=== PATIENT | female | born 1955 | race Caucasian/White ===

== ENCOUNTER 2017-12-20 12:42 | Emergency (ER) | payer OTHER, SELFPAY ==
[~2017-12-20] VITALS: Ht 157.5 cm; Wt 56.2 kg
[~2017-12-20 12:42] MED LIST: ACYC400 PO; Aspirin EC325 MG PO; CLON2 PO; CRUTCH2 XX; CYCL10 PO; Cardizem CD 12120 MG PO; DULO60 PO; ELIQUIS5 MG PO; FENT50TP TOP; Fludrocortison0.1 MG PO; GABA300 PO; HYDCHL12.5 PO; LISI20 PO; METCAR500 PO; METH10 PO; METO25 PO; MORP15ER PO; Nitrostat0.4 MG SL; OXYC10ER PO; POTA10T PO; PREG300 PO; Percocet 5-3251 EACH PO; REQUIP XL6 MG PO; ROPI1 PO; SOMA250 MG PO; TRAM50 PO; TRAZ100 PO; TRAZ50 PO; TRIA80TC TOP; Voltaren100 GM TP; XARELTO20 MG PO; Zanaflex4 MG PO
[2017-12-20] MEDS ORDERED: Trazodone HCl300 MG (13:31)
[2017-12-20] MEDS ORDERED: NORTHERA300 MG PO (13:32)
[2017-12-20] MEDS ORDERED: Cymbalta60 MG (13:32)
[2017-12-20] MEDS ORDERED: Percocet 5-3251 EACH PO (13:34)
[2017-12-20] MEDS ORDERED: Crutch1 EACH UD (13:35)
[2018-10-16] MEDS ORDERED: Robaxin500 MG PO (18:14)
[2018-10-16] MEDS ORDERED: Prednisone20 MG PO (18:14)
[2018-10-16] MEDS ORDERED: Naprosyn500 MG PO (18:14)
[2018-10-16] MEDS ORDERED: KETO10 PO (18:14)
== END 2017-12-20 14:20 | disposition home or self-care (01) ==
LOC: ER 12:42
DX: S82.61XA Displaced fracture of lateral malleolus of right fibula, initial encounter for closed fracture (principal); I10 Essential (primary) hypertension; G25.81 Restless legs syndrome; I48.91 Unspecified atrial fibrillation; Z79.891 Long term (current) use of opiate analgesic; Z79.899 Other long term (current) drug therapy; I95.1 Orthostatic hypotension; X50.9XXA Other and unspecified overexertion or strenuous movements or postures, initial encounter
CPT/HCPCS: 29515; 73610; 99283

== ENCOUNTER 2019-01-29 00:56 | Day surgery (SDC) | payer MEDICARE, OTHER ==
[~2019-01-29 00:56] MED LIST changes: +Crutch1 EACH UD; +Cymbalta60 MG; +KETO10 PO; +NORTHERA300 MG PO; +Naprosyn500 MG PO; +Prednisone20 MG PO; +Robaxin500 MG PO; +Trazodone HCl300 MG
== END 2019-01-29 08:18 | disposition home or self-care (01) ==
LOC: ATC 00:56
DX: I95.1 Orthostatic hypotension (principal)
CPT/HCPCS: 96372; J0834

== ENCOUNTER 2019-06-30 08:57 | Day surgery (SDC) | payer OTHER, MEDICARE ==
--- NOTE | 2019-06-30 12:34 | NUR ---
Discharge instructions reviewed with patient. Patient verbalizes understanding. Copy given to patient to take home. Discharged via wheelchair to private car for ride home. PT RIDE HOME IS .
[2019-08-05] MEDS ORDERED: Fludrocortison0.1 MG PO (10:47)
[2019-08-05] MEDS ORDERED: Midodrine HCl10 MG PO (10:48)
[2019-08-05] MEDS ORDERED: DULO60 PO (10:48)
[2019-08-05] MEDS ORDERED: ACYC400 PO (10:48)
[2019-08-05] MEDS ORDERED: PREG300 PO (10:49)
[2019-08-05] MEDS ORDERED: Nitrostat0.4 MG SL (10:49)
[2019-08-05] MEDS ORDERED: GABA300 PO (10:50)
[2019-08-05] MEDS ORDERED: VOLTAREN100 GM TOP (10:50)
[2019-08-05] MEDS ORDERED: TRIA15CR3 TOP (10:50)
[2019-08-05] MEDS ORDERED: FERSU300 PO (10:51)
[2019-08-05] MEDS ORDERED: NORTHERA100 MG PO (10:52)
[2019-08-05] MEDS ORDERED: GLUCOSE SHOT PO (10:53)
[2019-08-05] MEDS ORDERED: HYDMOR2 PO (10:53)
== END 2019-06-30 22:47 | disposition home or self-care (01) ==
LOC: RAD 08:57 → CT 10:00 → RAD 22:47
DX: M51.16 Intervertebral disc disorders with radiculopathy, lumbar region (principal); M47.27 Other spondylosis with radiculopathy, lumbosacral region; M96.1 Postlaminectomy syndrome, not elsewhere classified; M48.061 Spinal stenosis, lumbar region without neurogenic claudication; M43.16 Spondylolisthesis, lumbar region; M70.61 Trochanteric bursitis, right hip; M16.11 Unilateral primary osteoarthritis, right hip; D64.9 Anemia, unspecified; M75.51 Bursitis of right shoulder
CPT/HCPCS: 62304; 72132; Q9966

== ENCOUNTER 2019-08-13 07:41 | Day surgery (SDC) | payer MEDICARE, OTHER ==
[~2019-08-13] VITALS: Ht 154.9 cm; Wt 57.5 kg
[~2019-08-13 07:41] MED LIST changes: +FERSU300 PO; +GLUCOSE SHOT PO; +HYDMOR2 PO; +Midodrine HCl10 MG PO; +NORTHERA100 MG PO; +TRIA15CR3 TOP; +VOLTAREN100 GM TOP
--- NOTE | 2019-08-13 09:07 | NUR ---
08/13/19 0907 Leslie Sands PROCEDURE STOPPED DUE TO PLUGGED SCOPE-SCOPE CHANGED OUT AND RESTART AT 09 ORANGE SCOPE WAS FIRST THEN RED/GREEN
== END 2019-08-13 10:06 | disposition home or self-care (01) ==
LOC: ORSCSDS 07:41
PROVIDERS: Internal Medicine Gastroenterology
PROC: 0DBL8ZX Excision of Transverse Colon, Via Natural or Artificial Opening Endoscopic, Diagnostic (ICD-10-PCS; principal; 2019-08-13 09:00)
PROC: 0D5L8ZZ Destruction of Transverse Colon, Via Natural or Artificial Opening Endoscopic (ICD-10-PCS; principal; 2019-08-13 09:00)
PROC: 0DBN8ZX Excision of Sigmoid Colon, Via Natural or Artificial Opening Endoscopic, Diagnostic (ICD-10-PCS; principal; 2019-08-13 09:00)
DX: Z12.11 Encounter for screening for malignant neoplasm of colon (principal); Z86.010 Personal history of colon polyps; D12.3 Benign neoplasm of transverse colon; K63.5 Polyp of colon; Z15.09 Genetic susceptibility to other malignant neoplasm; I10 Essential (primary) hypertension; Z87.891 Personal history of nicotine dependence; Z79.899 Other long term (current) drug therapy; Q27.33 Arteriovenous malformation of digestive system vessel; K64.8 Other hemorrhoids
CPT/HCPCS: 88305; J2405; J2704; J7120

== ENCOUNTER 2019-08-26 21:14 | Observation (INO) | payer OTHER, MEDICARE ==
[~2019-08-26] VITALS: Ht 154.9 cm; Wt 66.0 kg
[2019-08-26 22:13] LABS: BASOPHILS ABSOLUTE AUTO 0.03 K/mm3 (0.00-0.23); BASOPHILS PERCENT AUTO 0 % (0-2); EOSINOPHILS PERCENT AUTO 1 % (0-6); Hematocrit 29.2 % (33.0-51.0); Hemoglobin 9.5 g/dL (11.5-16.0); IMMATURE GRAN ABSOLUTE AUTO 0.05 K/mm3 (0.00-0.10); IMMATURE GRAN PERCENT AUTO 1 % (0-1); LYMPHOCYTES ABSOLUTE AUTO 0.67 K/mm3 (0.84-5.20); LYMPHOCYTES PERCENT AUTO 7 % (21-46); MONOCYTES ABSOLUTE AUTO 0.84 K/mm3 (0.16-1.47); MONOCYTES PERCENT AUTO 8 % (4-13); Mean Corpuscular HGB 29.9 pg (26.0-34.0); Mean Corpuscular HGB Conc 32.5 g/dL (31.5-36.5); Mean Corpuscular Volume 92 fL (80-100); Mean Platelet Volume 10.9 fL (9.1-12.4); NEUTROPHILS ABSOLUTE AUTO 8.29 K/mm3 (1.96-9.15); NEUTROPHILS PERCENT AUTO 83 % (41-73); Platelet Count 173 K/mm3 (150-400); RDW Coefficient Variation 12.7 % (11.7-14.2); RDW Standard Deviation 42.3 fL (35.1-46.3); Red Blood Cell Count 3.18 M/mm3 (3.80-5.20); White Blood Cell Count 9.98 K/mm3 (4.00-11.30)
[2019-08-26 22:33] LABS: Alanine Aminotransfer (ALT/SGP 14 U/L (12-78); Albumin, Blood 2.7 g/dL (3.4-5.0); Albumin/Globulin Ratio 0.9 (0.8-1.8); Alk Phos 102 U/L (50-136); Anion Gap 2 mmol/L (6-16); Aspartate Aminotrans (AST/SGOT 24 U/L (12-37); Bilirubin, Total 0.7 mg/dL (0.1-1.0); Blood Urea Nitrogen 14 mg/dL (8-24); Bun/Creatinine Ratio 21.6 (12.0-20.0); CO2, Blood 31 mmol/L (21-32); Calcium, Blood 8.4 mg/dL (8.5-10.1); Chloride, Blood 101 mmol/L (98-108); Creatinine, Blood 0.65 mg/dL (0.40-1.00); Glomerular Filtration Rate >60 (60-); Glucose, Blood 109 mg/dL (70-99); Potassium, Blood 3.5 mmol/L (3.5-5.5); Sodium, Blood 134 mmol/L (136-145); Total Protein, Blood 5.7 g/dL (6.4-8.2)
--- NOTE | 2019-08-27 02:49 | NUR ---
PCU ADMIT PT BROUGHT TO PCU RM 01 FROM ER BY PAULO @ 0200. PT SLID OVER FROM ER AUDREYRNEY TO PCU BED BY 4 STAFF. PT REPORTED TO HAVE CONVERTED FROM AFIB ON THE CARDIZEM GTT @ 5 MG/HR WHILE IN THE ER PRIOR TO COMING TO THE FLOOR. EKG PRINTED IN CHART. PT FOUND TO BE IN NSR, HR 70'S W/ A BP OF 88/64 UPON ARRIVAL TO UNIT. POWERGLIDE PLACED IN AUGUSTINA BY EGG CASER. NS GTT INFUSING PER ORDERS. PT C/O BACK, HIP, AND LEG PAIN. PT REPORTS FALLING AT HOME AFTER DISCHARGING HOME FROM [facility] AFTER BACK SURGERY. PT RESTLESS IN BED, RATING PAIN A 8/10. PT UNABLE TO KEEP LEGS STILL. MEDICATION PER EMAR/PT REQUEST. WILL CONTINUE TO MONITOR AND PROVIDE CARE.
[2019-08-27 05:01] LABS: Free Thyroxine 1.1 ng/dL (0.70-1.60)
[2019-08-27 05:03] LABS: Triiodothyronine, Free 2.28 pg/mL (2.18-3.98)
--- NOTE | 2019-08-27 05:49 | NUR ---
SHIFT SUMMARY PT A&O X4. MONITOR SHOWS NSR, HR 70'S. BP IMPROVING. VSS. PT PAINFUL W/ MOVEMENT. PT C/O PAIN TO BACK, HIPS, AND LEGS, MEDICATING PER EMAR/PT REQUEST. 1 PERSON ASSIST TO BEDSIDE COMMODE W/ CAREFUL PT TRANSFER KEEPING PT'S BACK STRAIGHT. NS GTT INFUSING PER ORDERS VIA AUGUSTINA POWERGLIDE. WILL CONTINUE TO MONITOR AND PROVIDE CARE UNTIL REPORT OFF TO DAY SHIFT RN.
--- NOTE | 2019-08-27 17:27 | NUR ---
SHIFT SUMMARY PT ALERT AND ORIENTED. VS STABLE. O2 SATS REMAIN ABOVE 90% ON RA. PT HAS BEEN IN NSR ALL SHIFT. PT COMPLAINS OF PAIN IN HER BACK AND MEDICATED PER EMAR. PT UNSTEADY ON FEET. PT USES FWW AND 1 ASSIST TO BSC. PT ABLE TO REPOSITION HERSELF IN BED. SMALL SWOLLEN AREA IN LOWER BACK DR. JOHNSON AWARE IS UNCHANGED SINCE THIS AM. WILL CONTINUE TO MONITOR CLOSELY AND REPORT TO ONCOMING RN. CALL LIGHT IN REACH.
[2019-08-28 04:29] LABS: BASOPHILS ABSOLUTE AUTO 0.02 K/mm3 (0.00-0.23); BASOPHILS PERCENT AUTO 0 % (0-2); EOSINOPHILS ABSOLUTE AUTO 0.17 K/mm3 (0.00-0.68); EOSINOPHILS PERCENT AUTO 3 % (0-6); Hematocrit 26.7 % (33.0-51.0); Hemoglobin 8.6 g/dL (11.5-16.0); IMMATURE GRAN ABSOLUTE AUTO 0.03 K/mm3 (0.00-0.10); IMMATURE GRAN PERCENT AUTO 1 % (0-1); LYMPHOCYTES ABSOLUTE AUTO 0.88 K/mm3 (0.84-5.20); LYMPHOCYTES PERCENT AUTO 18 % (21-46); MONOCYTES ABSOLUTE AUTO 0.49 K/mm3 (0.16-1.47); MONOCYTES PERCENT AUTO 10 % (4-13); Mean Corpuscular HGB Conc 32.2 g/dL (31.5-36.5); Mean Platelet Volume 10.6 fL (9.1-12.4); NEUTROPHILS ABSOLUTE AUTO 3.38 K/mm3 (1.96-9.15); NEUTROPHILS PERCENT AUTO 68 % (41-73); Platelet Count 199 K/mm3 (150-400); RDW Standard Deviation 46.3 fL (35.1-46.3); Red Blood Cell Count 2.77 M/mm3 (3.80-5.20); White Blood Cell Count 4.97 K/mm3 (4.00-11.30)
[2019-08-28 04:31] LABS: Mean Corpuscular Volume 96 fL (80-100)
[2019-08-28 04:51] LABS: Alanine Aminotransfer (ALT/SGP 13 U/L (12-78); Albumin, Blood 2.5 g/dL (3.4-5.0); Albumin/Globulin Ratio 0.8 (0.8-1.8); Alk Phos 106 U/L (50-136); Anion Gap 4 mmol/L (6-16); Aspartate Aminotrans (AST/SGOT 23 U/L (12-37); Bilirubin, Total 0.4 mg/dL (0.1-1.0); Blood Urea Nitrogen 10 mg/dL (8-24); Bun/Creatinine Ratio 16.1 (12.0-20.0); CO2, Blood 29 mmol/L (21-32); Calcium, Blood 8.4 mg/dL (8.5-10.1); Chloride, Blood 108 mmol/L (98-108); Creatinine, Blood 0.62 mg/dL (0.40-1.00); Globulin, Blood 3.3 g/dL (2.2-4.0); Glomerular Filtration Rate >60 (60-); Glucose, Blood 78 mg/dL (70-99); Potassium, Blood 3.5 mmol/L (3.5-5.5); Sodium, Blood 141 mmol/L (136-145); Total Protein, Blood 5.8 g/dL (6.4-8.2)
--- NOTE | 2019-08-28 05:27 | NUR ---
SUMMARY NO ACUTE CHANGES THROUGH THE NIGHT. PT REMAINS A&O X4. VSS. SINUS RHYTHEM PER WAREHOUSE FORKLIFT OPERATOR. PT HAS BEEN MEDICATED PER EMAR PRN FOR PAIN. PT ENCOUARGED TO ALTERNATE ICE & HEAT FOR PAIN ALTERNATIVES, SHE REFUSES. PT DID USE KPAD FOR A TOTAL OF 10 MINUTES AND STATES THAT IT DOES NOT HELP. REPOSITIONING OFFERED. BACK BRACE APPLIED WHILE OOB. DRSG TO BACK REMAINS C/D/I. BP MEDICATIONS WERE SENT TO THE PHARMACY FOR VERIFICATION. PT IS A 1 PERSON ASSIST TO THE BSC. WCTM. CALL LIGHT IN REACH.
[2019-08-28 15:13] LABS: Hematocrit 27.6 % (33.0-51.0); Hemoglobin 8.8 g/dL (11.5-16.0)
--- NOTE | 2019-08-28 19:37 | NUR ---
a+o but in pain, medication changed to q3 has been lowering pain level, medicated and tried nonphamalogical interventions, family in room frequently, call light in reach, saline locked, rm air
[2019-08-29 04:11] LABS: BASOPHILS ABSOLUTE AUTO 0.02 K/mm3 (0.00-0.23); BASOPHILS PERCENT AUTO 0 % (0-2); EOSINOPHILS ABSOLUTE AUTO 0.17 K/mm3 (0.00-0.68); EOSINOPHILS PERCENT AUTO 3 % (0-6); Hematocrit 27.2 % (33.0-51.0); Hemoglobin 8.9 g/dL (11.5-16.0); IMMATURE GRAN ABSOLUTE AUTO 0.03 K/mm3 (0.00-0.10); IMMATURE GRAN PERCENT AUTO 1 % (0-1); LYMPHOCYTES ABSOLUTE AUTO 1.12 K/mm3 (0.84-5.20); LYMPHOCYTES PERCENT AUTO 18 % (21-46); MONOCYTES ABSOLUTE AUTO 0.63 K/mm3 (0.16-1.47); MONOCYTES PERCENT AUTO 10 % (4-13); Mean Corpuscular HGB 30.1 pg (26.0-34.0); Mean Corpuscular HGB Conc 32.7 g/dL (31.5-36.5); Mean Platelet Volume 10.4 fL (9.1-12.4); NEUTROPHILS ABSOLUTE AUTO 4.38 K/mm3 (1.96-9.15); NEUTROPHILS PERCENT AUTO 69 % (41-73); Platelet Count 247 K/mm3 (150-400); RDW Coefficient Variation 12.8 % (11.7-14.2); RDW Standard Deviation 43.5 fL (35.1-46.3); Red Blood Cell Count 2.96 M/mm3 (3.80-5.20); White Blood Cell Count 6.35 K/mm3 (4.00-11.30)
[2019-08-29 04:12] LABS: Mean Corpuscular Volume 92 fL (80-100)
[2019-08-29 04:32] LABS: Alanine Aminotransfer (ALT/SGP 14 U/L (12-78); Albumin, Blood 2.7 g/dL (3.4-5.0); Albumin/Globulin Ratio 0.8 (0.8-1.8); Alk Phos 191 U/L (50-136); Anion Gap 5 mmol/L (6-16); Aspartate Aminotrans (AST/SGOT 23 U/L (12-37); Bilirubin, Total 0.5 mg/dL (0.1-1.0); Blood Urea Nitrogen 9 mg/dL (8-24); Bun/Creatinine Ratio 13.9 (12.0-20.0); CO2, Blood 33 mmol/L (21-32); Calcium, Blood 8.7 mg/dL (8.5-10.1); Chloride, Blood 103 mmol/L (98-108); Creatinine, Blood 0.65 mg/dL (0.40-1.00); Globulin, Blood 3.2 g/dL (2.2-4.0); Glomerular Filtration Rate >60 (60-); Glucose, Blood 83 mg/dL (70-99); Potassium, Blood 3.4 mmol/L (3.5-5.5); Sodium, Blood 141 mmol/L (136-145); Total Protein, Blood 5.9 g/dL (6.4-8.2)
[2019-08-29] MEDS ORDERED: BUPR100 PO (05:59)
[2019-08-29] MEDS ORDERED: LIDOCAINE PAIN1 EACH TP (06:03)
--- NOTE | 2019-08-29 06:03 | NUR ---
ASSUMED CARE APPROXIMATELY 1900; PT A&O; SBA TO BSC; PT VERY WEAK AND PIVOTS TO COMMODE; PT STATES SHE IS NOT TO TWIST DUE TO RECENT BACK SURGERY; PT CALLS APPROPRIATELY FOR ASSISTANCE; PT HAS NUMEROUS BRUISES SCATTERED T/O DUE TO FALL AT HOME; PT STATES SHE IS IN SEVERE PAIN; MEDICATED PER EMAR; KPAD USED FOR SEVERAL HOURS, IN ADDITION TO ICE PACK, PILLOWS AND REPOSITIONING FREQUENTLY FOR COMFORT; POWERGLIDE IN L UPPER ARM FLUSHES APPROPRIATELY; PT DENIED NEED FOR [place] HOME MEDICATION; VSS; PT SLEPT FOR 2-3 HOURS IN BETWEEN INTERVENTIONS AND BATHROOM NEEDS; SKID FREE SOCKS PLACED ON PT; CALL LIGHT IN REACH; BED IN LOWEST POSITION; WILL CONTINUE TO MONITOR AND ASSESS UNTIL HAND OFF TO DAY SHIFT RN.
[2019-08-29] MEDS ORDERED: Ropinirole HCl1 MG PO (06:04)
[2019-08-29] MEDS ORDERED: RIZATRIPTAN10 MG SL (06:05)
[2019-08-29] MEDS ORDERED: METHI10 PO (06:05)
--- NOTE | 2019-08-29 11:36 | NUR ---
pain decreasing to acceptable level with medication and other nonpharmalogical interventions, pt into see pt
[2019-08-29] MEDS ORDERED: ACET325 PO (12:23)
[2019-08-29] MEDS ORDERED: CALC.25 PO (12:26)
[2019-08-29] MEDS ORDERED: HYDMOR2 PO (12:32)
--- NOTE | 2019-08-29 14:53 | NUR ---
escorted to truck, assisted in, wished them well and waved, returned wc to pcu closet, cleaned room, no possesions found
== END 2019-08-29 14:22 | disposition home or self-care (01) ==
LOC: ER 21:14 → PCU 21:15
PROVIDERS: Emergency Medicine; Family Medicine; Nurse Practitioner Acute Care; ADMIT Internal Medicine
DX: I48.92 Unspecified atrial flutter (principal); G90.8 Other disorders of autonomic nervous system; R79.89 Other specified abnormal findings of blood chemistry; E05.90 Thyrotoxicosis, unspecified without thyrotoxic crisis or storm; M79.7 Fibromyalgia; D50.0 Iron deficiency anemia secondary to blood loss (chronic); L76.32 Postprocedural hematoma of skin and subcutaneous tissue following other procedure; G25.81 Restless legs syndrome; Z98.1 Arthrodesis status; Z87.891 Personal history of nicotine dependence; Z88.5 Allergy status to narcotic agent; Z79.899 Other long term (current) drug therapy
CPT/HCPCS: 36415; 72131; 76800; 80053; 84439; 84443; 84481; 84484; 85014; 85018; 85025; 93005; 93010; 96361; 96365; 96366; 96375; 96376; 97110; 97112; 97162; 97530; 99285-25; A9270; C1751; G0378; J1170; J3010; J7030

== ENCOUNTER 2019-10-05 13:53 | Day surgery (SDC) | payer MEDICARE, OTHER ==
[~2019-10-05] VITALS: Ht 154.9 cm; Wt 58.8 kg
[~2019-10-05 13:53] MED LIST changes: +ACET325 PO; +BUPR100 PO; +CALC.25 PO; +LIDOCAINE PAIN1 EACH TP; +METHI10 PO; +RIZATRIPTAN10 MG SL; +Ropinirole HCl1 MG PO
--- NOTE | 2019-10-05 14:12 | NUR ---
10/05/19 1412 Juana Rodriguez FIRST IV STICK IN RIGHT HAND DID NOT WORK
--- NOTE | 2019-10-05 14:42 | NUR ---
10/05/19 1442 Bonita Henriquez UPON ENTERING THE OR, PT C/O DISCOMFORT IN IV. R AC APPEARED INFILTRATED, IV NOT RUNNING. ATTEMPTING TO START NEW IV AT THIS TIME
--- NOTE | 2019-10-05 15:53 | NUR ---
10/05/19 2256 Kimberly Wu WHEN ASKED PT. IF SHE HAD ANY PAIN PT. VERBALIZES HER LEGS BOTHER HER. PT. VERBALIZES HAVING RESTLESS LEG SYNDROME. PT. MOVING LEGS CONSTANTLY IN BED. FOB ELEVATED FOR PT. PT ALSO VERBALIZES HAVING SOME BACK PAIN RATING A "7". PT. CAME IN WITH BACK PAIN OF A "7".
== END 2019-10-05 15:40 | disposition home or self-care (01) ==
LOC: ORSCSDS 13:53
PROVIDERS: Internal Medicine Gastroenterology
PROC: 0DJ08ZZ Inspection of Upper Intestinal Tract, Via Natural or Artificial Opening Endoscopic (ICD-10-PCS; principal; 2019-10-05 15:15)
DX: Z15.09 Genetic susceptibility to other malignant neoplasm (principal); I10 Essential (primary) hypertension; I48.91 Unspecified atrial fibrillation; F41.8 Other specified anxiety disorders; Z79.899 Other long term (current) drug therapy
CPT/HCPCS: J2370; J2704; J7120

== ENCOUNTER → 2019-10-11 | Outpatient (CLI) | payer MEDICARE, OTHER ==
[~2019-10-11] MED LIST changes: +ONDA4ODT SL
[2019-10-13 15:07] LABS: HPV 16 Negative (Negative); HPV 18 Negative (Negative); HPV OTHER HR TYPES Negative (Negative)
== END | disposition home or self-care (01) ==
LOC: LAB 15:16 → LAB SHORT 15:16
PROVIDERS: Obstetrics & Gynecology
DX: Z01.419 Encounter for gynecological examination (general) (routine) without abnormal findings (principal)
CPT/HCPCS: 87624; G0123

== ENCOUNTER 2019-10-14 14:34 | Emergency (ER) | payer MEDICARE, OTHER ==
[~2019-10-14] VITALS: Ht 154.9 cm; Wt 59.0 kg
[~2019-10-14 14:34] MED LIST changes: -ONDA4ODT SL
[2019-10-14 15:55] LABS: BASOPHILS ABSOLUTE AUTO 0.02 K/mm3 (0.00-0.23); BASOPHILS PERCENT AUTO 0 % (0-2); EOSINOPHILS ABSOLUTE AUTO 0.02 K/mm3 (0.00-0.68); EOSINOPHILS PERCENT AUTO 0 % (0-6); Hematocrit 36.5 % (33.0-51.0); Hemoglobin 11.3 g/dL (11.5-16.0); IMMATURE GRAN ABSOLUTE AUTO 0.04 K/mm3 (0.00-0.10); IMMATURE GRAN PERCENT AUTO 0 % (0-1); LYMPHOCYTES PERCENT AUTO 20 % (21-46); MONOCYTES ABSOLUTE AUTO 0.71 K/mm3 (0.16-1.47); MONOCYTES PERCENT AUTO 8 % (4-13); Mean Corpuscular HGB 28.5 pg (26.0-34.0); Mean Platelet Volume 10.7 fL (9.1-12.4); NEUTROPHILS ABSOLUTE AUTO 6.66 K/mm3 (1.96-9.15); NEUTROPHILS PERCENT AUTO 72 % (41-73); Platelet Count 311 K/mm3 (150-400); RDW Coefficient Variation 14.7 % (11.7-14.2); RDW Standard Deviation 50.1 fL (35.1-46.3); Red Blood Cell Count 3.96 M/mm3 (3.80-5.20); White Blood Cell Count 9.25 K/mm3 (4.00-11.30)
[2019-10-14 16:15] LABS: Alanine Aminotransfer (ALT/SGP 16 U/L (12-78); Albumin, Blood 3.3 g/dL (3.4-5.0); Albumin/Globulin Ratio 1.1 (0.8-1.8); Alk Phos 149 U/L (50-136); Anion Gap 6 mmol/L (6-16); Aspartate Aminotrans (AST/SGOT 13 U/L (12-37); Bilirubin, Total 0.3 mg/dL (0.1-1.0); Blood Urea Nitrogen 23 mg/dL (8-24); Bun/Creatinine Ratio 24.7 (12.0-20.0); CO2, Blood 27 mmol/L (21-32); Calcium, Blood 8.6 mg/dL (8.5-10.1); Chloride, Blood 110 mmol/L (98-108); Creatinine, Blood 0.93 mg/dL (0.40-1.00); Globulin, Blood 3.1 g/dL (2.2-4.0); Glomerular Filtration Rate >60 (60-); Glucose, Blood 100 mg/dL (70-99); Potassium, Blood 4.1 mmol/L (3.5-5.5); Sodium, Blood 143 mmol/L (136-145); Total Protein, Blood 6.4 g/dL (6.4-8.2)
[2019-10-14 16:16] LABS: Mean Corpuscular Volume 92 fL (80-100)
== END 2019-10-14 17:10 | disposition home or self-care (01) ==
LOC: ER 14:34
PROVIDERS: Physician Assistant
DX: M54.16 Radiculopathy, lumbar region (principal); I10 Essential (primary) hypertension; I48.91 Unspecified atrial fibrillation; Z88.5 Allergy status to narcotic agent; Z79.899 Other long term (current) drug therapy
CPT/HCPCS: 36415; 80053; 85025; 99283

== ENCOUNTER 2019-11-09 18:41 | Emergency (ER) | payer MEDICARE, OTHER ==
[~2019-11-09] VITALS: Ht 154.9 cm; Wt 55.3 kg
[2019-11-09 19:09] LABS: BASOPHILS ABSOLUTE AUTO 0.06 K/mm3 (0.00-0.23); BASOPHILS PERCENT AUTO 1 % (0-2); EOSINOPHILS ABSOLUTE AUTO 0.15 K/mm3 (0.00-0.68); EOSINOPHILS PERCENT AUTO 2 % (0-6); Hematocrit 45.4 % (33.0-51.0); Hemoglobin 14.2 g/dL (11.5-16.0); IMMATURE GRAN ABSOLUTE AUTO 0.04 K/mm3 (0.00-0.10); IMMATURE GRAN PERCENT AUTO 0 % (0-1); LYMPHOCYTES ABSOLUTE AUTO 3.01 K/mm3 (0.84-5.20); LYMPHOCYTES PERCENT AUTO 32 % (21-46); MONOCYTES ABSOLUTE AUTO 0.72 K/mm3 (0.16-1.47); MONOCYTES PERCENT AUTO 8 % (4-13); Mean Corpuscular HGB 27.2 pg (26.0-34.0); Mean Corpuscular HGB Conc 31.3 g/dL (31.5-36.5); Mean Corpuscular Volume 87 fL (80-100); Mean Platelet Volume 10.6 fL (9.1-12.4); NEUTROPHILS PERCENT AUTO 58 % (41-73); Platelet Count 376 K/mm3 (150-400); RDW Coefficient Variation 14.2 % (11.7-14.2); RDW Standard Deviation 45.8 fL (35.1-46.3); Red Blood Cell Count 5.22 M/mm3 (3.80-5.20); White Blood Cell Count 9.48 K/mm3 (4.00-11.30)
[2019-11-09 19:33] LABS: Alanine Aminotransfer (ALT/SGP 18 U/L (12-78); Albumin, Blood 3.8 g/dL (3.4-5.0); Albumin/Globulin Ratio 1.1 (0.8-1.8); Alk Phos 145 U/L (50-136); Anion Gap 8 mmol/L (6-16); Aspartate Aminotrans (AST/SGOT 20 U/L (12-37); Bilirubin, Total 0.6 mg/dL (0.1-1.0); Blood Urea Nitrogen 13 mg/dL (8-24); CO2, Blood 24 mmol/L (21-32); Calcium, Blood 9.6 mg/dL (8.5-10.1); Chloride, Blood 107 mmol/L (98-108); Creatinine, Blood 0.82 mg/dL (0.40-1.00); Globulin, Blood 3.6 g/dL (2.2-4.0); Glomerular Filtration Rate >60 (60-); Glucose, Blood 126 mg/dL (70-99); Potassium, Blood 3.4 mmol/L (3.5-5.5); Sodium, Blood 139 mmol/L (136-145); Total Protein, Blood 7.4 g/dL (6.4-8.2)
[2019-11-09] MEDS ORDERED: ONDA4ODT SL (22:08)
== END 2019-11-09 22:39 | disposition home or self-care (01) ==
LOC: ER 18:41
PROVIDERS: Emergency Medicine
DX: R19.7 Diarrhea, unspecified (principal); Z88.5 Allergy status to narcotic agent; Z79.899 Other long term (current) drug therapy; I10 Essential (primary) hypertension; I48.91 Unspecified atrial fibrillation
CPT/HCPCS: 80053; 83690; 85025; 96361; 96374; 96375; 99284-25; A9270-GY; J0780; J2405; J7120

== ENCOUNTER 2020-01-04 08:23 | Day surgery (SDC) | payer MEDICARE, OTHER ==
[~2020-01-04] VITALS: Ht 154.9 cm; Wt 58.7 kg
[~2020-01-04 08:23] MED LIST changes: +ONDA4ODT SL
--- NOTE | 2020-01-04 11:12 | NUR ---
01/04/20 1112 Nahomy Mcdaniel CASE DELAYED DUE TO HIGH BLOOD PRESSURE PRIOR TO STARTING PROCEDURE
== END 2020-01-04 12:04 | disposition home or self-care (01) ==
LOC: ORSCSDS 08:23
PROVIDERS: Internal Medicine Gastroenterology
PROC: 0DB58ZX Excision of Esophagus, Via Natural or Artificial Opening Endoscopic, Diagnostic (ICD-10-PCS; principal; 2020-01-04 09:45)
PROC: 0D758ZZ Dilation of Esophagus, Via Natural or Artificial Opening Endoscopic (ICD-10-PCS; principal; 2020-01-04 09:45)
DX: Z15.09 Genetic susceptibility to other malignant neoplasm (principal); M79.7 Fibromyalgia; F41.8 Other specified anxiety disorders; I10 Essential (primary) hypertension; G25.81 Restless legs syndrome; Z87.891 Personal history of nicotine dependence
CPT/HCPCS: 88305; J2370; J2704; J7120

== ENCOUNTER 2020-03-27 08:12 | Day surgery (SDC) | payer MEDICARE, OTHER ==
--- NOTE | 2020-03-27 11:55 | NUR ---
RECEIVED REPORT FROM ANITA ELIZONDO. PT WAS LAYING IN BED WATHCHING TV. DRESSING TO LUMBAR SPINE CDI. PT DENIED HEADACHE OR PAIN. DRINKING COFFEE AND EATING HARDY CRACKERS. T/O RECOVERY PT WAS SUFFERING FROM SEVERE RLS. PT BROUGHT IN HOME MEDS. PT RLS SETTLED DOWN WITH MEDS AND SHE WAS ABLE TO AMBULATE TO BR WITHOUT ASSIST. REMAINED STEADY BASELINE WITH NUERO CHECKS INTACT. BANDAID REMAINED CDI T/O RECOVERY. Discharge instructions reviewed with patient. Patient verbalizes understanding. Copy given to patient to take home. Patient States Post-Procedure ride home has been arranged. Discharged via wheelchair to private car for ride home.
== END 2020-03-27 22:39 | disposition home or self-care (01) ==
LOC: RAD 08:12
DX: M43.12 Spondylolisthesis, cervical region (principal); Z98.1 Arthrodesis status; I48.91 Unspecified atrial fibrillation; Z79.899 Other long term (current) drug therapy; Z88.5 Allergy status to narcotic agent
CPT/HCPCS: 62302; 72126; Q9966

== ENCOUNTER 2020-05-02 12:53 | Emergency (ER) | payer MEDICARE, OTHER ==
[~2020-05-02] VITALS: Ht 152.4 cm; Wt 56.7 kg
[2020-05-02 14:41] LABS: BASOPHILS ABSOLUTE AUTO 0.01 K/mm3 (0.00-0.23); BASOPHILS PERCENT AUTO 0 % (0-2); EOSINOPHILS ABSOLUTE AUTO 0.01 K/mm3 (0.00-0.68); EOSINOPHILS PERCENT AUTO 0 % (0-6); Hematocrit 43.8 % (33.0-51.0); Hemoglobin 13.9 g/dL (11.5-16.0); IMMATURE GRAN ABSOLUTE AUTO 0.02 K/mm3 (0.00-0.10); IMMATURE GRAN PERCENT AUTO 0 % (0-1); LYMPHOCYTES ABSOLUTE AUTO 0.56 K/mm3 (0.84-5.20); LYMPHOCYTES PERCENT AUTO 9 % (21-46); MONOCYTES PERCENT AUTO 2 % (4-13); Mean Corpuscular HGB 29.1 pg (26.0-34.0); Mean Corpuscular HGB Conc 31.7 g/dL (31.5-36.5); Mean Corpuscular Volume 92 fL (80-100); NEUTROPHILS ABSOLUTE AUTO 5.52 K/mm3 (1.96-9.15); NEUTROPHILS PERCENT AUTO 89 % (41-73); RDW Coefficient Variation 15.4 % (11.7-14.2); RDW Standard Deviation 50.2 fL (35.1-46.3); Red Blood Cell Count 4.78 M/mm3 (3.80-5.20); White Blood Cell Count 6.22 K/mm3 (4.00-11.30)
[2020-05-02 14:48] LABS: Mean Platelet Volume 10.5 fL (9.1-12.4); Platelet Count 238 K/mm3 (150-400)
[2020-05-02 15:00] LABS: Alanine Aminotransfer (ALT/SGP 30 U/L (12-78); Albumin, Blood 3.7 g/dL (3.4-5.0); Albumin/Globulin Ratio 1.1 (0.8-1.8); Alk Phos 142 U/L (50-136); Anion Gap 5 mmol/L (6-16); Aspartate Aminotrans (AST/SGOT 27 U/L (12-37); Bilirubin, Total 0.3 mg/dL (0.1-1.0); Blood Urea Nitrogen 22 mg/dL (8-24); Bun/Creatinine Ratio 26.8 (12.0-20.0); CO2, Blood 25 mmol/L (21-32); Calcium, Blood 8.9 mg/dL (8.5-10.1); Chloride, Blood 110 mmol/L (98-108); Creatinine, Blood 0.82 mg/dL (0.40-1.00); Globulin, Blood 3.4 g/dL (2.2-4.0); Glomerular Filtration Rate >60 (60-); Glucose, Blood 117 mg/dL (70-99); Potassium, Blood 4.5 mmol/L (3.5-5.5); Sodium, Blood 140 mmol/L (136-145); Total Protein, Blood 7.1 g/dL (6.4-8.2)
== END 2020-05-02 16:18 | disposition left against medical advice (07) ==
LOC: ER 12:53
PROVIDERS: Emergency Medicine
DX: Z53.21 Procedure and treatment not carried out due to patient leaving prior to being seen by health care provider (principal)
CPT/HCPCS: 36415; 71046; 80053; 85025; 99281

== ENCOUNTER → 2020-07-19 | Outpatient (CLI) | payer MEDICARE, OTHER | END | disposition home or self-care (01) | LOC: LAB 13:26 → LAB SHORT 13:26 | DX: R30.9 Painful micturition, unspecified (principal) | CPT/HCPCS: 87086 ==

== ENCOUNTER → 2020-11-14 | Outpatient (CLI) | payer MEDICARE, OTHER ==
[~2020-11-14] MED LIST changes: +ACYC200 PO; +ALPR.5 PO; +CYMBALTA60 M1 PO; +FERROUS SULFAT325 M3 PO; +FLUDROCORTISON0.1 M1 PO; +Flecainide Acet50 MG PO; +MIDODRINE HCL10 M2 PO; +Ondansetron Odt8 MG MM; +PHENERGAN25 MG PR; +POTCHL20ER PO; +PROM25 PO; +ROPINIROLE HCL4 M1 PO; +TEMA7.5 PO; +Tambocor100 MG PO; +Ultram50 MG PO
== END | disposition home or self-care (01) ==
LOC: PLD 13:46 → LAB SHORT 13:46
DX: C44.622 Squamous cell carcinoma of skin of right upper limb, including shoulder (principal)
CPT/HCPCS: 88305

== ENCOUNTER → 2020-12-12 | Outpatient (CLI) | payer MEDICARE | LOC: LAB SHORT 12:17 → LAB 12:17 | DX: C44.622 Squamous cell carcinoma of skin of right upper limb, including shoulder (principal) | CPT/HCPCS: 88305 ==

== ENCOUNTER → 2021-01-18 | Outpatient (CLI) | payer MEDICARE | LOC: LAB 15:52 → LAB SHORT 15:52 | DX: D48.5 Neoplasm of uncertain behavior of skin (principal); Z88.5 Allergy status to narcotic agent | CPT/HCPCS: 88304; 88305 ==

== ENCOUNTER 2021-01-31 18:41 | Emergency (ER) | payer MEDICARE ==
[~2021-01-31] VITALS: Ht 167.6 cm; Wt 54.4 kg
[~2021-01-31 18:41] MED LIST changes: -ALPR.5 PO; -CYMBALTA60 M1 PO; -FERROUS SULFAT325 M3 PO; -FLUDROCORTISON0.1 M1 PO; -MIDODRINE HCL10 M2 PO; -Ondansetron Odt8 MG MM; -PHENERGAN25 MG PR; -POTCHL20ER PO; -PROM25 PO; -ROPINIROLE HCL4 M1 PO; -TEMA7.5 PO; -Tambocor100 MG PO; -Ultram50 MG PO
[2021-01-31 20:05] LABS: BASOPHILS ABSOLUTE AUTO 0.05 K/mm3 (0.00-0.23); BASOPHILS PERCENT AUTO 1 % (0-2); EOSINOPHILS ABSOLUTE AUTO 0.02 K/mm3 (0.00-0.68); EOSINOPHILS PERCENT AUTO 0 % (0-6); Hematocrit 46.5 % (33.0-51.0); Hemoglobin 15.8 g/dL (11.5-16.0); IMMATURE GRAN ABSOLUTE AUTO 0.04 K/mm3 (0.00-0.10); IMMATURE GRAN PERCENT AUTO 0 % (0-1); LYMPHOCYTES ABSOLUTE AUTO 0.96 K/mm3 (0.84-5.20); LYMPHOCYTES PERCENT AUTO 9 % (21-46); MONOCYTES ABSOLUTE AUTO 0.41 K/mm3 (0.16-1.47); MONOCYTES PERCENT AUTO 4 % (4-13); Mean Corpuscular HGB 30.9 pg (26.0-34.0); Mean Corpuscular Volume 91 fL (80-100); Mean Platelet Volume 9.9 fL (9.1-12.4); NEUTROPHILS ABSOLUTE AUTO 9.48 K/mm3 (1.96-9.15); NEUTROPHILS PERCENT AUTO 86 % (41-73); Platelet Count 256 K/mm3 (150-400); RDW Coefficient Variation 12.6 % (11.7-14.2); RDW Standard Deviation 41.7 fL (35.1-46.3); Red Blood Cell Count 5.12 M/mm3 (3.80-5.20); White Blood Cell Count 10.96 K/mm3 (4.00-11.30)
[2021-01-31 20:31] LABS: Alanine Aminotransfer (ALT/SGP 24 U/L (12-78); Albumin, Blood 4.2 g/dL (3.4-5.0); Albumin/Globulin Ratio 1.3 (0.8-1.8); Alk Phos 112 U/L (50-136); Anion Gap 8 mmol/L (6-16); Aspartate Aminotrans (AST/SGOT 24 U/L (12-37); Bilirubin, Total 0.6 mg/dL (0.1-1.0); Blood Urea Nitrogen 15 mg/dL (8-24); Bun/Creatinine Ratio 19.8 (12.0-20.0); CO2, Blood 27 mmol/L (21-32); Calcium, Blood 9.9 mg/dL (8.5-10.1); Chloride, Blood 104 mmol/L (98-108); Creatinine, Blood 0.76 mg/dL (0.40-1.00); Ethanol (Alcohol), Blood, Med <3 mg/dL; Globulin, Blood 3.3 g/dL (2.2-4.0); Glomerular Filtration Rate >60 (60-); Glucose, Blood 147 mg/dL (70-99); Magnesium, Blood 2.1 mg/dL (1.6-2.4); Potassium, Blood 3.6 mmol/L (3.5-5.5); Sodium, Blood 139 mmol/L (136-145); Total Protein, Blood 7.5 g/dL (6.4-8.2); Troponin I <0.015 ng/mL (0.000-0.040)
[2021-01-31] MEDS ORDERED: PROM25 PO (21:32)
[2021-05-03] MEDS ORDERED: CYMBALTA60 M1 PO (10:38)
[2021-05-03] MEDS ORDERED: ALPR.5 PO (10:38)
[2021-05-03] MEDS ORDERED: Tambocor100 MG PO (10:39)
[2021-05-03] MEDS ORDERED: FLUDROCORTISON0.1 M1 PO (10:39)
[2021-05-03] MEDS ORDERED: FERROUS SULFAT325 M3 PO (10:39)
[2021-05-03] MEDS ORDERED: PREG300 PO (10:40)
[2021-05-03] MEDS ORDERED: Ondansetron Odt8 MG MM (10:40)
[2021-05-03] MEDS ORDERED: MIDODRINE HCL10 M2 PO (10:40)
[2021-05-03] MEDS ORDERED: ROPINIROLE HCL4 M1 PO ×2 (10:41→10:42)
[2021-05-03] MEDS ORDERED: TEMA7.5 PO (10:42)
[2021-05-03] MEDS ORDERED: TRAM50 PO (10:42)
== END 2021-01-31 22:08 | disposition home or self-care (01) ==
LOC: ER 18:41
PROVIDERS: Emergency Medicine
DX: R11.2 Nausea with vomiting, unspecified (principal); R10.84 Generalized abdominal pain; I10 Essential (primary) hypertension; I48.91 Unspecified atrial fibrillation; Z88.4 Allergy status to anesthetic agent; Z88.5 Allergy status to narcotic agent; Z79.899 Other long term (current) drug therapy
CPT/HCPCS: 36415; 74176; 80053; 83605; 83690; 83735; 84145; 84484; 85025; 87040; 93005; 93010; 96374; 96376; 99284-25; G0480; J2550; J7120

== ENCOUNTER 2021-02-01 20:35 | Inpatient (IN) | payer MEDICARE ==
[~2021-02-01] VITALS: Ht 157.5 cm; Wt 57.9 kg
[~2021-02-01 20:35] MED LIST changes: +PROM25 PO
[2021-02-01 21:24] LABS: BASOPHILS ABSOLUTE AUTO 0.03 K/mm3 (0.00-0.23); BASOPHILS PERCENT AUTO 0 % (0-2); EOSINOPHILS ABSOLUTE AUTO 0.02 K/mm3 (0.00-0.68); EOSINOPHILS PERCENT AUTO 0 % (0-6); Hematocrit 43.7 % (33.0-51.0); Hemoglobin 14.8 g/dL (11.5-16.0); IMMATURE GRAN ABSOLUTE AUTO 0.02 K/mm3 (0.00-0.10); IMMATURE GRAN PERCENT AUTO 0 % (0-1); LYMPHOCYTES ABSOLUTE AUTO 0.99 K/mm3 (0.84-5.20); LYMPHOCYTES PERCENT AUTO 14 % (21-46); MONOCYTES ABSOLUTE AUTO 0.54 K/mm3 (0.16-1.47); MONOCYTES PERCENT AUTO 7 % (4-13); Mean Corpuscular HGB 30.8 pg (26.0-34.0); Mean Corpuscular HGB Conc 33.9 g/dL (31.5-36.5); Mean Corpuscular Volume 91 fL (80-100); NEUTROPHILS ABSOLUTE AUTO 5.74 K/mm3 (1.96-9.15); NEUTROPHILS PERCENT AUTO 78 % (41-73); Platelet Count 242 K/mm3 (150-400); RDW Coefficient Variation 12.8 % (11.7-14.2); RDW Standard Deviation 42.7 fL (35.1-46.3); Red Blood Cell Count 4.81 M/mm3 (3.80-5.20); White Blood Cell Count 7.34 K/mm3 (4.00-11.30)
[2021-02-01 21:44] LABS: Alanine Aminotransfer (ALT/SGP 22 U/L (12-78); Albumin, Blood 3.8 g/dL (3.4-5.0); Albumin/Globulin Ratio 1.1 (0.8-1.8); Alk Phos 97 U/L (50-136); Anion Gap 9 mmol/L (6-16); Aspartate Aminotrans (AST/SGOT 21 U/L (12-37); Bilirubin, Total 0.6 mg/dL (0.1-1.0); Blood Urea Nitrogen 11 mg/dL (8-24); Bun/Creatinine Ratio 13.9 (12.0-20.0); CO2, Blood 27 mmol/L (21-32); Calcium, Blood 9.5 mg/dL (8.5-10.1); Chloride, Blood 102 mmol/L (98-108); Creatinine, Blood 0.79 mg/dL (0.40-1.00); Globulin, Blood 3.4 g/dL (2.2-4.0); Glomerular Filtration Rate >60 (60-); Glucose, Blood 109 mg/dL (70-99); Magnesium, Blood 2.1 mg/dL (1.6-2.4); Potassium, Blood 3.4 mmol/L (3.5-5.5); Sodium, Blood 138 mmol/L (136-145); Total Protein, Blood 7.2 g/dL (6.4-8.2); Troponin I <0.015 ng/mL (0.000-0.040)
[2021-02-02] MEDS ORDERED: PHENERGAN25 MG PR
[2021-02-02] MEDS ORDERED: ONDA4ODT SL (00:01)
--- NOTE | 2021-02-02 04:02 | NUR ---
PATIENT IS A NEW ADMIT FROM THE ED. THREE PERSON TRANSFER FROM [facility] TO BED. AXOX 4 AND ONE ASSIST. REPORTS ABDOMINAL PAIN. NAUSEA/VOMITING ON ADMIT. IV CIPRO INFUSING FROM THE ED. ON ROOM AIR. PENDING TELEMETRY. REPORTS RESTLESS LEGS AND REQUIP GIVEN IN ED. IV FLAGYL INFUSING. PATIENT ORIENTED TO ROOM AND CALL LIGHT SYSTEM. WARM BLANKET PROVIDED. CALL LIGHT IN REACH. WILL CONTINUE TO MONITOR.
[2021-02-02 04:44] LABS: Anion Gap 6 mmol/L (6-16); Blood Urea Nitrogen 8 mg/dL (8-24); Bun/Creatinine Ratio 12.4 (12.0-20.0); CO2, Blood 28 mmol/L (21-32); Calcium, Blood 8.6 mg/dL (8.5-10.1); Chloride, Blood 104 mmol/L (98-108); Creatinine, Blood 0.65 mg/dL (0.40-1.00); Glomerular Filtration Rate >60 (60-); Glucose, Blood 161 mg/dL (70-99); Potassium, Blood 3.1 mmol/L (3.5-5.5); Sodium, Blood 138 mmol/L (136-145)
--- NOTE | 2021-02-02 04:57 | NUR ---
MULTINEEDLE SHIRRER REPORTS NSR 73. PATIENT REMAINS NAUSEOUS AND IV ZOFRAN GIVEN PER EMAR. BACK RESTING IN BED. CALL LIGHT IN REACH.
--- NOTE | 2021-02-02 14:58 | NUR ---
PT WAS REQUESTING FLECAINIDE ACETATE 50MG TWICE DAILY THIS IS ONE OF HER HOME MEDICAITONS. PHARMACY CALLED AND HAD CONCERNS REGARDING POSSIBLE INTERACTIONS WITH PT TAKING BEING ON IV CIPROFLOXACIN AND IT CAUSING ELONGATED QT INTERVALS AND BEING MORE AT RISK WITH LOW POTASSIUM OF 3.1. DR BLAKELY WAS NOTIFIED AND MADE AWARE OF CONCERNS. DR. BLAKELY ADDED 40MEQ PO POTASSIUM TO EMAR AND PT WAS TO BE GIVEN THE FLECAINIDE SHE TAKES AT HOME. THIS ELECTRICAL INSTALLER CONTACTED [employer] JUST TO MAKE THEM AWARE AND TO NOTIFY IF ANY CHANGES WERE NOTED.
--- NOTE | 2021-02-02 16:23 | NUR ---
TRANSFERED CARE TO MIKHAIL SANDOVAL. PT AOX4 AND HAS BEEN COOPERATIVE OF CARE. PT DENIED NAUSEA AND HAS TOLERATED FULL LIQUID DIET. PT IS A STANDBY ASSIST TO RESTROOM AND CALLS APPROPRIATELY. NO DISTRESS NOTED.
--- NOTE | 2021-02-02 17:41 | NUR ---
ADMIT: 02/01/21 DISCHARGE:02/03/21 DX: Colitis CC: cpeabody CATHIE CALL: Call Mira at home for cathie RESIDENCE: home CAREGIVER: Lang Phillips, Spouse / Partner, Alexia Souza, Child, Zak Figueroa, Child, DX: Afib, chronic pain, fibromyalgia, low back pain, nausea and vomiting. see list DME: knee brace CCM: none HOME HEALTH: [email or web address] SUMMARY: Admit: 02/01/21 02/02/[address] Rashid, ETA discharge Friday. Left transition of care letter for her discharge for 1 week follow up. cp 1: Acute colitis A/P: ?? CT scan shows diffuse colitis - No signs of infectious etiology but at this point given the severity of symptoms I would start her on ciprofloxacin and Flagyl.
--- NOTE | 2021-02-02 17:42 | NUR ---
ADMIT: 02/01/21 DISCHARGE:02/03/21 DX: Colitis CC: cpeabody CATHIE CALL: Call Mira at home for cathie RESIDENCE: home CAREGIVER: Lang Phillips, Spouse / Partner, Alexia Souza, Child, Zak Figueroa, Child, DX: Afib, chronic pain, fibromyalgia, low back pain, nausea and vomiting. see list DME: knee brace CCM: none HOME HEALTH: [email or web address] SUMMARY: Admit: 02/01/21 02/02/[address] Rashid, ETA discharge Friday. Left transition of care letter for her discharge for 1 week follow up. cp 1: Acute colitis A/P: ?? CT scan shows diffuse colitis - No signs of infectious etiology but at this point given the severity of symptoms I would start her on ciprofloxacin and Flagyl.
--- NOTE | 2021-02-03 05:38 | NUR ---
SHIFT SUMMARY: VSS. AFEB. AAOX3. COMMUNICATES NEEDS. SEVERAL BOUTS OF N/V TONIGHT W/ LITTLE RELIEF FROM ANTEMETICS. STATES THAT EVEN THOUGH SHE IS EXPERIENCING N/V, "IT IS 5X BETTER THAN IT WAS LAST NIGHT". PT DEMONSTRATES ANXIETY WHILE FEELING NAUSEAUS- ROLLING AROUND BED, MOANING LOUDLY. WILL STOP WHEN INTERACTED W/ AND CALMLY HAVE DISCUSSION BUT IMMEDIATELY RETURNS TO THIS BEHAVIOR AFTER INTERACTION. ATIVAN ADMINISTERED W/ IMPROVEMENT IN ANXIETY SYMPTOMS. REPORTS ABD PAIN 06/02 STATING THIS IS IMPROVED FROM THE PREVIOUS NIGHT. ABD SOFT, TENDER THROUGHOUT, NON-DISTENDED. REPORTS NO BM SINCE ADMIT. INDEPENDENT IN ROOM. WCTM.
[2021-02-03 05:48] LABS: Anion Gap 7 mmol/L (6-16); Blood Urea Nitrogen 11 mg/dL (8-24); Bun/Creatinine Ratio 13.4 (12.0-20.0); CO2, Blood 27 mmol/L (21-32); Calcium, Blood 9.1 mg/dL (8.5-10.1); Chloride, Blood 108 mmol/L (98-108); Creatinine, Blood 0.82 mg/dL (0.40-1.00); Glomerular Filtration Rate >60 (60-); Glucose, Blood 107 mg/dL (70-99); Potassium, Blood 3.3 mmol/L (3.5-5.5); Sodium, Blood 142 mmol/L (136-145)
--- NOTE | 2021-02-03 18:39 | NUR ---
SHIFT SUMMARY PATIENT ALERT AND ORIENTED THROUGHOUT THIS SHIFT. PATIENT STATES MILD NAUSEA THIS AM. IV REMOVED DUE TO LEAKING. ATTEMPTS TO REPLACE IV UNSUCCESSFUL. PATIENT ADVANCED TO MECHANICAL SOFT DIET FOR LUNCH. PATIENT EXTREMELY NAUSEOUS AFTER LUNCH. DR BASHIR, SUBLINGUAL ZOFRAN ORDERED AND ADMINISTERED. NAUSEA REMAINS. FURTHER ATTEMPTS TO REPLACE IV HAVE BEEN UNSUCCESSFUL. PATIENT'S NAUSEA HAS DIMINISHED WITH TIME, YET PATIENT STATES THAT ORAL INTAKE EXACERBATES THE NAUSEA. PATIENT CURRENTLY SITTING UP IN BED, NURSE IN THE ROOM ATTEMPTING TO PLACE AN IV.
--- NOTE | 2021-02-04 04:47 | NUR ---
SHIFT SUMMARY: VSS. AFEB. AAOX4. PT STATES NAUSEA STILL MILDLY PRESENT BUT LARGELY IMPROVED. NO VOMITING TONIGHT. ZOFRAN GIVEN X 1. ABD NON-TENDER, NON-DISTENDED. OVERALL STATES SHE IS FEELING MUCH BETTER. TOLERATED ALL HS PO MEDS. HAS TAKEN ONLY SMALL AMTS OF PO CLEAR LIQUIDS TONIGHT. MAINTENANCE IV FLUIDS INFUSING. IV ABT PER ORDERS. NO ACUTE OVERNIGHT EVENTS. WCTM.
--- NOTE | 2021-02-04 11:46 | NUR ---
AFTER ASSESSING PATIENT IS MORNING DR BLAKELY ORDERED THAT NS W/ KCL BE TURNED DOWN FROM 125/HR TO 75/HR. ADJUSTED DRIP ON PUMP AT THAT TIME. ORDER CHANGED IN EMAR.
[2021-02-04 14:37] LABS: BASOPHILS ABSOLUTE AUTO 0.04 K/mm3 (0.00-0.23); BASOPHILS PERCENT AUTO 1 % (0-2); EOSINOPHILS ABSOLUTE AUTO 0.07 K/mm3 (0.00-0.68); EOSINOPHILS PERCENT AUTO 1 % (0-6); Hematocrit 41.4 % (33.0-51.0); Hemoglobin 13.8 g/dL (11.5-16.0); IMMATURE GRAN ABSOLUTE AUTO 0.02 K/mm3 (0.00-0.10); IMMATURE GRAN PERCENT AUTO 0 % (0-1); LYMPHOCYTES ABSOLUTE AUTO 0.87 K/mm3 (0.84-5.20); LYMPHOCYTES PERCENT AUTO 16 % (21-46); MONOCYTES ABSOLUTE AUTO 0.53 K/mm3 (0.16-1.47); MONOCYTES PERCENT AUTO 10 % (4-13); Mean Corpuscular HGB 30.5 pg (26.0-34.0); Mean Corpuscular HGB Conc 33.3 g/dL (31.5-36.5); Mean Corpuscular Volume 91 fL (80-100); Mean Platelet Volume 10.5 fL (9.1-12.4); NEUTROPHILS ABSOLUTE AUTO 4.04 K/mm3 (1.96-9.15); NEUTROPHILS PERCENT AUTO 73 % (41-73); Platelet Count 204 K/mm3 (150-400); RDW Coefficient Variation 12.8 % (11.7-14.2); RDW Standard Deviation 42.5 fL (35.1-46.3); Red Blood Cell Count 4.53 M/mm3 (3.80-5.20); White Blood Cell Count 5.57 K/mm3 (4.00-11.30)
[2021-02-04 15:10] LABS: Alanine Aminotransfer (ALT/SGP 42 U/L (12-78); Albumin, Blood 3.3 g/dL (3.4-5.0); Albumin/Globulin Ratio 1.3 (0.8-1.8); Alk Phos 75 U/L (50-136); Anion Gap 6 mmol/L (6-16); Aspartate Aminotrans (AST/SGOT 50 U/L (12-37); Bilirubin, Total 0.5 mg/dL (0.1-1.0); Blood Urea Nitrogen 7 mg/dL (8-24); Bun/Creatinine Ratio 8.9 (12.0-20.0); C-Reactive Protein, High Sens. 0.718 mg/L (0.000-3.000); CO2, Blood 28 mmol/L (21-32); Calcium, Blood 8.5 mg/dL (8.5-10.1); Chloride, Blood 107 mmol/L (98-108); Creatinine, Blood 0.79 mg/dL (0.40-1.00); Free Thyroxine 0.97 ng/dL (0.70-1.60); Globulin, Blood 2.6 g/dL (2.2-4.0); Glomerular Filtration Rate >60 (60-); Glucose, Blood 135 mg/dL (70-99); Potassium, Blood 3.4 mmol/L (3.5-5.5); Sodium, Blood 141 mmol/L (136-145); Thyroid Stimulating Hormone 0.162 uIU/mL (0.360-4.800); Total Protein, Blood 5.9 g/dL (6.4-8.2)
--- NOTE | 2021-02-04 15:10 | NUR ---
PATIENT CONTINUES TO HAVE N/V AND ELEVATED BLOOD PRESSURE. AFTER HER ELEVATED BP THIS AM SHE WAS GIVEN IV LABETALOL WITH EFFECTIVENESS HOWEVER HER BP WENT RIGHT BACK UP AND EVEN ELEVATED HIGHER THAN IT STARTED. I ENDED UP GIVING THE PATIENT SOME IV ATIVAN AND THEN RECHECKING HER BP AND IT CAME DOWN TO THE LOW ONE-TEENS SYSTOLLICALLY. PATIENT HAS BEEN HAVING NAUSEA AND HAS VOMITED A FEW TIMES AND GIVEN SOME ANTI-EMETICS WITH MODERATE EFFECTIVENESS. PATIENT INFORMED DR BLAKELY THAT SHE HAS BEEN HAVING N/V FOR 6 MONTHS, ON AND OFF. CONSULT FOR GI WAS PLACED AND CALLED IN. PATIENT CONTINUES ON IV NS W/ 20MEQ KCL; PER DR BLAKELY THE RATE WAS DECREASED FROM 125/HR TO 75/HR. PATIENT ALSO CONTINUES TO RECIEVE IV ABX WITHOUT S/SX OF ADVERSE REACTIONS NOTED OR REPORTED. PATIENT IS INDEPENDENT IN ROOM AND CALLS FOR STAFF ASSIST APPROPRIATELY. PATIENT RESTING IN BED AT THIS TIME. CALL LIGHT IS WITHIN REACH.
--- NOTE | 2021-02-05 07:52 | NUR ---
SHIFT SUMMARY: BP ELEVATED THIS AM. CAME DOWN W/ PRN LABETALOL. NO HEADACHE OR CHEST PAIN. STATES SHE FELT A LITTLE DIZZY AFTER RECEIVING PRN LABETALOL. PT DENIES N/V THRU THE NIGHT. JENNIFER CLEAR LIQUIDS. CONT W/ MILD UPPER ABD DISCOMFORT W/ PALPATION. IVF INFUSING PER ORDERS. NO ACUTE OVERNIGHT EVENTS. REPORT GIVEN TO DAY RN.
--- NOTE | 2021-02-05 17:42 | NUR ---
Care coordination referral- Admit: 02/04/21 Discharge: Dx: Acute colitis CC: kwilcox CATHIE call: Call Mira at home for CATHIE Residence: Home Caregiver: Lang Phillips, spouse, Dx: Afib, chronic pain, Fibromyalgia, low back pain, nausea and vomiting, see list DME: knee brace CCM: none Home Health: [email or web address] Summary: Admit 02/04/21 02/05/21- Per chart review, there is concern for colitis throughout colon. Pt was started on IV abx. GI consultation has been ordered. No plan for d/c at this time. -miranda
--- NOTE | 2021-02-05 18:15 | NUR ---
ALERT. ORIENTED. POOR APPETITE. IN TO SEE PATIENT WITH POSSIBLE ENDOSCOPE FOR TOMORROW. POWERGLIDE INFUSING WITHOUT DIFFICULTY. MEDICATED X 1 FOR NAUSEA WITH GOOD RESULTS. UNLABORED RESPIRATIONS. TELE ON. TM
--- NOTE | 2021-02-05 20:00 | NUR ---
ASSUMPTION OF CARE. AOX3, INDEPENDENT IN THE ROOM. DENIES ANY NAUSEA AT THIS TIME, NO PAIN EXCEPT HER CHRONIC IN NECK AND BACK WHICH IS "OK" RIGHT NOW. LUNG SOUNDS ARE CLEAR, HR SINUS ON TELE. ABDOMIN SLIGHTLY DISTENDED, TENDER, PASSING FLATUS, DOES NOT KNOW WHEN HER LAST BM WAS NOTED. STATES SHE THINKS SHE HAS COLITIS WHICH THIS CAUSED A FLARE UP. IVF INFUSING INTO POWERGLIDE WELL. DENIES ANY NEEDS AT THIS TIME. CALL LIGHT IS IN REACH.
[2021-02-05] MEDS ORDERED: TRAM50 PO (23:30)
--- NOTE | 2021-02-06 05:16 | NUR ---
SHIFT SUMMARY: AOX3, INDEPENDENT.NO N/V/D. TOLERATED CLEAR DIET WELL. GETS DIZZY UPON POSITION CHANGE OCCATIONALLY. BP RUNNING FROM 100-150'S. DIASTOLIC ELEVATED THIS AM AT 103. STATES IT DOES THAT ALL THE TIME FROM LOW TO HIGH. REST OF VITALS GOOD. PAIN TOLERABLE IN HER NECK AND BACK STATES IS CHRONIC. TELE SINUS. IVF CONTINUE TO INFUSE AT 125ML/HR. SLEPT ONLY FOR SHORT PERIODS OF TIMES TONIGHT. PLAN: NPO AFTER BREAKFAST, EDG THIS AFTERNOON, POSSIBLE DC HOME. CALL LIGHT REMAINS IN REACH.
[2021-02-06 05:19] LABS: BASOPHILS ABSOLUTE AUTO 0.03 K/mm3 (0.00-0.23); BASOPHILS PERCENT AUTO 1 % (0-2); EOSINOPHILS ABSOLUTE AUTO 0.13 K/mm3 (0.00-0.68); EOSINOPHILS PERCENT AUTO 2 % (0-6); Hematocrit 39.2 % (33.0-51.0); Hemoglobin 13.1 g/dL (11.5-16.0); IMMATURE GRAN ABSOLUTE AUTO 0.02 K/mm3 (0.00-0.10); IMMATURE GRAN PERCENT AUTO 0 % (0-1); LYMPHOCYTES ABSOLUTE AUTO 1.38 K/mm3 (0.84-5.20); LYMPHOCYTES PERCENT AUTO 25 % (21-46); MONOCYTES ABSOLUTE AUTO 0.51 K/mm3 (0.16-1.47); MONOCYTES PERCENT AUTO 9 % (4-13); Mean Corpuscular HGB Conc 33.4 g/dL (31.5-36.5); Mean Corpuscular Volume 93 fL (80-100); Mean Platelet Volume 10.6 fL (9.1-12.4); NEUTROPHILS ABSOLUTE AUTO 3.55 K/mm3 (1.96-9.15); NEUTROPHILS PERCENT AUTO 63 % (41-73); Platelet Count 229 K/mm3 (150-400); RDW Coefficient Variation 12.8 % (11.7-14.2); RDW Standard Deviation 43.8 fL (35.1-46.3); Red Blood Cell Count 4.23 M/mm3 (3.80-5.20); White Blood Cell Count 5.62 K/mm3 (4.00-11.30)
[2021-02-06 06:01] LABS: Anion Gap 7 mmol/L (6-16); Blood Urea Nitrogen 6 mg/dL (8-24); Bun/Creatinine Ratio 7.6 (12.0-20.0); CO2, Blood 27 mmol/L (21-32); Calcium, Blood 8.9 mg/dL (8.5-10.1); Chloride, Blood 106 mmol/L (98-108); Creatinine, Blood 0.79 mg/dL (0.40-1.00); Glomerular Filtration Rate >60 (60-); Glucose, Blood 90 mg/dL (70-99); Potassium, Blood 3.5 mmol/L (3.5-5.5); Sodium, Blood 140 mmol/L (136-145)
[2021-02-06 10:42] LABS: Influenza A, PCR NEGATIVE (NEGATIVE); Influenza B, PCR NEGATIVE (NEGATIVE); Resp Syncytial Virus, PCR NEGATIVE (NEGATIVE); SARS-Cov-2 (COVID-19) PCR, MMC NEGATIVE (NEGATIVE)
--- NOTE | 2021-02-06 11:54 | NUR ---
TO DAY SURGERY FOR PROCEDURE
--- NOTE | 2021-02-06 12:09 | NUR ---
PT TO DAY SURGERY VIA PAULO FOR EGD W/RN SEDATION W/DR WILSON.
--- NOTE | 2021-02-06 12:34 | NUR ---
TALKED TO ABOUT D'C TELE AND ADVISED PATIENT GETS TRANDATE PRN FOR HTN. OK TO LEAVE ON.
--- NOTE | 2021-02-06 13:08 | NUR ---
02/06/21 1308 Jalyn Trujillo History, Chart, Medications and Allergies reviewed before start of procedure.PATIENT DETERMINED TO BE ASA APPROPRIATE FOR PROPOFOL SEDATION PRIOR TO START OF PROCEDURE BY .MONITOR INTACT WITH CONTINUOUS PULSE OXIMETRY AND INTERMITTENT BP.3-LEAD EKG REVIEWED WITH PHYSICIAN PRIOR TO START OF PROCEDURE.O2 VIA N/C INTACT THROUGHOUT SEDATION/PROCEDURE.Bite Block Placed
--- NOTE | 2021-02-06 13:27 | NUR ---
ALSO CALLED TO SEE WHEN PATIENT CAN EAT.LEFT MESSAGE ON VOICE MAIL THAT PATIENT HAS GAS AND POSSIBLY ORDER SIMETHICONE. AWAITING ORDERS.
--- NOTE | 2021-02-06 14:10 | NUR ---
Metn pt. in bed resting she reports to doing much better , encouraged pt. and prayed fpr her.
--- NOTE | 2021-02-06 15:11 | NUR ---
NOTIFIED PUT IN A NOTE ON PATIENT AND LOOKS LIKE HE IS SIGNING OFF.AWAITING FURTHER ORDERS.
[2021-02-06] MEDS ORDERED: POTCHL20ER PO (16:04)
--- NOTE | 2021-02-06 17:22 | NUR ---
REVIEW D'C WITH PATIENT. AWARE HAS RXS AT [facility]. AWARE [facility] WILL CALL TO MAKE AN APPT. ANSWER ALL QUESTIONS. IV D'C WITH NO BRUISING OR SWELLING. IN W/C TO POV.
--- NOTE | 2021-02-06 22:57 | NUR ---
ADMIT: 02/04/21 DISCHARGE: 02/06/21 DX: Acute colitis CC:cpeabody CATHIE CALL: CALL MIRA AT HOME FOR CATHIE- cathie apptointmet 1 week. RESIDENCE: Home with spouce CAREGIVER: LATRICE CALDERA, SPOUSE / PARTNER, ELI HARTLEY, CHILD, CHANDAN HERZOG, CHILD, DX: AFIB, CHRONIC PAIN, FIBROMYALGIA, LOW BACK PAIN, NAUSEA AND VOMITING. SEE LIST DME: Knee brace, cane CCM: none HOME HEALTH: [facility]- 201902/07/20 does not feel home bound per Mira. SUMMARY: 02/04/21 02/06/21 Discharge home today with after Upper Endo. Has colonoscopy scheduled near the end of February with Dr Benson. REviewed discharge check list and transition of care letter and expect call on Friday or . Did not identify any addtionall care needs on discharge check list. Left my name and number as a contact to reach out if CATHIE call or follow up care is not scheduled. cp 02/05/21- Per chart review, there is concern for colitis through out colon. Pt was started on IV antibiotics. GI consult has been ordered. No plan for d/c at this time. -kjw 1: Acute colitis A/P: ?? CT scan shows diffuse colitis
[2021-05-03] MEDS ORDERED: CYMBALTA60 M1 PO (10:38)
[2021-05-03] MEDS ORDERED: ALPR.5 PO (10:38)
[2021-05-03] MEDS ORDERED: FLUDROCORTISON0.1 M1 PO (10:39)
[2021-05-03] MEDS ORDERED: Tambocor100 MG PO (10:39)
[2021-05-03] MEDS ORDERED: FERROUS SULFAT325 M3 PO (10:39)
[2021-05-03] MEDS ORDERED: MIDODRINE HCL10 M2 PO (10:40)
[2021-05-03] MEDS ORDERED: Ondansetron Odt8 MG MM (10:40)
[2021-05-03] MEDS ORDERED: PREG300 PO (10:40)
[2021-05-03] MEDS ORDERED: ROPINIROLE HCL4 M1 PO ×2 (10:41→10:42)
[2021-05-03] MEDS ORDERED: TEMA7.5 PO (10:42)
[2021-05-03] MEDS ORDERED: TRAM50 PO (10:42)
== END 2021-02-06 17:53 | disposition home or self-care (01) | DRG 392 ==
LOC: ER 20:35 → MEDS 20:36
PROVIDERS: Family Medicine; Internal Medicine; Internal Medicine Gastroenterology; Physician Assistant; ADMIT Internal Medicine
PROC: 0DB68ZX Excision of Stomach, Via Natural or Artificial Opening Endoscopic, Diagnostic (ICD-10-PCS; principal; 2021-02-06 12:30)
DX: K52.9 Noninfective gastroenteritis and colitis, unspecified (principal); B37.81 Candidal esophagitis; G90.3 Multi-system degeneration of the autonomic nervous system; E87.6 Hypokalemia; Z20.822 Contact with and (suspected) exposure to COVID-19; Z15.09 Genetic susceptibility to other malignant neoplasm; G25.81 Restless legs syndrome; M79.7 Fibromyalgia; K59.09 Other constipation; I48.0 Paroxysmal atrial fibrillation; G89.29 Other chronic pain; M85.80 Other specified disorders of bone density and structure, unspecified site; E05.90 Thyrotoxicosis, unspecified without thyrotoxic crisis or storm; M19.90 Unspecified osteoarthritis, unspecified site; I10 Essential (primary) hypertension; M54.9 Dorsalgia, unspecified; G47.00 Insomnia, unspecified; Z88.5 Allergy status to narcotic agent; Z88.8 Allergy status to other drugs, medicaments and biological substances; Z79.899 Other long term (current) drug therapy; Z98.890 Other specified postprocedural states; Z87.891 Personal history of nicotine dependence
CPT/HCPCS: 0241U; 36415; 80048; 80053; 83605; 83690; 83735; 84439; 84443; 84484; 85025; 85651; 86141; 88305; 88342; 93005; 93010; 96361; 96366; 96367; 96372; 96374; 96375; 96376; 99285-25; A9270; C9113; G0378; J0744; J1650; J1720; J2060; J2405; J2550; J2704; J2765; J3411; J3475; J3480; J7030; J7042; J7120

== ENCOUNTER 2021-02-22 07:40 | Day surgery (SDC) | payer MEDICARE ==
[~2021-02-22 07:40] MED LIST changes: +PHENERGAN25 MG PR; +POTCHL20ER PO
--- NOTE | 2021-02-22 11:44 | NUR ---
PT DCD HOME IN Discharge instructions reviewed with patient. Patient verbalizes understanding. Copy given to patient to take home. Discharged via wheelchair to private car for ride home.
[2021-05-03] MEDS ORDERED: ALPR.5 PO (10:38)
[2021-05-03] MEDS ORDERED: CYMBALTA60 M1 PO (10:38)
[2021-05-03] MEDS ORDERED: FERROUS SULFAT325 M3 PO (10:39)
[2021-05-03] MEDS ORDERED: FLUDROCORTISON0.1 M1 PO (10:39)
[2021-05-03] MEDS ORDERED: Tambocor100 MG PO (10:39)
[2021-05-03] MEDS ORDERED: PREG300 PO (10:40)
[2021-05-03] MEDS ORDERED: Ondansetron Odt8 MG MM (10:40)
[2021-05-03] MEDS ORDERED: MIDODRINE HCL10 M2 PO (10:40)
[2021-05-03] MEDS ORDERED: ROPINIROLE HCL4 M1 PO ×2 (10:41→10:42)
[2021-05-03] MEDS ORDERED: TRAM50 PO (10:42)
[2021-05-03] MEDS ORDERED: TEMA7.5 PO (10:42)
== END 2021-02-22 22:52 | disposition home or self-care (01) ==
LOC: RAD 07:40 → CT 09:00 → RAD 09:00 → EDSTATUS 09:00 → RAD 22:52
DX: M50.323 Other cervical disc degeneration at C6-C7 level (principal); I48.91 Unspecified atrial fibrillation; G25.81 Restless legs syndrome; I95.1 Orthostatic hypotension; M79.7 Fibromyalgia; E05.20 Thyrotoxicosis with toxic multinodular goiter without thyrotoxic crisis or storm; Z87.891 Personal history of nicotine dependence; Z98.1 Arthrodesis status; Z88.5 Allergy status to narcotic agent
CPT/HCPCS: 62302; 72126; Q9966

== ENCOUNTER 2021-03-08 10:40 | Emergency (ER) | payer MEDICARE ==
[~2021-03-08] VITALS: Ht 154.9 cm; Wt 52.6 kg
[2021-03-08 11:17] LABS: BASOPHILS ABSOLUTE AUTO 0.03 K/mm3 (0.00-0.23); BASOPHILS PERCENT AUTO 0 % (0-2); EOSINOPHILS PERCENT AUTO 0 % (0-6); Hematocrit 42.5 % (33.0-51.0); Hemoglobin 14.1 g/dL (11.5-16.0); IMMATURE GRAN ABSOLUTE AUTO 0.05 K/mm3 (0.00-0.10); IMMATURE GRAN PERCENT AUTO 1 % (0-1); LYMPHOCYTES ABSOLUTE AUTO 0.82 K/mm3 (0.84-5.20); LYMPHOCYTES PERCENT AUTO 8 % (21-46); MONOCYTES ABSOLUTE AUTO 0.38 K/mm3 (0.16-1.47); MONOCYTES PERCENT AUTO 4 % (4-13); Mean Corpuscular HGB 30.5 pg (26.0-34.0); Mean Corpuscular HGB Conc 33.2 g/dL (31.5-36.5); Mean Corpuscular Volume 92 fL (80-100); Mean Platelet Volume 10.6 fL (9.1-12.4); NEUTROPHILS ABSOLUTE AUTO 8.74 K/mm3 (1.96-9.15); NEUTROPHILS PERCENT AUTO 87 % (41-73); Platelet Count 306 K/mm3 (150-400); RDW Standard Deviation 43.7 fL (35.1-46.3); Red Blood Cell Count 4.63 M/mm3 (3.80-5.20); White Blood Cell Count 10.02 K/mm3 (4.00-11.30)
[2021-03-08 11:33] LABS: Alanine Aminotransfer (ALT/SGP 17 U/L (12-78); Albumin, Blood 3.9 g/dL (3.4-5.0); Albumin/Globulin Ratio 1.2 (0.8-1.8); Alk Phos 137 U/L (50-136); Anion Gap 12 mmol/L (6-16); Aspartate Aminotrans (AST/SGOT 18 U/L (12-37); Bilirubin, Total 0.6 mg/dL (0.1-1.0); Blood Urea Nitrogen 15 mg/dL (8-24); Bun/Creatinine Ratio 22.4 (12.0-20.0); CO2, Blood 26 mmol/L (21-32); Calcium, Blood 9.7 mg/dL (8.5-10.1); Chloride, Blood 103 mmol/L (98-108); Creatinine, Blood 0.67 mg/dL (0.40-1.00); Globulin, Blood 3.3 g/dL (2.2-4.0); Glomerular Filtration Rate >60 (60-); Glucose, Blood 128 mg/dL (70-99); Potassium, Blood 3.2 mmol/L (3.5-5.5); Sodium, Blood 141 mmol/L (136-145); Total Protein, Blood 7.2 g/dL (6.4-8.2)
[2021-03-08] MEDS ORDERED: ONDA4ODT SL (12:49)
[2021-03-08] MEDS ORDERED: Ultram50 MG PO (12:49)
== END 2021-03-08 13:11 | disposition home or self-care (01) ==
LOC: ER 10:40
PROVIDERS: Emergency Medicine
DX: E87.6 Hypokalemia (principal); R11.2 Nausea with vomiting, unspecified; Z98.890 Other specified postprocedural states; Z79.899 Other long term (current) drug therapy; Z88.4 Allergy status to anesthetic agent; Z88.5 Allergy status to narcotic agent
CPT/HCPCS: 36415; 80053; 85025; 96374; 96375; 99284-25; A9270; J1200; J2765; J3010; J7120

== ENCOUNTER 2021-03-09 07:56 | Emergency (ER) | payer MEDICARE ==
[~2021-03-09 07:56] MED LIST changes: +Ultram50 MG PO
== END 2021-03-09 09:08 | disposition left against medical advice (07) ==
LOC: ER 07:56
DX: Z53.21 Procedure and treatment not carried out due to patient leaving prior to being seen by health care provider (principal)

== ENCOUNTER 2021-03-09 20:46 | Emergency (ER) | payer MEDICARE ==
[~2021-03-09] VITALS: Ht 154.9 cm; Wt 52.2 kg
[2021-03-09 22:43] LABS: BASOPHILS ABSOLUTE AUTO 0.04 K/mm3 (0.00-0.23); BASOPHILS PERCENT AUTO 1 % (0-2); EOSINOPHILS ABSOLUTE AUTO 0.04 K/mm3 (0.00-0.68); EOSINOPHILS PERCENT AUTO 1 % (0-6); Hematocrit 38.7 % (33.0-51.0); Hemoglobin 13.1 g/dL (11.5-16.0); IMMATURE GRAN ABSOLUTE AUTO 0.02 K/mm3 (0.00-0.10); IMMATURE GRAN PERCENT AUTO 0 % (0-1); LYMPHOCYTES PERCENT AUTO 17 % (21-46); MONOCYTES ABSOLUTE AUTO 0.89 K/mm3 (0.16-1.47); MONOCYTES PERCENT AUTO 11 % (4-13); Mean Corpuscular HGB 30.5 pg (26.0-34.0); Mean Corpuscular HGB Conc 33.9 g/dL (31.5-36.5); Mean Corpuscular Volume 90 fL (80-100); NEUTROPHILS ABSOLUTE AUTO 5.57 K/mm3 (1.96-9.15); NEUTROPHILS PERCENT AUTO 71 % (41-73); RDW Coefficient Variation 13.2 % (11.7-14.2); RDW Standard Deviation 43.5 fL (35.1-46.3); Red Blood Cell Count 4.29 M/mm3 (3.80-5.20); White Blood Cell Count 7.86 K/mm3 (4.00-11.30)
[2021-03-09 22:45] LABS: Mean Platelet Volume 10.6 fL (9.1-12.4); Platelet Count 249 K/mm3 (150-400)
[2021-03-09 22:59] LABS: Alanine Aminotransfer (ALT/SGP 14 U/L (12-78); Albumin, Blood 3.5 g/dL (3.4-5.0); Albumin/Globulin Ratio 1.1 (0.8-1.8); Alk Phos 116 U/L (50-136); Anion Gap 10 mmol/L (6-16); Aspartate Aminotrans (AST/SGOT 18 U/L (12-37); Bilirubin, Total 0.6 mg/dL (0.1-1.0); Blood Urea Nitrogen 9 mg/dL (8-24); Bun/Creatinine Ratio 10.6 (12.0-20.0); CO2, Blood 24 mmol/L (21-32); Calcium, Blood 9.1 mg/dL (8.5-10.1); Chloride, Blood 105 mmol/L (98-108); Creatinine, Blood 0.85 mg/dL (0.40-1.00); Globulin, Blood 3.1 g/dL (2.2-4.0); Glomerular Filtration Rate >60 (60-); Glucose, Blood 89 mg/dL (70-99); Magnesium, Blood 1.9 mg/dL (1.6-2.4); Potassium, Blood 3.2 mmol/L (3.5-5.5); Sodium, Blood 139 mmol/L (136-145); Total Protein, Blood 6.6 g/dL (6.4-8.2)
== END 2021-03-09 23:35 | disposition home or self-care (01) ==
LOC: ER 20:46
PROVIDERS: Emergency Medicine
DX: E87.6 Hypokalemia (principal); R11.2 Nausea with vomiting, unspecified; I10 Essential (primary) hypertension; Z79.899 Other long term (current) drug therapy; Z88.5 Allergy status to narcotic agent; Z88.4 Allergy status to anesthetic agent
CPT/HCPCS: 36415; 80053; 83735; 85025; 93005; 93010; 96374; 99284-25; J1790; J3010; J7030

== ENCOUNTER 2021-05-11 13:18 | Day surgery (SDC) | payer MEDICARE ==
[~2021-05-11] VITALS: Ht 152.4 cm; Wt 108.8 kg
[~2021-05-11 13:18] MED LIST changes: +ALPR.5 PO; +CYMBALTA60 M1 PO; +FERROUS SULFAT325 M3 PO; +FLUDROCORTISON0.1 M1 PO; +MIDODRINE HCL10 M2 PO; +Ondansetron Odt8 MG MM; +ROPINIROLE HCL4 M1 PO; +TEMA7.5 PO; +Tambocor100 MG PO
== END 2021-05-11 15:44 | disposition home or self-care (01) ==
LOC: ORSCSDS 13:18
PROVIDERS: Internal Medicine Gastroenterology
PROC: 0DBE8ZX Excision of Large Intestine, Via Natural or Artificial Opening Endoscopic, Diagnostic (ICD-10-PCS; principal; 2021-05-11 14:30)
PROC: 0DBM8ZX Excision of Descending Colon, Via Natural or Artificial Opening Endoscopic, Diagnostic (ICD-10-PCS; principal; 2021-05-11 14:30)
PROC: 0DB78ZX Excision of Stomach, Pylorus, Via Natural or Artificial Opening Endoscopic, Diagnostic (ICD-10-PCS; principal; 2021-05-11 14:30)
DX: R63.4 Abnormal weight loss (principal); R11.2 Nausea with vomiting, unspecified; D12.4 Benign neoplasm of descending colon; R19.4 Change in bowel habit; Z15.09 Genetic susceptibility to other malignant neoplasm; K20.90 Esophagitis, unspecified without bleeding; K44.9 Diaphragmatic hernia without obstruction or gangrene; K29.70 Gastritis, unspecified, without bleeding; K63.89 Other specified diseases of intestine; K64.1 Second degree hemorrhoids; I10 Essential (primary) hypertension; I48.91 Unspecified atrial fibrillation; F17.210 Nicotine dependence, cigarettes, uncomplicated; F41.8 Other specified anxiety disorders; Z79.899 Other long term (current) drug therapy
CPT/HCPCS: 88305; 88342; J2250; J2704

== ENCOUNTER → 2021-05-15 | Outpatient (CLI) | payer MEDICARE ==
[2021-05-15 10:51] LABS: BASOPHILS ABSOLUTE AUTO 0.04 K/mm3 (0.00-0.23); BASOPHILS PERCENT AUTO 1 % (0-2); EOSINOPHILS ABSOLUTE AUTO 0.16 K/mm3 (0.00-0.68); EOSINOPHILS PERCENT AUTO 3 % (0-6); Hematocrit 38.3 % (33.0-51.0); Hemoglobin 12.5 g/dL (11.5-16.0); IMMATURE GRAN ABSOLUTE AUTO 0.02 K/mm3 (0.00-0.10); IMMATURE GRAN PERCENT AUTO 0 % (0-1); LYMPHOCYTES ABSOLUTE AUTO 1.27 K/mm3 (0.84-5.20); LYMPHOCYTES PERCENT AUTO 20 % (21-46); MONOCYTES ABSOLUTE AUTO 0.57 K/mm3 (0.16-1.47); MONOCYTES PERCENT AUTO 9 % (4-13); Mean Corpuscular HGB 31.3 pg (26.0-34.0); Mean Corpuscular HGB Conc 32.6 g/dL (31.5-36.5); Mean Corpuscular Volume 96 fL (80-100); Mean Platelet Volume 11.3 fL (9.1-12.4); NEUTROPHILS ABSOLUTE AUTO 4.34 K/mm3 (1.96-9.15); NEUTROPHILS PERCENT AUTO 68 % (41-73); Platelet Count 181 K/mm3 (150-400); RDW Coefficient Variation 14.3 % (11.7-14.2); RDW Standard Deviation 50.5 fL (35.1-46.3); Red Blood Cell Count 3.99 M/mm3 (3.80-5.20)
[2021-05-15 13:20] LABS: Anion Gap 3 mmol/L (6-16); Blood Urea Nitrogen 16 mg/dL (8-24); CO2, Blood 26 mmol/L (21-32); Calcium, Blood 9.3 mg/dL (8.5-10.1); Chloride, Blood 111 mmol/L (98-108); Creatinine, Blood 0.76 mg/dL (0.40-1.00); Glomerular Filtration Rate >60 (60-); Glucose, Blood 81 mg/dL (70-99); Potassium, Blood 3.6 mmol/L (3.5-5.5); Sodium, Blood 140 mmol/L (136-145)
== END | disposition home or self-care (01) ==
LOC: LAB SHORT 10:01 → LAB 10:01
PROVIDERS: Orthopaedic Surgery
DX: Z01.812 Encounter for preprocedural laboratory examination (principal); Z01.818 Encounter for other preprocedural examination; M17.11 Unilateral primary osteoarthritis, right knee
CPT/HCPCS: 36415; 80048; 85025

== ENCOUNTER 2021-07-03 08:01 | Emergency (ER) | payer MEDICARE ==
[~2021-07-03] VITALS: Ht 152.4 cm; Wt 46.7 kg
[2021-07-03 08:53] LABS: BASOPHILS ABSOLUTE AUTO 0.05 K/mm3 (0.00-0.23); BASOPHILS PERCENT AUTO 0 % (0-2); EOSINOPHILS ABSOLUTE AUTO 0.01 K/mm3 (0.00-0.68); EOSINOPHILS PERCENT AUTO 0 % (0-6); Hematocrit 45.9 % (33.0-51.0); Hemoglobin 15.1 g/dL (11.5-16.0); IMMATURE GRAN ABSOLUTE AUTO 0.06 K/mm3 (0.00-0.10); IMMATURE GRAN PERCENT AUTO 0 % (0-1); LYMPHOCYTES ABSOLUTE AUTO 0.67 K/mm3 (0.84-5.20); LYMPHOCYTES PERCENT AUTO 4 % (21-46); MONOCYTES ABSOLUTE AUTO 0.42 K/mm3 (0.16-1.47); MONOCYTES PERCENT AUTO 3 % (4-13); Mean Corpuscular HGB 30.9 pg (26.0-34.0); Mean Corpuscular HGB Conc 32.9 g/dL (31.5-36.5); Mean Corpuscular Volume 94 fL (80-100); Mean Platelet Volume 11.3 fL (9.1-12.4); NEUTROPHILS ABSOLUTE AUTO 13.99 K/mm3 (1.96-9.15); NEUTROPHILS PERCENT AUTO 92 % (41-73); Platelet Count 242 K/mm3 (150-400); RDW Coefficient Variation 13.1 % (11.7-14.2); RDW Standard Deviation 45.2 fL (35.1-46.3); Red Blood Cell Count 4.88 M/mm3 (3.80-5.20)
[2021-07-03] MEDS ORDERED: NORTHERA200 MG PO (09:01)
[2021-07-03 09:13] LABS: Alanine Aminotransfer (ALT/SGP 30 U/L (12-78); Albumin, Blood 4.2 g/dL (3.4-5.0); Albumin/Globulin Ratio 1.2 (0.8-1.8); Alk Phos 115 U/L (50-136); Anion Gap 7 mmol/L (6-16); Aspartate Aminotrans (AST/SGOT 35 U/L (12-37); Bilirubin, Total 0.5 mg/dL (0.1-1.0); Blood Urea Nitrogen 22 mg/dL (8-24); Bun/Creatinine Ratio 35.1 (12.0-20.0); CO2, Blood 26 mmol/L (21-32); Calcium, Blood 9.9 mg/dL (8.5-10.1); Chloride, Blood 107 mmol/L (98-108); Creatinine, Blood 0.63 mg/dL (0.40-1.00); Globulin, Blood 3.5 g/dL (2.2-4.0); Glomerular Filtration Rate >60 (60-); Glucose, Blood 173 mg/dL (70-99); Potassium, Blood 4.1 mmol/L (3.5-5.5); Sodium, Blood 140 mmol/L (136-145); Total Protein, Blood 7.7 g/dL (6.4-8.2); Troponin I <0.015 ng/mL (0.000-0.040)
[2021-07-03] MEDS ORDERED: Ondansetron Odt8 MG MM (12:14)
== END 2021-07-03 12:35 | disposition home or self-care (01) ==
LOC: ER 08:01
PROVIDERS: Emergency Medicine
DX: K52.9 Noninfective gastroenteritis and colitis, unspecified (principal); D72.829 Elevated white blood cell count, unspecified; I10 Essential (primary) hypertension; Z88.5 Allergy status to narcotic agent
CPT/HCPCS: 36415; 74177; 80053; 83690; 83735; 84484; 85025; 93005; 93010; 96374-59; 99284-25; J2060; J7120; Q9967

== ENCOUNTER → 2021-07-18 | Outpatient (CLI) | payer MEDICARE ==
[~2021-07-18] MED LIST changes: +NORTHERA200 MG PO
== END ==
LOC: LAB SHORT 15:05 → LAB 15:05
DX: D48.5 Neoplasm of uncertain behavior of skin (principal); L57.0 Actinic keratosis; Z88.5 Allergy status to narcotic agent; Z88.6 Allergy status to analgesic agent
CPT/HCPCS: 88305

== ENCOUNTER 2021-09-06 21:08 | Emergency (ER) | payer MEDICARE ==
[~2021-09-06] VITALS: Ht 152.4 cm; Wt 45.4 kg
[2021-09-06 21:29] LABS: BASOPHILS ABSOLUTE AUTO 0.02 K/mm3 (0.00-0.23); BASOPHILS PERCENT AUTO 0 % (0-2); EOSINOPHILS ABSOLUTE AUTO 0.08 K/mm3 (0.00-0.68); EOSINOPHILS PERCENT AUTO 1 % (0-6); Hematocrit 45.6 % (33.0-51.0); Hemoglobin 14.9 g/dL (11.5-16.0); IMMATURE GRAN ABSOLUTE AUTO 0.04 K/mm3 (0.00-0.10); IMMATURE GRAN PERCENT AUTO 0 % (0-1); LYMPHOCYTES ABSOLUTE AUTO 1.54 K/mm3 (0.84-5.20); LYMPHOCYTES PERCENT AUTO 16 % (21-46); MONOCYTES PERCENT AUTO 6 % (4-13); Mean Corpuscular HGB 31.4 pg (26.0-34.0); Mean Corpuscular HGB Conc 32.7 g/dL (31.5-36.5); Mean Corpuscular Volume 96 fL (80-100); NEUTROPHILS ABSOLUTE AUTO 7.28 K/mm3 (1.96-9.15); NEUTROPHILS PERCENT AUTO 76 % (41-73); Platelet Count 165 K/mm3 (150-400); RDW Standard Deviation 46.8 fL (35.1-46.3); Red Blood Cell Count 4.75 M/mm3 (3.80-5.20); White Blood Cell Count 9.56 K/mm3 (4.00-11.30)
[2021-09-06 21:45] LABS: Alanine Aminotransfer (ALT/SGP 74 U/L (12-78); Albumin, Blood 3.7 g/dL (3.4-5.0); Alk Phos 140 U/L (50-136); Anion Gap 5 mmol/L (6-16); Aspartate Aminotrans (AST/SGOT 53 U/L (12-37); Bilirubin, Total 0.5 mg/dL (0.1-1.0); Blood Urea Nitrogen 15 mg/dL (8-24); Bun/Creatinine Ratio 17.8 (12.0-20.0); CO2, Blood 28 mmol/L (21-32); Calcium, Blood 9.7 mg/dL (8.5-10.1); Chloride, Blood 108 mmol/L (98-108); Creatinine, Blood 0.84 mg/dL (0.40-1.00); Globulin, Blood 3.6 g/dL (2.2-4.0); Glomerular Filtration Rate >60 (60-); Glucose, Blood 105 mg/dL (70-99); Potassium, Blood 4.1 mmol/L (3.5-5.5); Sodium, Blood 141 mmol/L (136-145); Total Protein, Blood 7.3 g/dL (6.4-8.2)
[2021-09-06 22:25] LABS: Source, Urine Clean Catch
[2021-09-06 22:29] LABS: Bilirubin, Urine Neg (Neg); Blood, Urine Neg (Neg); Glucose Qualitative, Urine Neg (Neg); Ketones, Urine 2+ (Neg); Leukocyte Esterase, Urine Neg (Neg); Nitrite, Urine Neg (Neg); Protein, Urine Neg (Neg); Specific Gravity, Urine 1.015 (1.003-1.022); Urobilinogen, Urine NORM (Normal); pH, Urine 6.5 (5.0-8.0)
[2021-09-06 23:00] LABS: Appearance, Urine Clear (Clear); Color, Urine Yellow (P-Yellow)
== END 2021-09-07 00:01 | disposition home or self-care (01) ==
LOC: ER 21:08
PROVIDERS: Emergency Medicine
DX: R10.9 Unspecified abdominal pain (principal); G25.81 Restless legs syndrome; I10 Essential (primary) hypertension; I48.91 Unspecified atrial fibrillation; Z88.8 Allergy status to other drugs, medicaments and biological substances; Z88.5 Allergy status to narcotic agent; Z79.899 Other long term (current) drug therapy
CPT/HCPCS: 36415; 74177; 80053; 81003; 85025; 93005; 93010; 96374; 96375; 99284-25; A9270; J0780; J2405; J3010; J7030; Q9967

== ENCOUNTER 2021-10-11 06:21 | Day surgery (SDC) | payer MEDICARE ==
[~2021-10-11] VITALS: Ht 152.4 cm; Wt 47.8 kg
--- NOTE | 2021-10-11 07:24 | NUR ---
Ambulatory in Day Surgery History, Chart, Medications and Allergies reviewed before start of procedure. Pre-Op teaching done. Pt verbalizes understanding. Lungs clear T/O to Auscultation.
--- NOTE | 2021-10-11 13:19 | NUR ---
PT ARRIVED TO THE ROOM AT 1145. SHE IS DROWSY AND MOANING IN PAIN. SHE AWAKENS AND ORIENTS WHEN SPOKEN TO. TORADOL GIVEN TO MANAGE PAIN. PT BOOSTED UP IN BED. VSS. WILL CONTINUE TO MONITOR.
--- NOTE | 2021-10-11 18:28 | NUR ---
SHIFT SUMMARY PT IS POD#0 FROM R TKA WITH DR. JUDGE. PAIN HAS BEEN DIFFICULT TO MANAGE R/T MEDICATION ALLERGIES AND SOFT BLOOD PRESSURES. OVERALL NORCO APPEARS TO BE KEEPING PAIN AT A TOLERABLE LEVEL. PT HAS BEEN ABLE TO TOLERATE PO SINCE SURGERY. SHE WAS ABLE TO WORK WITH THERAPY ALTHOUGH SHE DID HAVE ORTHOSTATIC HYPOTENSION. [place] CATH IN PLACE. VSS. WILL MONITOR UNTIL REPORT TO KINGSLEY ELIZONDO.
--- NOTE | 2021-10-12 03:52 | NUR ---
PT TOLERATING PO AND IV PAIN MEDS. VERB NOT TRUE ALLERGIES.STATES SIDE EFFECTS ONLY.DENIES ANY ISSUES WITH CURRENT MEDS.
[2021-10-12 05:28] LABS: BASOPHILS ABSOLUTE AUTO 0.02 K/mm3 (0.00-0.23); BASOPHILS PERCENT AUTO 0 % (0-2); EOSINOPHILS ABSOLUTE AUTO 0.02 K/mm3 (0.00-0.68); EOSINOPHILS PERCENT AUTO 0 % (0-6); Hematocrit 37.2 % (33.0-51.0); Hemoglobin 11.7 g/dL (11.5-16.0); IMMATURE GRAN ABSOLUTE AUTO 0.06 K/mm3 (0.00-0.10); IMMATURE GRAN PERCENT AUTO 0 % (0-1); LYMPHOCYTES ABSOLUTE AUTO 0.82 K/mm3 (0.84-5.20); LYMPHOCYTES PERCENT AUTO 5 % (21-46); MONOCYTES ABSOLUTE AUTO 0.87 K/mm3 (0.16-1.47); MONOCYTES PERCENT AUTO 6 % (4-13); Mean Corpuscular HGB 30.9 pg (26.0-34.0); Mean Corpuscular HGB Conc 31.5 g/dL (31.5-36.5); Mean Corpuscular Volume 98 fL (80-100); Mean Platelet Volume 12.2 fL (9.1-12.4); NEUTROPHILS ABSOLUTE AUTO 14.01 K/mm3 (1.96-9.15); NEUTROPHILS PERCENT AUTO 89 % (41-73); Platelet Count 187 K/mm3 (150-400); RDW Coefficient Variation 13.1 % (11.7-14.2); RDW Standard Deviation 47.7 fL (35.1-46.3); Red Blood Cell Count 3.79 M/mm3 (3.80-5.20)
[2021-10-12 06:16] LABS: Bun/Creatinine Ratio 19.8 (12.0-20.0); Calcium, Blood 8.6 mg/dL (8.5-10.1); Creatinine, Blood 1.06 mg/dL (0.40-1.00); Potassium, Blood 4.3 mmol/L (3.5-5.5)
--- NOTE | 2021-10-12 07:38 | NUR ---
SUMMARY PT REPORTING NORCO INEFFECTIVE THIS AM.TORADOL DCD DUE TO ABNORMAL LABS THIS AM AND DISCUSSION LAST NIGHT WITH PT. HELD THIS AM AFTER DISCUSSION WITH PT. PT FEELS DILAUDID MOS EFFECTIVE, BUT IV ROUTE DOES NT LAST FULL 4 HRS. PT REQUESTING PO DILAUDID WHICH WOULD LAST LONGER AND HELP ENABLE HER TO WORK WITH PT MORE EFFECTIVELY.
[2021-10-12] MEDS ORDERED: ROPINIROLE HCL2 M1 (08:09)
[2021-10-12] MEDS ORDERED: Aspir 8181 MG PO (10:45)
[2021-10-12] MEDS ORDERED: HYDR1TAB94 PO (10:46)
[2021-10-12] MEDS ORDERED: HYDMOR2 PO (10:47)
--- NOTE | 2021-10-12 13:20 | NUR ---
DISCHARGE SUMMARY PT POD #1 FOR R TOTAL KNEE. A/O X4 AND COOPERATIVE WITH CARE. MICHEL WRAP DRESSING IN PLACE AND CDI WITH POLAR PACK. WORKED WITH PHYSICAL THERAPY AND CLEARED TO GO HOME. CHRONIC SCIATICA PAIN. MEDICATIONS CHANGED FROM NORCO TO DILAUDID FOR BETTER PAIN CONTROL. PT EXPERIENCING PAIN AND NAUSEA PRIOR TO LEAVING BUT REFUSED ALL MEDICATIONS. DC'D HOME WITH .
== END 2021-10-12 13:05 | disposition home or self-care (01) ==
LOC: ORSCMMR 06:21 → ORD 08:30 → ORSCMMR 08:30 → ORD 10:30 → SURS 11:45 → ORSCMMR 10-12 13:05
PROVIDERS: Orthopaedic Surgery
PROC: 8E0Y0CZ Robotic Assisted Procedure of Lower Extremity, Open Approach (ICD-10-PCS; principal; 2021-10-11 08:30)
PROC: 0SRC0JA Replacement of Right Knee Joint with Synthetic Substitute, Uncemented, Open Approach (ICD-10-PCS; principal; 2021-10-11 08:30)
DX: M17.11 Unilateral primary osteoarthritis, right knee (principal); I10 Essential (primary) hypertension; Z87.891 Personal history of nicotine dependence; Z79.899 Other long term (current) drug therapy; E05.90 Thyrotoxicosis, unspecified without thyrotoxic crisis or storm; N18.9 Chronic kidney disease, unspecified
CPT/HCPCS: 27447; S2900; 36415; 73560-RT; 80048; 85025; 97110; 97110-CQ; 97116; 97116-CQ; 97162; 97530-CQ; A9270; C1776; J0171; J0690; J0735; J1100; J1170; J1885; J2250; J2370; J2405; J2795; J3010; J7120

== ENCOUNTER 2022-03-28 18:40 | Emergency (ER) | payer MEDICARE ==
[~2022-03-28] VITALS: Ht 157.5 cm; Wt 49.9 kg
[~2022-03-28 18:40] MED LIST changes: +AMOCLA875 PO; +Aspir 8181 MG PO; +HYDR1TAB94 PO; +Norco 5-325 Ta1 EACH PO; +ONDA4ODT MM; +ROPINIROLE HCL2 M1
[2022-03-28 21:27] LABS: BASOPHILS ABSOLUTE AUTO 0.02 K/mm3 (0.00-0.23); BASOPHILS PERCENT AUTO 0 % (0-2); EOSINOPHILS PERCENT AUTO 0 % (0-6); Hematocrit 38.7 % (33.0-51.0); Hemoglobin 13.3 g/dL (11.5-16.0); IMMATURE GRAN ABSOLUTE AUTO 0.03 K/mm3 (0.00-0.10); IMMATURE GRAN PERCENT AUTO 0 % (0-1); LYMPHOCYTES ABSOLUTE AUTO 1.21 K/mm3 (0.84-5.20); LYMPHOCYTES PERCENT AUTO 14 % (21-46); MONOCYTES ABSOLUTE AUTO 0.59 K/mm3 (0.16-1.47); MONOCYTES PERCENT AUTO 7 % (4-13); Mean Corpuscular HGB 31.4 pg (26.0-34.0); Mean Corpuscular HGB Conc 34.4 g/dL (31.5-36.5); Mean Corpuscular Volume 92 fL (80-100); NEUTROPHILS PERCENT AUTO 78 % (41-73); Platelet Count 247 K/mm3 (150-400); RDW Coefficient Variation 12.9 % (11.7-14.2); RDW Standard Deviation 43.6 fL (35.1-46.3); Red Blood Cell Count 4.23 M/mm3 (3.80-5.20); White Blood Cell Count 8.45 K/mm3 (4.00-11.30)
[2022-03-28 21:47] LABS: Alanine Aminotransfer (ALT/SGP 18 U/L (12-78); Albumin, Blood 3.7 g/dL (3.4-5.0); Albumin/Globulin Ratio 1.4 (0.8-1.8); Alk Phos 99 U/L (50-136); Anion Gap 10 mmol/L (6-16); Aspartate Aminotrans (AST/SGOT 25 U/L (12-37); Bilirubin, Total 0.9 mg/dL (0.1-1.0); Blood Urea Nitrogen 13 mg/dL (8-24); Bun/Creatinine Ratio 19.6 (12.0-20.0); CO2, Blood 25 mmol/L (21-32); Calcium, Blood 9.1 mg/dL (8.5-10.1); Chloride, Blood 102 mmol/L (98-108); Creatinine, Blood 0.66 mg/dL (0.40-1.00); Globulin, Blood 2.6 g/dL (2.2-4.0); Glomerular Filtration Rate >60 (60-); Glucose, Blood 88 mg/dL (70-99); Sodium, Blood 137 mmol/L (136-145); Total Protein, Blood 6.3 g/dL (6.4-8.2)
[2022-03-28 21:56] LABS: Free Thyroxine 1.03 ng/dL (0.70-1.60); Potassium, Blood 3.4 mmol/L (3.5-5.5); Thyroid Stimulating Hormone 0.32 uIU/mL (0.360-4.800)
[2022-03-29 01:25] LABS: Source, Urine Straight Cath
[2022-03-29 01:27] LABS: Bilirubin, Urine Neg (Neg); Blood, Urine 3+ (Neg); Glucose Qualitative, Urine Neg (Neg); Ketones, Urine 4+ (Neg); Leukocyte Esterase, Urine Neg (Neg); Nitrite, Urine Neg (Neg); Protein, Urine 2+ (Neg); Specific Gravity, Urine 1.015 (1.003-1.022); Urobilinogen, Urine 1+ (Normal)
[2022-03-29 01:36] LABS: Appearance, Urine Clear (Clear); Color, Urine Yellow (P-Yellow)
[2022-03-29 01:38] LABS: Bacteria Not Seen /hpf; Red Blood Cells, Urine Rare /hpf (0-2); Squamous Epithelial Cells Not Seen /hpf (Few); White Blood Cells, Urine Not Seen /hpf (0-5)
== END 2022-03-29 04:19 | disposition home or self-care (01) ==
LOC: ER 18:40
PROVIDERS: Emergency Medicine
DX: R11.2 Nausea with vomiting, unspecified (principal); R41.0 Disorientation, unspecified; R10.9 Unspecified abdominal pain; I10 Essential (primary) hypertension; Z88.5 Allergy status to narcotic agent; Z79.82 Long term (current) use of aspirin; Z79.899 Other long term (current) drug therapy
CPT/HCPCS: 36415; 70450; 74177; 76705; 80053; 81001; 82140; 82947; 83690; 84439; 84443; 85025; 96374; 99284-25; A9270; J2765; Q9967

== ENCOUNTER → 2022-04-01 | Outpatient (CLI) | payer MEDICARE ==
[2022-04-01 09:07] LABS: BASOPHILS ABSOLUTE AUTO 0.02 K/mm3 (0.00-0.23); BASOPHILS PERCENT AUTO 0 % (0-2); EOSINOPHILS ABSOLUTE AUTO 0.03 K/mm3 (0.00-0.68); EOSINOPHILS PERCENT AUTO 0 % (0-6); Hematocrit 41.9 % (33.0-51.0); Hemoglobin 14.6 g/dL (11.5-16.0); IMMATURE GRAN ABSOLUTE AUTO 0.03 K/mm3 (0.00-0.10); IMMATURE GRAN PERCENT AUTO 0 % (0-1); LYMPHOCYTES ABSOLUTE AUTO 1.42 K/mm3 (0.84-5.20); LYMPHOCYTES PERCENT AUTO 16 % (21-46); MONOCYTES ABSOLUTE AUTO 0.65 K/mm3 (0.16-1.47); MONOCYTES PERCENT AUTO 7 % (4-13); Mean Corpuscular HGB 31.8 pg (26.0-34.0); Mean Corpuscular HGB Conc 34.8 g/dL (31.5-36.5); Mean Corpuscular Volume 91 fL (80-100); Mean Platelet Volume 10.1 fL (9.1-12.4); NEUTROPHILS PERCENT AUTO 76 % (41-73); Platelet Count 286 K/mm3 (150-400); RDW Coefficient Variation 12.7 % (11.7-14.2); Red Blood Cell Count 4.59 M/mm3 (3.80-5.20); White Blood Cell Count 8.75 K/mm3 (4.00-11.30)
[2022-04-01 09:19] LABS: Albumin, Blood 3.5 g/dL (3.4-5.0); Albumin/Globulin Ratio 1.3 (0.8-1.8); Bilirubin, Total 0.8 mg/dL (0.1-1.0); Bun/Creatinine Ratio 7.5 (12.0-20.0); Creatinine, Blood 0.93 mg/dL (0.40-1.00); Globulin, Blood 2.6 g/dL (2.2-4.0); Potassium, Blood 3.1 mmol/L (3.5-5.5); Total Protein, Blood 6.1 g/dL (6.4-8.2)
== END | disposition home or self-care (01) ==
LOC: LAB 09:02 → LAB SHORT 09:02
PROVIDERS: Family Medicine
DX: I95.9 Hypotension, unspecified (principal)
CPT/HCPCS: 80053; 83605; 85025

== ENCOUNTER 2022-06-02 11:29 | Emergency (ER) | payer MEDICARE ==
[~2022-06-02] VITALS: Ht 152.4 cm; Wt 49.9 kg
[2022-06-02 12:03] LABS: Base Excess Venous 2.1 mmol/L; Bicarbonate Venous 25.5 mmol/L (24.0-30.0); PCO2 Venous 47.7 mmHg (38-42); pH Blood Venous 7.37 (7.34-7.37)
[2022-06-02 12:18] LABS: BASOPHILS ABSOLUTE AUTO 0.02 K/mm3 (0.00-0.23); BASOPHILS PERCENT AUTO 0 % (0-2); EOSINOPHILS ABSOLUTE AUTO 0.05 K/mm3 (0.00-0.68); EOSINOPHILS PERCENT AUTO 1 % (0-6); Hematocrit 42.7 % (33.0-51.0); Hemoglobin 14.7 g/dL (11.5-16.0); IMMATURE GRAN ABSOLUTE AUTO 0.02 K/mm3 (0.00-0.10); IMMATURE GRAN PERCENT AUTO 0 % (0-1); LYMPHOCYTES ABSOLUTE AUTO 1.12 K/mm3 (0.84-5.20); LYMPHOCYTES PERCENT AUTO 15 % (21-46); MONOCYTES ABSOLUTE AUTO 0.37 K/mm3 (0.16-1.47); MONOCYTES PERCENT AUTO 5 % (4-13); Mean Corpuscular HGB 30.9 pg (26.0-34.0); Mean Corpuscular HGB Conc 34.4 g/dL (31.5-36.5); Mean Corpuscular Volume 90 fL (80-100); Mean Platelet Volume 10.5 fL (9.1-12.4); NEUTROPHILS ABSOLUTE AUTO 6.11 K/mm3 (1.96-9.15); NEUTROPHILS PERCENT AUTO 79 % (41-73); Platelet Count 263 K/mm3 (150-400); RDW Coefficient Variation 12.3 % (11.7-14.2); RDW Standard Deviation 40.8 fL (35.1-46.3); Red Blood Cell Count 4.76 M/mm3 (3.80-5.20); White Blood Cell Count 7.69 K/mm3 (4.00-11.30)
[2022-06-02 12:30] LABS: Source, Urine Straight Cath
[2022-06-02 12:35] LABS: Appearance, Urine Clear (Clear); Bilirubin, Urine Neg (Neg); Blood, Urine 1+ (Neg); Color, Urine Yellow (P-Yellow); Glucose Qualitative, Urine Neg (Neg); Ketones, Urine 3+ (Neg); Leukocyte Esterase, Urine Neg (Neg); Nitrite, Urine Neg (Neg); Protein, Urine 2+ (Neg); Urobilinogen, Urine NORM (Normal)
[2022-06-02 12:35] LABS: Influenza A, PCR NEGATIVE (NEGATIVE); Influenza B, PCR NEGATIVE (NEGATIVE); Resp Syncytial Virus, PCR NEGATIVE (NEGATIVE); SARS-Cov-2 (COVID-19) PCR, MMC NEGATIVE (NEGATIVE)
[2022-06-02 12:39] LABS: Albumin/Globulin Ratio 1.3 (0.8-1.8); Bilirubin, Direct 0.1 mg/dL (0.0-0.3); Bilirubin, Total 0.8 mg/dL (0.1-1.0); Bun/Creatinine Ratio 19.9 (12.0-20.0); Creatinine, Blood 0.81 mg/dL (0.40-1.00); Magnesium, Blood 2.2 mg/dL (1.6-2.4); Potassium, Blood 3.6 mmol/L (3.5-5.5)
[2022-06-02 12:50] LABS: Bacteria Few /hpf; Mucus Light (0-Heavy); Red Blood Cells, Urine 0-2 /hpf (0-2); Squamous Epithelial Cells Rare /hpf (Few); White Blood Cells, Urine 0-2 /hpf (0-5)
[2022-06-02] MEDS ORDERED: ONDA4ODT MM (15:09)
== END 2022-06-02 16:20 | disposition home or self-care (01) ==
LOC: ER 11:29
PROVIDERS: Student in an Organized Health Care Education/Training Program
DX: G90.9 Disorder of the autonomic nervous system, unspecified (principal); R11.2 Nausea with vomiting, unspecified; M79.7 Fibromyalgia; I48.91 Unspecified atrial fibrillation; Z79.82 Long term (current) use of aspirin; Z79.899 Other long term (current) drug therapy; Z20.822 Contact with and (suspected) exposure to COVID-19
CPT/HCPCS: 0241U; 51702; 70450; 71045; 80053; 81001; 82248; 82803; 82947; 83690; 83735; 83880; 84484; 85025; A9270; J1885; J2765; J3010; J7030

== ENCOUNTER 2022-06-02 19:31 | Observation (INO) | payer MEDICARE ==
[~2022-06-02] VITALS: Ht 152.4 cm; Wt 49.5 kg
--- NOTE | 2022-06-03 00:22 | NUR ---
ARRIVAL TO PCU PT ARRIVED TO PCU 17 AT 2225. PT IS MOANING OUT IN PAIN AND MOVING WEAKLY BACK AND FORTH IN BED RATING PAIN 10/10. ALSO SHE STATED SHE WAS VERY NAUSEAS AND WAS DRY HEAVING. SBP AT THIS TIME WAS 170-180'S. RN CALLED THE RESIDENT REGARDING CONCERNS OF NAUSEA, HTN, AND PAIN. RECIEVED NEW ORDERS FOR ZOFRAN, HYDROLAZINE, AND TOLD TO GIVE PO NORCO ON MED LIST. DURING ASSESSMENT PT IS ORIENTED TO SELF AND SURROUNDSING, NOT TO DATE/TIME/PLACE, BUT WAS ABLE TO GIVE MEDICAL HX. PT ASKED TO SIT AT THE SIDE OF THE BED AND DANGLE HER LEGS; PT BECAME LIMP AND FELL BACK INTO THE BED. PT CONT TO HAVE A PULSE AND WHEN STERNAL RUBBED PT MOANED IN PAIN. PT IS NOW NOT ALERT PREVIOUSLY AND NOT ANSWERING QUESTIONS LIKE BEFORE. HOSPITALIST WAS CALLED, SEE BELOW. SPO2 >98% ON RA. HR SINUS RHYTHM WITH RATE 70-80'S. AFTER GIVING HYDROLAZINE SBP NOW 120-130'S, MAP IN THE 80'S. NAUSEA IS BETTER SINCE GIVING IV ZOFRAN, PT ABLE TO KEEP NORCO DOWN. NS INFUSING AT 200ML/HR. PT NOW APPEARS MORE COMFORTABLE. SEE ADMISSION ASSESSMENT FOR FULL ASSESSMENT. AFTER SYNCOPAL EPISODE, HOSPITALIST WAS CALLED. NEW INSTRUCTIONS WERE PROVIDED TO D/C HYDROLAZINE DUE TO THE PT HX OF SEVER ORTHOSTATIC HYPOTENSION. HE STATED THAT IT IS OK FOR PT SBP TO BE >160 AND TO MONITOR FOR HYPOTENSION.
--- NOTE | 2022-06-03 02:18 | NUR ---
UPDATE PT IS AWAKE AND ALERT WITH OUT MUCH MEMORY ABOUT COMING TO PCU. PT IS ORIENTED X4 AND ABLE TO USE THE CALL LIGHT. SBP CONT TO BE 120-130'S. PT STATED THAT SHE HAS EPISODES OF HYPOTENSION WITH SBP IN THE 70'S AT HOME AND THAN WILL HAVE EPISODES OF HTN WITH HOME BP'S BEING 260/130'S. PT STATES THAT SHE IS FEELING BETTER AT THIS TIME.
[2022-06-03 04:37] LABS: Hematocrit 34.7 % (33.0-51.0); Hemoglobin 11.7 g/dL (11.5-16.0); Mean Corpuscular HGB Conc 33.7 g/dL (31.5-36.5); Mean Corpuscular Volume 92 fL (80-100); Mean Platelet Volume 10.5 fL (9.1-12.4); Platelet Count 196 K/mm3 (150-400); RDW Coefficient Variation 12.4 % (11.7-14.2); RDW Standard Deviation 42.2 fL (35.1-46.3); Red Blood Cell Count 3.77 M/mm3 (3.80-5.20); White Blood Cell Count 7.06 K/mm3 (4.00-11.30)
[2022-06-03 05:17] LABS: Albumin/Globulin Ratio 1.2 (0.8-1.8); Bilirubin, Total 0.6 mg/dL (0.1-1.0); Calcium, Blood 8.5 mg/dL (8.5-10.1); Creatinine, Blood 0.63 mg/dL (0.40-1.00); Globulin, Blood 2.4 g/dL (2.2-4.0); Magnesium, Blood 1.7 mg/dL (1.6-2.4); Potassium, Blood 3.6 mmol/L (3.5-5.5); Total Protein, Blood 5.4 g/dL (6.4-8.2)
--- NOTE | 2022-06-03 05:36 | NUR ---
END OF SHIFT SUMMARY NO ACUTE EVENTS SINCE LAST UPDATE. PT IS NOW A/O X4 AND ABLE TO MAKE HER NEEDS KNOWN. PT PAIN IS MORE CONTROLLED NOW. AFEBRILE. SPO2 >98% ON RA. HR 70-90'S. SBP 120-140'S; ONLY ONE SYNCOPAL EPISODE SINCE ARRIVAL TO PCU. NAUSEA IMPROVED SINCE GIVING ZOFRAN. NS INFUSING AT 200ML/HR. WILL REPORT TO AM RN WHEN AVAILABLE.
[2022-06-03 10:16] LABS: Source, Urine Clean Catch
[2022-06-03 10:25] LABS: Appearance, Urine Clear (Clear); Bilirubin, Urine Neg (Neg); Blood, Urine Neg (Neg); Color, Urine Yellow (P-Yellow); Glucose Qualitative, Urine Neg (Neg); Ketones, Urine 3+ (Neg); Leukocyte Esterase, Urine Neg (Neg); Nitrite, Urine Neg (Neg); Protein, Urine Neg (Neg); Specific Gravity, Urine 1.015 (1.003-1.022); Urobilinogen, Urine NORM (Normal)
[2022-06-03 10:43] LABS: U Amphetamine Screen Not Detected; U Barbituate Screen Not Detected; U Benzodiazapine Screen Not Detected; U Buprenorphine Screen Not Detected; U Cannabinoids Screen DETECTED; U Cocaine Screen Not Detected; U Methadone Screen Not Detected; U Methamphetamine Screen Not Detected; U Opiates Screen DETECTED; U Oxycodone Screen Not Detected; U Phencyclidine Screen Not Detected; U Propoxyphene Screen Not Detected
--- NOTE | 2022-06-03 11:07 | NUR ---
AM NOTE: PATIENT ALERT AND ORIENTED X4. SLEEPY. DENIES HEADACHE/VISION CHANGES. PERRLA. WEARS GLASSES AT HOME. NUMBNESS/TINGLING TO RIGHT LOWER EXTREMITY. PATIENT STATES THAT IS WITHIN HER NORMAL AND SHE HAS BEEN DIAGNOSED WITH L2 STENOSIS AND HAD MULTIPLE BACK AND NECK SURGERIES. SBA WHEN UP TO BS. THIS AM USING BEDPAN DUE TO SYNCOPAL EPISODE LAST NIGHT. PATIENT UNABLE TO VOID ON BEDPAN. DR. GILL AT BEDSIDE WITH THIS RN, AND HELPED PATIENT TO BS. NO SIGNS/SYMPTOMS OF SYNCOPE. PATIENT STILL UNABLE TO VOID ON BSC. BLADDER SCAN AND ORDERS TO STRAIGHT CATH. STRAIGHT CATH X1 THIS AM. ON ROOM AIR SATING ABOVE 94%. LUNGS SOUNDING CLEAR. TELE SHOWING SINUS RHYTHM WITH HR 70'S. DENIES CHEST PAIN/PRESSURE THIS AM BUT STATES SHE CAN GET ANGINA WHEN BP DROPS. PERIPHERAL PULSES STRONG. NO SIGNS OF EDEMA. NS INFUSING AT 150 ML/HR. WORKED WITH PHYSICAL THERAPY WITH SIGNIFICANT DROP IN SBP FROM LAYING TO STANDING. SLIGHTLY SYMPTOMTIC PER PHYSICAL THERAPY WITH SBP IN 90'S. DENIES ABDOMINAL PAIN/NAUSEA AT THIS TIME. EATING SMALL AMOUNTS. STATES SHE HAS RECENTLY LOST 30 POUNDS. SKIN OVERALL C/D/I. SMALL SKIN TEAR TO RIGHT FA. IMPLANTED NERVE STIMULATOR TO BACK LEFT SIDE. WORKING WITH OT AT THIS TIME. CALL LIGHT IN REACH. WILL CONTINUE TO MONITOR.
--- NOTE | 2022-06-03 13:50 | NUR ---
Initial palliative care consult: Mira is a 66 year old lady with a history sleep apnea, autonomic dysfunction, giron syndrome, RLS, fibromyalgia, OA and HTN. She was admitted on 06/02/22 with changes in mental status. She is alert and oriented during our visit. 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. She has been retired for the past 6 years. She had to retire due to her illness. She reports she lives with her . She has no other family in the area. She states that she is on 3 different medications for her illness and currently does not have a neurologist. She has an appointment at the [facility] in [place] next week. She is hopeful that she will be able to make it there to see a neurologist who is familiar with her condition. She reports that her illness has consumed her life. She was diagnosed 7 years ago. She isn't able to get out and do much gardening which she would like to do. She states thats she lives moment to moment and when she feels an episode coming on she lowers herself to the ground so that she doesn't fall. Seeing bright light and inability to hear are her indicators that an episode is starting. She reports she has very little appetite and that she struggles with nausea and vomiting which she attributes to lack of blood flow to her GI tract. She has lost somewhere between 30-50 pounds over about a 3 year period. She admits to feeling down about her chronic condition. She is a DNR and confirms this. She reports that her current POLST is a full code but she no longer wishes for that. Offered to assist her in filling out a new POLST today, she declined. She states that she has the paperwork at home and will do it there. Confirmed that there is a DNR order in the EMR which is consistent with her current wishes. Offered her a snack and ice water which she accepted. PC to continue to follow for advanced care planning prn.
--- NOTE | 2022-06-03 17:43 | NUR ---
SHIFT SUMMARY: NO ACUTE CHANGES. PATIENT REMAINS ALERT AND ORIENTED X4. ABLE TO STAND WITH ONE PERSON ASSIST TO BSC. NO SIGNS AND SYMPTOMS OF DIZZINESS. FEELING DIZZY ONCE WITH PT. ABLE TO TURN AND MOVE SELF IN BED. REMAINS ON ROOM AIR. TELE SHOWING SINUS RHYTHM WITH HR 70-90'S. DENIES CHEST PAIN/PRESSURE AT THIS TIME. DENIES ABDOMINAL PAIN/NAUSEA. EATING VERY SMALL AMOUNTS. ABLE TO VOID IN BSC AFTER STRAIGHT CATH X1 THIS AM. NO BOWEL MOVEMENTS. COMPLAINS OF MILD HEADACHE THIS AFTERNOON. DENIED NEED FOR TYLENOL. HEADACHE RESOLVED WITH DECREASE IN BP. SCP RANGING FROM 99-170'S. PATIENT NOT WANTING TO TAKE SCHEDULED 1700 MIDODRINE YET. MONITORING BP HOURLY. PT AND OT IN TO WORK WITH PATIENT. CALL LIGHT IN REACH. DENIES NEEDS AT THIS TIME. NS INFUSING AT 100 ML/HR. WILL CONTINUE TO MONITOR AND REPORT OFF TO ONCOMING RN.
[2022-06-04 04:27] LABS: BASOPHILS ABSOLUTE AUTO 0.03 K/mm3 (0.00-0.23); BASOPHILS PERCENT AUTO 1 % (0-2); EOSINOPHILS ABSOLUTE AUTO 0.06 K/mm3 (0.00-0.68); EOSINOPHILS PERCENT AUTO 1 % (0-6); Hematocrit 38.7 % (33.0-51.0); Hemoglobin 12.8 g/dL (11.5-16.0); IMMATURE GRAN ABSOLUTE AUTO 0.02 K/mm3 (0.00-0.10); IMMATURE GRAN PERCENT AUTO 0 % (0-1); LYMPHOCYTES ABSOLUTE AUTO 1.21 K/mm3 (0.84-5.20); LYMPHOCYTES PERCENT AUTO 21 % (21-46); MONOCYTES ABSOLUTE AUTO 0.36 K/mm3 (0.16-1.47); MONOCYTES PERCENT AUTO 6 % (4-13); Mean Corpuscular HGB 30.5 pg (26.0-34.0); Mean Corpuscular HGB Conc 33.1 g/dL (31.5-36.5); Mean Corpuscular Volume 92 fL (80-100); Mean Platelet Volume 10.7 fL (9.1-12.4); NEUTROPHILS ABSOLUTE AUTO 4.03 K/mm3 (1.96-9.15); NEUTROPHILS PERCENT AUTO 71 % (41-73); Platelet Count 184 K/mm3 (150-400); RDW Coefficient Variation 12.3 % (11.7-14.2); White Blood Cell Count 5.71 K/mm3 (4.00-11.30)
[2022-06-04 05:02] LABS: Albumin, Blood 3.3 g/dL (3.4-5.0); Anion Gap 10 mmol/L (6-16); Blood Urea Nitrogen 7 mg/dL (8-24); Bun/Creatinine Ratio 11.6 (12.0-20.0); CO2, Blood 22 mmol/L (21-32); Calcium, Blood 8.9 mg/dL (8.5-10.1); Chloride, Blood 102 mmol/L (98-108); Glomerular Filtration Rate 98 (60-); Glucose, Blood 89 mg/dL (70-99); Magnesium, Blood 1.8 mg/dL (1.6-2.4); Phosphorus, Blood 2.3 mg/dL (2.5-4.9); Potassium, Blood 3.1 mmol/L (3.5-5.5); Sodium, Blood 134 mmol/L (136-145)
--- NOTE | 2022-06-04 06:08 | NUR ---
SHIFT SUMMARY PT ALERT AND ORIENTED X4. HR SR 70-80'S. AFEBRILE. ON RA SATS OVER 97%. BP LABILE. NAUSEA T/O THE NIGHT, RELIEF WITH PHENERGEN. PAIN MEDICATED PER EMAR. VOIDED FREQUENTLY W/ BEDSIDE COMMODE X1 SBA. NS RUNNING 100ML/HR. MINMAL PO INTAKE. IN BED SLEEPING WITH CALL ALARM AT SIDE, WILL CONTINUE TO MONITOR UNTIL REPORT GIVEN TO DAYSHIFT RN
--- NOTE | 2022-06-04 08:14 | NUR ---
Orthostatic vital signs taken: lying 126/98, pulse 97. standing 69/55, pulse 114, and symtomatic.
--- NOTE | 2022-06-04 08:53 | NUR ---
IV INFILTRATION NOTED JUST A FEW MINUTES AFTER THE START OF THE MAGNESIUM INFUSION. PT REPORTED TENDERNESS AT THE INSERTION SITE, AND NOTED SWELLING PROXIMAL TO THE AREA, ABOUT 3 CM AREA IN SIZE. STOPPED THE INFUSION.
[2022-06-04] MEDS ORDERED: PROM25 PO (09:18)
--- NOTE | 2022-06-04 09:46 | NUR ---
Call to Dr. Hewitt regarding the infiltrated magnesium rider; asked if it could be given orally. The doctor reviewed the chart and said that it would not be neccessary to give the magnesium IV before discharge. PT will be discharged home with oral medications as prescribed.
--- NOTE | 2022-06-04 10:16 | NUR ---
Discharge orders were reviewed with the patient. She plans on flying to [facility] on Friday for specialized help in treating her condition. IV was dc'd, and telemetry removed. Pt dressed herself and was taken out by wheelchair to waiting private vehicle driven by her .
== END 2022-06-04 10:18 | disposition home or self-care (01) ==
LOC: ER 19:31 → PCU 19:32
PROVIDERS: Family Medicine; Nurse Practitioner Acute Care; ADMIT Internal Medicine
DX: G90.9 Disorder of the autonomic nervous system, unspecified (principal); G92.8 Other toxic encephalopathy; I95.1 Orthostatic hypotension; G25.81 Restless legs syndrome; I48.0 Paroxysmal atrial fibrillation; M79.7 Fibromyalgia; I10 Essential (primary) hypertension; Z66 Do not resuscitate; Z79.82 Long term (current) use of aspirin; Z79.899 Other long term (current) drug therapy; Z20.822 Contact with and (suspected) exposure to COVID-19
CPT/HCPCS: 36415; 51701; 80053; 80069; 81003; 83735; 84443; 84484; 85025; 85027; 93005; 93010; 97110; 97162; 97166; 97535; 99285-25; A9270; G0378; J0360; J1650; J2405; J2550; J3475; J7030

== ENCOUNTER 2022-06-06 17:34 | Emergency (ER) | payer MEDICARE ==
[~2022-06-06] VITALS: Ht 152.4 cm; Wt 45.4 kg
[2022-06-06 18:49] LABS: BASOPHILS ABSOLUTE AUTO 0.02 K/mm3 (0.00-0.23); BASOPHILS PERCENT AUTO 0 % (0-2); EOSINOPHILS ABSOLUTE AUTO 0.08 K/mm3 (0.00-0.68); EOSINOPHILS PERCENT AUTO 1 % (0-6); Hematocrit 40.4 % (33.0-51.0); IMMATURE GRAN ABSOLUTE AUTO 0.02 K/mm3 (0.00-0.10); IMMATURE GRAN PERCENT AUTO 0 % (0-1); LYMPHOCYTES ABSOLUTE AUTO 1.56 K/mm3 (0.84-5.20); LYMPHOCYTES PERCENT AUTO 19 % (21-46); MONOCYTES ABSOLUTE AUTO 0.65 K/mm3 (0.16-1.47); MONOCYTES PERCENT AUTO 8 % (4-13); Mean Corpuscular HGB 30.7 pg (26.0-34.0); Mean Corpuscular HGB Conc 34.7 g/dL (31.5-36.5); Mean Corpuscular Volume 89 fL (80-100); Mean Platelet Volume 10.3 fL (9.1-12.4); NEUTROPHILS ABSOLUTE AUTO 5.79 K/mm3 (1.96-9.15); NEUTROPHILS PERCENT AUTO 71 % (41-73); Platelet Count 253 K/mm3 (150-400); RDW Coefficient Variation 12.3 % (11.7-14.2); RDW Standard Deviation 40.1 fL (35.1-46.3); Red Blood Cell Count 4.56 M/mm3 (3.80-5.20); White Blood Cell Count 8.12 K/mm3 (4.00-11.30)
[2022-06-06 19:34] LABS: Albumin, Blood 3.9 g/dL (3.4-5.0); Albumin/Globulin Ratio 1.6 (0.8-1.8); Bilirubin, Total 0.6 mg/dL (0.1-1.0); Bun/Creatinine Ratio 20.2 (12.0-20.0); Calcium, Blood 9.6 mg/dL (8.5-10.1); Creatinine, Blood 0.94 mg/dL (0.40-1.00); Globulin, Blood 2.5 g/dL (2.2-4.0); Potassium, Blood 3.4 mmol/L (3.5-5.5); Total Protein, Blood 6.4 g/dL (6.4-8.2)
== END 2022-06-06 21:42 | disposition home or self-care (01) ==
LOC: ER 17:34
PROVIDERS: Emergency Medicine
DX: E87.6 Hypokalemia (principal); E86.0 Dehydration; I10 Essential (primary) hypertension; Z96.651 Presence of right artificial knee joint; Z79.899 Other long term (current) drug therapy
CPT/HCPCS: 80053; 85025; 93005; 93010; 96361; 96374; 96375; 99285-25; A9270; J0780; J1200; J2405; J7030

== ENCOUNTER 2022-06-16 02:30 | Emergency (ER) | payer MEDICARE ==
[~2022-06-16] VITALS: Ht 152.4 cm; Wt 46.3 kg
[2022-06-16 05:18] LABS: BASOPHILS PERCENT AUTO 0 % (0-2); EOSINOPHILS PERCENT AUTO 0 % (0-6); Hematocrit 44.8 % (33.0-51.0); IMMATURE GRAN ABSOLUTE AUTO 0.04 K/mm3 (0.00-0.10); IMMATURE GRAN PERCENT AUTO 1 % (0-1); LYMPHOCYTES ABSOLUTE AUTO 0.96 K/mm3 (0.84-5.20); LYMPHOCYTES PERCENT AUTO 14 % (21-46); MONOCYTES ABSOLUTE AUTO 0.43 K/mm3 (0.16-1.47); MONOCYTES PERCENT AUTO 6 % (4-13); Mean Corpuscular HGB 30.6 pg (26.0-34.0); Mean Corpuscular HGB Conc 33.5 g/dL (31.5-36.5); Mean Corpuscular Volume 91 fL (80-100); Mean Platelet Volume 10.3 fL (9.1-12.4); NEUTROPHILS ABSOLUTE AUTO 5.42 K/mm3 (1.96-9.15); NEUTROPHILS PERCENT AUTO 79 % (41-73); Platelet Count 320 K/mm3 (150-400); RDW Coefficient Variation 12.8 % (11.7-14.2); White Blood Cell Count 6.85 K/mm3 (4.00-11.30)
[2022-06-16 05:29] LABS: Alanine Aminotransfer (ALT/SGP 34 U/L (12-78); Albumin/Globulin Ratio 1.2 (0.8-1.8); Alk Phos 96 U/L (50-136); Anion Gap 10 mmol/L (6-16); Aspartate Aminotrans (AST/SGOT 43 U/L (12-37); Bilirubin, Total 0.4 mg/dL (0.1-1.0); Blood Urea Nitrogen 22 mg/dL (8-24); Bun/Creatinine Ratio 21.8 (12.0-20.0); CO2, Blood 27 mmol/L (21-32); Calcium, Blood 9.6 mg/dL (8.5-10.1); Chloride, Blood 99 mmol/L (98-108); Creatinine, Blood 1.01 mg/dL (0.40-1.00); Globulin, Blood 3.4 g/dL (2.2-4.0); Glomerular Filtration Rate 61 (60-); Glucose, Blood 85 mg/dL (70-99); Potassium, Blood 3.7 mmol/L (3.5-5.5); Sodium, Blood 136 mmol/L (136-145); Total Protein, Blood 7.4 g/dL (6.4-8.2)
[2022-06-16 06:09] LABS: Source, Urine Straight Cath
[2022-06-16 06:13] LABS: Appearance, Urine Hazy (Clear); Bilirubin, Urine Neg (Neg); Blood, Urine 2+ (Neg); Color, Urine Yellow (P-Yellow); Glucose Qualitative, Urine Neg (Neg); Ketones, Urine 2+ (Neg); Leukocyte Esterase, Urine Neg (Neg); Nitrite, Urine Neg (Neg); Protein, Urine 2+ (Neg); Specific Gravity, Urine 1.025 (1.003-1.022); Urobilinogen, Urine NORM (Normal)
[2022-06-16 06:42] LABS: Red Blood Cells, Urine 0-2 /hpf (0-2)
[2022-06-16 06:43] LABS: Bacteria Many /hpf; Hyaline Casts 0-2 /lpf (0-2); Squamous Epithelial Cells Rare /hpf (Few)
[2022-06-16 07:04] LABS: Influenza A, PCR NEGATIVE (NEGATIVE); Influenza B, PCR NEGATIVE (NEGATIVE); Resp Syncytial Virus, PCR NEGATIVE (NEGATIVE)
[2022-06-16 08:00] LABS: SARS-Cov-2 (COVID-19) PCR, MMC POSITIVE (NEGATIVE)
[2022-06-16] MEDS ORDERED: PAXLOVID 2X1501 EACH PO (08:31)
[2022-06-16] MEDS ORDERED: ONDA4 PO (08:31)
== END 2022-06-16 10:15 | disposition home or self-care (01) ==
LOC: ER 02:30
PROVIDERS: Emergency Medicine; Student in an Organized Health Care Education/Training Program
DX: U07.1 COVID-19 (principal); N39.0 Urinary tract infection, site not specified; I10 Essential (primary) hypertension
CPT/HCPCS: 0241U; 36415; 71045; 80053; 81001; 83690; 85025; 93005; 93010; A9270; J0696; J2405; J3010; J7030; P9612

== ENCOUNTER 2022-09-09 14:05 | Emergency (ER) | payer MEDICARE ==
[~2022-09-09] VITALS: Ht 149.9 cm; Wt 48.5 kg
[~2022-09-09 14:05] MED LIST changes: +ONDA4 PO; +PAXLOVID 2X1501 EACH PO
[2022-09-09] MEDS ORDERED: Tambocor100 MG PO (14:19)
[2022-09-09] MEDS ORDERED: GABA300 PO (14:20)
[2022-09-09] MEDS ORDERED: HYDPAM100 PO (14:21)
[2022-09-09 14:35] LABS: BASOPHILS ABSOLUTE AUTO 0.04 K/mm3 (0.00-0.23); BASOPHILS PERCENT AUTO 1 % (0-2); EOSINOPHILS ABSOLUTE AUTO 0.22 K/mm3 (0.00-0.68); EOSINOPHILS PERCENT AUTO 3 % (0-6); Hematocrit 45.1 % (33.0-51.0); Hemoglobin 14.6 g/dL (11.5-16.0); IMMATURE GRAN ABSOLUTE AUTO 0.02 K/mm3 (0.00-0.10); IMMATURE GRAN PERCENT AUTO 0 % (0-1); LYMPHOCYTES ABSOLUTE AUTO 2.02 K/mm3 (0.84-5.20); LYMPHOCYTES PERCENT AUTO 27 % (21-46); MONOCYTES ABSOLUTE AUTO 0.62 K/mm3 (0.16-1.47); MONOCYTES PERCENT AUTO 8 % (4-13); Mean Corpuscular HGB 30.2 pg (26.0-34.0); Mean Corpuscular HGB Conc 32.4 g/dL (31.5-36.5); Mean Corpuscular Volume 93 fL (80-100); Mean Platelet Volume 10.7 fL (9.1-12.4); NEUTROPHILS PERCENT AUTO 61 % (41-73); Platelet Count 253 K/mm3 (150-400); RDW Coefficient Variation 12.5 % (11.7-14.2); RDW Standard Deviation 42.9 fL (35.1-46.3); Red Blood Cell Count 4.83 M/mm3 (3.80-5.20); White Blood Cell Count 7.52 K/mm3 (4.00-11.30)
[2022-09-09 14:58] LABS: Albumin, Blood 3.8 g/dL (3.4-5.0); Albumin/Globulin Ratio 1.3 (0.8-1.8); Bilirubin, Total 0.4 mg/dL (0.1-1.0); Bun/Creatinine Ratio 29.2 (12.0-20.0); Calcium, Blood 10.3 mg/dL (8.5-10.1); Creatinine, Blood 0.86 mg/dL (0.40-1.00); Potassium, Blood 4.2 mmol/L (3.5-5.5); Total Protein, Blood 6.8 g/dL (6.4-8.2)
== END 2022-09-09 21:15 | disposition home or self-care (01) ==
LOC: ER 14:05
PROVIDERS: Emergency Medicine
DX: I10 Essential (primary) hypertension (principal); R07.9 Chest pain, unspecified; I48.91 Unspecified atrial fibrillation; Z79.899 Other long term (current) drug therapy
CPT/HCPCS: 36415; 71045; 80053; 84484; 85025; 93005; 93010; 96374; 96375; 99285-25; A9270; J2405; J3010; J7030

== ENCOUNTER 2022-09-14 00:13 | Day surgery (SDC) | payer MEDICARE ==
[~2022-09-14 00:13] MED LIST changes: +HYDPAM100 PO
[2022-09-14] MEDS ORDERED: FLUDROCORTISON0.1 M2 PO (09:30)
[2022-09-14] MEDS ORDERED: TRANSDERM-SCOP1 EA10 TD (09:36)
[2022-09-14] MEDS ORDERED: B-121000 MC4 PO (09:37)
[2022-09-14] MEDS ORDERED: ACYC400 PO (09:39)
== END 2022-09-14 15:50 | disposition home or self-care (01) ==
LOC: ATC 00:13
DX: Z45.2 Encounter for adjustment and management of vascular access device (principal); G90.9 Disorder of the autonomic nervous system, unspecified; I95.9 Hypotension, unspecified; I48.91 Unspecified atrial fibrillation
CPT/HCPCS: 36569; C1751

== ENCOUNTER → 2022-09-18 | Outpatient (CLI) | payer MEDICARE ==
[~2022-09-18] MED LIST changes: +B-121000 MC4 PO; +FLUDROCORTISON0.1 M2 PO; +TRANSDERM-SCOP1 EA10 TD
[2022-09-18 12:45] LABS: Bun/Creatinine Ratio 21.3 (12.0-20.0); Creatinine, Blood 0.89 mg/dL (0.40-1.00)
== END | disposition home or self-care (01) ==
LOC: LAB 10:30 → LAB SHORT 10:30
PROVIDERS: Physician Assistant Medical
DX: I95.1 Orthostatic hypotension (principal); E87.1 Hypo-osmolality and hyponatremia; G90.9 Disorder of the autonomic nervous system, unspecified
CPT/HCPCS: 80048

== ENCOUNTER → 2022-11-22 | Outpatient (CLI) | payer MEDICARE ==
[2022-11-22 15:30] LABS: Bun/Creatinine Ratio 20.5 (12.0-20.0); Calcium, Blood 9.6 mg/dL (8.5-10.1); Creatinine, Blood 0.88 mg/dL (0.40-1.00); Potassium, Blood 3.5 mmol/L (3.5-5.5)
== END ==
LOC: LAB SHORT 14:19
PROVIDERS: Family Medicine
DX: I95.1 Orthostatic hypotension (principal)
CPT/HCPCS: 80048

== ENCOUNTER → 2022-12-07 | Outpatient (CLI) | payer MEDICARE ==
[2022-12-07 14:17] LABS: BASOPHILS ABSOLUTE AUTO 0.03 K/mm3 (0.00-0.23); BASOPHILS PERCENT AUTO 1 % (0-2); EOSINOPHILS ABSOLUTE AUTO 0.09 K/mm3 (0.00-0.68); EOSINOPHILS PERCENT AUTO 2 % (0-6); Hematocrit 35.1 % (33.0-51.0); Hemoglobin 11.6 g/dL (11.5-16.0); IMMATURE GRAN ABSOLUTE AUTO 0.02 K/mm3 (0.00-0.10); IMMATURE GRAN PERCENT AUTO 0 % (0-1); LYMPHOCYTES ABSOLUTE AUTO 1.25 K/mm3 (0.84-5.20); LYMPHOCYTES PERCENT AUTO 20 % (21-46); MONOCYTES ABSOLUTE AUTO 0.42 K/mm3 (0.16-1.47); MONOCYTES PERCENT AUTO 7 % (4-13); Mean Corpuscular HGB 31.2 pg (26.0-34.0); Mean Corpuscular Volume 94 fL (80-100); Mean Platelet Volume 10.2 fL (9.1-12.4); NEUTROPHILS ABSOLUTE AUTO 4.36 K/mm3 (1.96-9.15); NEUTROPHILS PERCENT AUTO 71 % (41-73); Platelet Count 211 K/mm3 (150-400); RDW Coefficient Variation 14.9 % (11.7-14.2); RDW Standard Deviation 51.8 fL (35.1-46.3); Red Blood Cell Count 3.72 M/mm3 (3.80-5.20); White Blood Cell Count 6.17 K/mm3 (4.00-11.30)
[2022-12-07 14:47] LABS: Albumin, Blood 3.8 g/dL (3.4-5.0); Albumin/Globulin Ratio 1.4 (0.8-1.8); Bilirubin, Total 0.6 mg/dL (0.1-1.0); Bun/Creatinine Ratio 20.3 (12.0-20.0); Calcium, Blood 8.9 mg/dL (8.5-10.1); Creatinine, Blood 0.79 mg/dL (0.40-1.00); Globulin, Blood 2.8 g/dL (2.2-4.0); Potassium, Blood 3.8 mmol/L (3.5-5.5); Total Protein, Blood 6.6 g/dL (6.4-8.2)
== END | disposition home or self-care (01) ==
LOC: LAB SHORT 14:14 → LAB 14:14
PROVIDERS: Chiropractor
DX: G90.9 Disorder of the autonomic nervous system, unspecified (principal)
CPT/HCPCS: 80053; 83735; 85025

== ENCOUNTER 2023-05-11 06:12 | Inpatient (IN) | payer MEDICARE ==
[~2023-05-11] VITALS: Ht 149.9 cm; Wt 51.3 kg
[~2023-05-11 06:12] MED LIST changes: +KLOR-CON 1010 ME9 PO; +MIDODRINE HCL 5 MG T; +ROPINIROLE HCL2 M1 PO
[2023-05-11 07:01] LABS: BASOPHILS ABSOLUTE AUTO 0.04 K/mm3 (0.00-0.23); BASOPHILS PERCENT AUTO 0 % (0-2); EOSINOPHILS ABSOLUTE AUTO 0.19 K/mm3 (0.00-0.68); EOSINOPHILS PERCENT AUTO 1 % (0-6); Hematocrit 41.4 % (33.0-51.0); Hemoglobin 13.9 g/dL (11.5-16.0); IMMATURE GRAN ABSOLUTE AUTO 0.07 K/mm3 (0.00-0.10); IMMATURE GRAN PERCENT AUTO 0 % (0-1); LYMPHOCYTES ABSOLUTE AUTO 0.83 K/mm3 (0.84-5.20); LYMPHOCYTES PERCENT AUTO 5 % (21-46); MONOCYTES ABSOLUTE AUTO 1.01 K/mm3 (0.16-1.47); MONOCYTES PERCENT AUTO 6 % (4-13); Mean Corpuscular HGB 31.6 pg (26.0-34.0); Mean Corpuscular HGB Conc 33.6 g/dL (31.5-36.5); Mean Corpuscular Volume 94 fL (80-100); Mean Platelet Volume 10.3 fL (9.1-12.4); NEUTROPHILS ABSOLUTE AUTO 14.32 K/mm3 (1.96-9.15); NEUTROPHILS PERCENT AUTO 87 % (41-73); Platelet Count 249 K/mm3 (150-400); RDW Coefficient Variation 13.2 % (11.7-14.2); RDW Standard Deviation 45.2 fL (35.1-46.3); White Blood Cell Count 16.46 K/mm3 (4.00-11.30)
[2023-05-11 07:05] LABS: Albumin, Blood 3.3 g/dL (3.4-5.0); Albumin/Globulin Ratio 1.2 (0.8-1.8); Bilirubin, Total 0.5 mg/dL (0.1-1.0); Bun/Creatinine Ratio 30.9 (12.0-20.0); Calcium, Blood 8.8 mg/dL (8.5-10.1); Creatinine, Blood 0.81 mg/dL (0.40-1.00); Globulin, Blood 2.8 g/dL (2.2-4.0); Potassium, Blood 2.9 mmol/L (3.5-5.5); Total Protein, Blood 6.1 g/dL (6.4-8.2)
[2023-05-11] MEDS ORDERED: METR500 PO (07:53)
[2023-05-11] MEDS ORDERED: CIPR500 PO (07:53)
[2023-05-11 13:27] VITALS: BP 125/75
--- NOTE | 2023-05-11 14:06 | NUR ---
ARRIVAL TO UNIT PT ARRIVED TO UNIT FROM ER VIA GURNEY, ABLE TO STAND AND TRANSFER TO BED AFTER STANDING ON SCALE. SHE REPORTS PAIN INCREASING ON ARRIVAL MEDICATED PER EMAR. DR. ZHAO IN ROOM FROM GI TO SEE PATIENT. PT ORIENTED X4 REPORTS SOME FORGETFULLNESS R/T RECENT WEAKNESS. PLAN IS FOR PATIENT TO START A CLEAR LIQUID DIET AND TREND H&H EVERY 8 HOURS FOR 3 DRAWS.
[2023-05-11 15:01] LABS: BASOPHILS ABSOLUTE AUTO 0.04 K/mm3 (0.00-0.23); BASOPHILS PERCENT AUTO 0 % (0-2); EOSINOPHILS PERCENT AUTO 2 % (0-6); Hemoglobin 11.6 g/dL (11.5-16.0); IMMATURE GRAN ABSOLUTE AUTO 0.09 K/mm3 (0.00-0.10); IMMATURE GRAN PERCENT AUTO 1 % (0-1); LYMPHOCYTES ABSOLUTE AUTO 1.01 K/mm3 (0.84-5.20); LYMPHOCYTES PERCENT AUTO 8 % (21-46); MONOCYTES ABSOLUTE AUTO 0.71 K/mm3 (0.16-1.47); MONOCYTES PERCENT AUTO 6 % (4-13); Mean Corpuscular HGB 31.3 pg (26.0-34.0); Mean Corpuscular HGB Conc 33.1 g/dL (31.5-36.5); Mean Corpuscular Volume 94 fL (80-100); Mean Platelet Volume 10.2 fL (9.1-12.4); NEUTROPHILS ABSOLUTE AUTO 10.22 K/mm3 (1.96-9.15); NEUTROPHILS PERCENT AUTO 83 % (41-73); Platelet Count 213 K/mm3 (150-400); RDW Coefficient Variation 13.5 % (11.7-14.2); RDW Standard Deviation 46.2 fL (35.1-46.3); Red Blood Cell Count 3.71 M/mm3 (3.80-5.20); White Blood Cell Count 12.27 K/mm3 (4.00-11.30)
[2023-05-11] MEDS ORDERED: MIDO5 PO (15:42)
[2023-05-11] MEDS ORDERED: OXYACE7.5T PO (15:45)
[2023-05-11] MEDS ORDERED: PROLIA60 MG/1 ML SC (15:53)
[2023-05-11] MEDS ORDERED: ONDA4ODT SL (15:54)
[2023-05-11] MEDS ORDERED: VITAMIN D5000 UNIT PO (15:54)
[2023-05-11] MEDS ORDERED: OYSTER SHELL C500 MG PO (15:56)
[2023-05-11 16:03] VITALS: BP 151/94
[2023-05-11 16:04] VITALS: BP 151/94
--- NOTE | 2023-05-11 16:28 | NUR ---
SHIFT SUMMARY NO ACUTE CHANGES SINCE ARRIVAL TO UNIT. PAIN BETTER CONTROLLED NOW SINCE SHE RECIEVED A HOT PACK FOR ABDOMEN. TOLERATING CLEAR LIQUID DIET. PLAN IS FOR NPO AT 0600 IN THE MORNING. AND CONTINUED OBSERVATION FOR BLOOD IN STOOL. PT [id number], CALL APPROPRIATLY.
--- NOTE | 2023-05-11 18:07 | NUR ---
PT REPORTS FEELING A TEARING FEELING INTERNALLY ON THE LLQ AFTER VOIDING, SHE THEN HAD SMALL AMOUNT OF JEANETTE RED BLEEDING. PAIN RESOLVED ONCE PATIENT RESTING IN BED AGAIN. PAIN SHOOTS UP TO 10/10 IMMEDIATLY AFTER.
[2023-05-11 20:11] VITALS: BP 111/63
[2023-05-11 22:30] LABS: Hematocrit 33.8 % (33.0-51.0); Hemoglobin 11.1 g/dL (11.5-16.0)
[2023-05-12 04:55] LABS: BASOPHILS ABSOLUTE AUTO 0.02 K/mm3 (0.00-0.23); BASOPHILS PERCENT AUTO 0 % (0-2); EOSINOPHILS ABSOLUTE AUTO 0.22 K/mm3 (0.00-0.68); EOSINOPHILS PERCENT AUTO 2 % (0-6); Hemoglobin 11.4 g/dL (11.5-16.0); IMMATURE GRAN ABSOLUTE AUTO 0.06 K/mm3 (0.00-0.10); IMMATURE GRAN PERCENT AUTO 1 % (0-1); LYMPHOCYTES ABSOLUTE AUTO 1.05 K/mm3 (0.84-5.20); LYMPHOCYTES PERCENT AUTO 8 % (21-46); MONOCYTES ABSOLUTE AUTO 0.59 K/mm3 (0.16-1.47); MONOCYTES PERCENT AUTO 5 % (4-13); Mean Corpuscular HGB 31.1 pg (26.0-34.0); Mean Corpuscular HGB Conc 32.6 g/dL (31.5-36.5); Mean Corpuscular Volume 96 fL (80-100); Mean Platelet Volume 10.2 fL (9.1-12.4); NEUTROPHILS ABSOLUTE AUTO 10.62 K/mm3 (1.96-9.15); NEUTROPHILS PERCENT AUTO 84 % (41-73); Platelet Count 189 K/mm3 (150-400); RDW Coefficient Variation 13.3 % (11.7-14.2); RDW Standard Deviation 47.1 fL (35.1-46.3); Red Blood Cell Count 3.66 M/mm3 (3.80-5.20); White Blood Cell Count 12.56 K/mm3 (4.00-11.30)
[2023-05-12 05:13] LABS: Albumin, Blood 2.6 g/dL (3.4-5.0); Albumin/Globulin Ratio 1.2 (0.8-1.8); Bilirubin, Total 0.7 mg/dL (0.1-1.0); Bun/Creatinine Ratio 15.7 (12.0-20.0); Calcium, Blood 7.2 mg/dL (8.5-10.1); Creatinine, Blood 0.76 mg/dL (0.40-1.00); Globulin, Blood 2.1 g/dL (2.2-4.0); Phosphorus, Blood 1.8 mg/dL (2.5-4.9); Potassium, Blood 3.5 mmol/L (3.5-5.5); Total Protein, Blood 4.7 g/dL (6.4-8.2)
[2023-05-12 05:38] VITALS: BP 166/96
--- NOTE | 2023-05-12 06:37 | NUR ---
SHIFT SUMMARY PT REMAINS A&O X4, ON RA, 0.45% NS INFUSING PER EMAR, PAIN MANAGED W/1MG IV DILAUDID, ZOFRAN FOR NAUSEA, NO VOMITING/STOOLS THROUGH THE NIGHT, VSS FOR THE MOST PART BUT BP CONTINUES TO FLUCTUATE. SBA TO BSC, VOIDING WNL, NPO SINCE 6AM FOR PENDING PROCEDURE, WCTM & REPORT TO DAY RN, RESTING QUIETLY AT THIS TIME, CALL LIGHT IN REACH.
[2023-05-12 07:24] VITALS: BP 143/85
[2023-05-12 12:34] LABS: Hematocrit 35.2 % (33.0-51.0); Hemoglobin 11.8 g/dL (11.5-16.0)
--- NOTE | 2023-05-12 13:38 | NUR ---
[facility] JUAN BURNETT MD, NEUROLOGIST, [place], [place], GENERAL [phone] OR [phone] OR [phone], TOLL FREE [phone]
[2023-05-12 13:53] VITALS: BP 163/87
[2023-05-12 15:29] VITALS: BP 165/95
[2023-05-12 15:29] LABS: Phosphorus, Blood 1.5 mg/dL (2.5-4.9); Potassium, Blood 3.4 mmol/L (3.5-5.5)
[2023-05-12 19:09] VITALS: BP 130/78
--- NOTE | 2023-05-12 20:06 | NUR ---
SHIFT SUMMARY PT A&OX4, VSS/RA, JENNIFER PO CLD-TAKING IN SMALL AMTS, VOIDING WELL/BSC, DENIES BM OR BLOOD THIS SHIFT, AMB SBA, IVF/ABX PER EMAR, REPORT TO CHRISTOS ELIZONDO.
[2023-05-12 21:19] VITALS: BP 162/96
[2023-05-13 04:16] VITALS: BP 145/96
[2023-05-13 05:45] LABS: BASOPHILS ABSOLUTE AUTO 0.03 K/mm3 (0.00-0.23); BASOPHILS PERCENT AUTO 0 % (0-2); EOSINOPHILS ABSOLUTE AUTO 0.17 K/mm3 (0.00-0.68); EOSINOPHILS PERCENT AUTO 2 % (0-6); Hematocrit 36.2 % (33.0-51.0); IMMATURE GRAN ABSOLUTE AUTO 0.05 K/mm3 (0.00-0.10); IMMATURE GRAN PERCENT AUTO 1 % (0-1); LYMPHOCYTES ABSOLUTE AUTO 0.79 K/mm3 (0.84-5.20); LYMPHOCYTES PERCENT AUTO 8 % (21-46); MONOCYTES ABSOLUTE AUTO 0.45 K/mm3 (0.16-1.47); MONOCYTES PERCENT AUTO 5 % (4-13); Mean Corpuscular HGB 31.5 pg (26.0-34.0); Mean Corpuscular HGB Conc 33.1 g/dL (31.5-36.5); Mean Corpuscular Volume 95 fL (80-100); Mean Platelet Volume 10.1 fL (9.1-12.4); NEUTROPHILS ABSOLUTE AUTO 8.44 K/mm3 (1.96-9.15); NEUTROPHILS PERCENT AUTO 85 % (41-73); Platelet Count 199 K/mm3 (150-400); RDW Standard Deviation 45.1 fL (35.1-46.3); Red Blood Cell Count 3.81 M/mm3 (3.80-5.20); White Blood Cell Count 9.93 K/mm3 (4.00-11.30)
[2023-05-13 06:08] LABS: Albumin, Blood 2.8 g/dL (3.4-5.0); Albumin/Globulin Ratio 1.1 (0.8-1.8); Bilirubin, Total 0.7 mg/dL (0.1-1.0); Bun/Creatinine Ratio 10.8 (12.0-20.0); Calcium, Blood 6.8 mg/dL (8.5-10.1); Creatinine, Blood 0.74 mg/dL (0.40-1.00); Globulin, Blood 2.5 g/dL (2.2-4.0); Potassium, Blood 3.2 mmol/L (3.5-5.5); Total Protein, Blood 5.3 g/dL (6.4-8.2)
--- NOTE | 2023-05-13 06:59 | NUR ---
SHIFT SUMMARY NO ACUTE CHANGES NOTED THROUGH THE NIGHT, PAIN MANAGED WITH IV DILAUDID, PT STATES "PERCOCET IS FOR MY BACK PAIN", ZOFRAN FOR NAUSEA, VSS, ON RA, TOLERATING CLEAR FLUIDS, SBA TO BSC, REPORT GIVEN TO DAY RN, CALL LIGHT IN REACH
[2023-05-13 07:35] VITALS: BP 109/70
[2023-05-13 10:06] VITALS: BP 173/93
--- NOTE | 2023-05-13 15:46 | NUR ---
Spiritual Care Visit. Pt. is awake in bed and welcomes my visit. Pt. is pleasant, and verbalized her expectation to discharge soon. Faclitated a life review and Pt. shared about the impact of losing her mother 7 years ago. Considered matters of grief, loss, and calvin. With theraputic listening and pastoral care, pt. displayed evidence of agreement, and an encouraged spirit. Pts. spouse arrived. Prayed with Pt. Pt. verbalized gratitude for the spiritual care visit.
[2023-05-13] MEDS ORDERED: AMOCLA875 PO (15:48)
--- NOTE | 2023-05-13 16:14 | NUR ---
DISCHARGE PATIENT DISCUSSED HER STRONG FEELINGS OF WANTING TO DISCHARGE HOME DESPITE HER CURRENT SYMPTOMS TO DR VELAZQUEZ. DR VELAZQUEZ AGREEABLE AND REQUESTING FOLLOW-UP WITH PCP. PATIENT AGREEABLE. VOIDING W/O DIFFICULTY. AMBULATING INDEPENDENLY IN ROOM. DISCUSSED DISHCARGE INSTRUCTIONS, SENT WITH PATIENT. ESCORTED OUT VIA W/C.
--- NOTE | 2023-05-13 20:02 | NUR ---
Review of pt needs iwht her SO. They wanted material on advance directives and POA and little and trust. Gave them resource and advance directives reviewed options. 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 We discussed diversiona and alternate therapie and visual meditations. She likes to go outside reviewed grounding. Will mail her some additions supportive resources.
== END 2023-05-13 17:37 | disposition home or self-care (01) | DRG 392 ==
LOC: ER 06:12 → SURS 13:16
PROVIDERS: Emergency Medicine; Internal Medicine; Internal Medicine Gastroenterology; ADMIT Family Medicine
DX: K57.32 Diverticulitis of large intestine without perforation or abscess without bleeding (principal); K86.2 Cyst of pancreas; K62.5 Hemorrhage of anus and rectum; K57.30 Diverticulosis of large intestine without perforation or abscess without bleeding; K52.9 Noninfective gastroenteritis and colitis, unspecified; E87.6 Hypokalemia; D72.829 Elevated white blood cell count, unspecified; I10 Essential (primary) hypertension; M79.7 Fibromyalgia; I48.0 Paroxysmal atrial fibrillation; G90.9 Disorder of the autonomic nervous system, unspecified; G25.81 Restless legs syndrome; I95.9 Hypotension, unspecified; M19.90 Unspecified osteoarthritis, unspecified site; Z87.19 Personal history of other diseases of the digestive system; Z90.89 Acquired absence of other organs; Z98.890 Other specified postprocedural states; Z86.61 Personal history of infections of the central nervous system; Z15.09 Genetic susceptibility to other malignant neoplasm; Z88.8 Allergy status to other drugs, medicaments and biological substances; Z88.4 Allergy status to anesthetic agent; Z88.5 Allergy status to narcotic agent
CPT/HCPCS: 36415; 74177; 80053; 83605; 83690; 83735; 84100; 84132; 85014; 85018; 85025; 96361; 96365-59; 96366; 96367; 96375; 96376; 99285-25; A9270; J1170; J2405; J2543; J3010; J3480; J7030; J7050; J7060; Q9967

== ENCOUNTER 2023-06-30 10:43 | Emergency (ER) | payer MEDICARE ==
[~2023-06-30] VITALS: Ht 149.9 cm; Wt 49.9 kg
[~2023-06-30 10:43] MED LIST changes: +CIPR500 PO; +METR500 PO; +MIDO5 PO; +OXYACE7.5T PO; +OYSTER SHELL C500 MG PO; +PROLIA60 MG/1 ML SC; +VITAMIN D5000 UNIT PO
[2023-06-30 10:48] VITALS: BP 185/107
[2023-06-30] MEDS ORDERED: TRAM50 PO (10:59)
[2023-06-30 11:43] LABS: BASOPHILS ABSOLUTE AUTO 0.03 K/mm3 (0.00-0.23); BASOPHILS PERCENT AUTO 1 % (0-2); EOSINOPHILS ABSOLUTE AUTO 0.14 K/mm3 (0.00-0.68); EOSINOPHILS PERCENT AUTO 2 % (0-6); Hematocrit 40.6 % (33.0-51.0); Hemoglobin 13.8 g/dL (11.5-16.0); IMMATURE GRAN ABSOLUTE AUTO 0.01 K/mm3 (0.00-0.10); IMMATURE GRAN PERCENT AUTO 0 % (0-1); LYMPHOCYTES ABSOLUTE AUTO 1.64 K/mm3 (0.84-5.20); LYMPHOCYTES PERCENT AUTO 25 % (21-46); MONOCYTES ABSOLUTE AUTO 0.56 K/mm3 (0.16-1.47); MONOCYTES PERCENT AUTO 9 % (4-13); Mean Corpuscular HGB 31.8 pg (26.0-34.0); Mean Corpuscular Volume 94 fL (80-100); Mean Platelet Volume 9.8 fL (9.1-12.4); NEUTROPHILS PERCENT AUTO 63 % (41-73); Platelet Count 233 K/mm3 (150-400); RDW Coefficient Variation 13.4 % (11.7-14.2); Red Blood Cell Count 4.34 M/mm3 (3.80-5.20); White Blood Cell Count 6.48 K/mm3 (4.00-11.30)
[2023-06-30 12:06] LABS: Albumin, Blood 3.3 g/dL (3.4-5.0); Albumin/Globulin Ratio 1.1 (0.8-1.8); Bilirubin, Total 0.5 mg/dL (0.1-1.0); Bun/Creatinine Ratio 28.1 (12.0-20.0); Calcium, Blood 8.6 mg/dL (8.5-10.1); Creatinine, Blood 0.78 mg/dL (0.40-1.00); Globulin, Blood 2.9 g/dL (2.2-4.0); Potassium, Blood 3.8 mmol/L (3.5-5.5); Total Protein, Blood 6.2 g/dL (6.4-8.2)
[2023-06-30] MEDS ORDERED: OXAYDO5 M1 PO (14:20)
== END 2023-06-30 15:05 | disposition home or self-care (01) ==
LOC: ER 10:43
PROVIDERS: Emergency Medicine
DX: S02.612A Fracture of condylar process of left mandible, initial encounter for closed fracture (principal); S02.611A Fracture of condylar process of right mandible, initial encounter for closed fracture; R55 Syncope and collapse; W18.30XA Fall on same level, unspecified, initial encounter; Z79.899 Other long term (current) drug therapy; I48.91 Unspecified atrial fibrillation; M19.90 Unspecified osteoarthritis, unspecified site
CPT/HCPCS: 12011; 70450; 70486; 72125; 80053; 85025; 93005; 93010; 96374-59; 96375-59; 99284-25; J1885; J2270; J2405

== ENCOUNTER 2023-09-11 19:47 | Emergency (ER) | payer MEDICARE ==
[~2023-09-11] VITALS: Ht 154.9 cm; Wt 48.1 kg
[~2023-09-11 19:47] MED LIST changes: -MOVANTIK12.5 MG; -Methocarbamol750 MG
[2023-09-11 23:30] VITALS: BP 140/87
[2023-09-12] MEDS ORDERED: Methocarbamol750 MG (05:35)
[2023-09-12] MEDS ORDERED: MOVANTIK12.5 MG (05:36)
== END 2023-09-11 23:31 | disposition home or self-care (01) ==
LOC: ER 19:47
DX: F45.8 Other somatoform disorders (principal); E87.6 Hypokalemia; E83.42 Hypomagnesemia; Z79.899 Other long term (current) drug therapy; I48.91 Unspecified atrial fibrillation; M19.90 Unspecified osteoarthritis, unspecified site; R11.2 Nausea with vomiting, unspecified; I95.89 Other hypotension
CPT/HCPCS: 80053; 82550; 83690; 83735; 84132; 85025; 93005; 93010; 96365; 96366; 96368; 96375; 99285-25; A9270; J0780; J2765; J3475; J3480

== ENCOUNTER → 2023-09-11 | Outpatient (CLI) | payer MEDICARE ==
[~2023-09-11] MED LIST changes: +MOVANTIK12.5 MG; +Methocarbamol750 MG; +OXAYDO5 M1 PO
[2023-09-11 16:50] LABS: BASOPHILS ABSOLUTE AUTO 0.03 K/mm3 (0.00-0.23); BASOPHILS PERCENT AUTO 1 % (0-2); EOSINOPHILS ABSOLUTE AUTO 0.08 K/mm3 (0.00-0.68); EOSINOPHILS PERCENT AUTO 1 % (0-6); Hematocrit 42.5 % (33.0-51.0); Hemoglobin 14.8 g/dL (11.5-16.0); IMMATURE GRAN ABSOLUTE AUTO 0.02 K/mm3 (0.00-0.10); IMMATURE GRAN PERCENT AUTO 0 % (0-1); LYMPHOCYTES PERCENT AUTO 23 % (21-46); MONOCYTES ABSOLUTE AUTO 0.51 K/mm3 (0.16-1.47); MONOCYTES PERCENT AUTO 8 % (4-13); Mean Corpuscular HGB Conc 34.8 g/dL (31.5-36.5); Mean Corpuscular Volume 92 fL (80-100); Mean Platelet Volume 9.6 fL (9.1-12.4); NEUTROPHILS ABSOLUTE AUTO 4.44 K/mm3 (1.96-9.15); NEUTROPHILS PERCENT AUTO 67 % (41-73); Platelet Count 245 K/mm3 (150-400); RDW Coefficient Variation 12.5 % (11.7-14.2); RDW Standard Deviation 42.2 fL (35.1-46.3); Red Blood Cell Count 4.62 M/mm3 (3.80-5.20); White Blood Cell Count 6.58 K/mm3 (4.00-11.30)
[2023-09-11 17:05] LABS: Albumin, Blood 3.8 g/dL (3.4-5.0); Albumin/Globulin Ratio 1.2 (0.8-1.8); Bilirubin, Total 0.5 mg/dL (0.1-1.0); Bun/Creatinine Ratio 21.5 (12.0-20.0); Calcium, Blood 9.5 mg/dL (8.5-10.1); Creatinine, Blood 0.93 mg/dL (0.40-1.00); Globulin, Blood 3.2 g/dL (2.2-4.0); Potassium, Blood 2.6 mmol/L (3.5-5.5)
[2023-09-11 19:09] LABS: Magnesium, Blood 1.2 mg/dL (1.6-2.4); Potassium, Blood 2.7 mmol/L (3.5-5.5)
== END | disposition home or self-care (01) ==
LOC: LAB 16:47 → LAB SHORT 16:47
PROVIDERS: Family Medicine
DX: R11.2 Nausea with vomiting, unspecified (principal); I95.89 Other hypotension; E87.6 Hypokalemia
CPT/HCPCS: 80053; 82550; 83690; 83735; 84132; 85025

== ENCOUNTER 2023-11-15 16:31 | Observation (INO) | payer MEDICARE ==
[~2023-11-15] VITALS: Ht 149.9 cm; Wt 46.7 kg
[~2023-11-15 16:31] MED LIST changes: +MOVANTIK12.5 MG; +Methocarbamol750 MG
[2023-11-15] MEDS ORDERED: OXYACE7.5T (16:56)
[2023-11-15 18:27] LABS: BASOPHILS ABSOLUTE AUTO 0.05 K/mm3 (0.00-0.23); BASOPHILS PERCENT AUTO 1 % (0-2); EOSINOPHILS ABSOLUTE AUTO 0.11 K/mm3 (0.00-0.68); EOSINOPHILS PERCENT AUTO 1 % (0-6); Hematocrit 38.9 % (33.0-51.0); Hemoglobin 12.9 g/dL (11.5-16.0); IMMATURE GRAN ABSOLUTE AUTO 0.03 K/mm3 (0.00-0.10); IMMATURE GRAN PERCENT AUTO 0 % (0-1); LYMPHOCYTES ABSOLUTE AUTO 1.23 K/mm3 (0.84-5.20); LYMPHOCYTES PERCENT AUTO 12 % (21-46); MONOCYTES ABSOLUTE AUTO 0.62 K/mm3 (0.16-1.47); MONOCYTES PERCENT AUTO 6 % (4-13); Mean Corpuscular HGB 31.2 pg (26.0-34.0); Mean Corpuscular HGB Conc 33.2 g/dL (31.5-36.5); Mean Corpuscular Volume 94 fL (80-100); Mean Platelet Volume 10.1 fL (9.1-12.4); NEUTROPHILS ABSOLUTE AUTO 7.87 K/mm3 (1.96-9.15); NEUTROPHILS PERCENT AUTO 79 % (41-73); Platelet Count 263 K/mm3 (150-400); RDW Coefficient Variation 12.8 % (11.7-14.2); RDW Standard Deviation 43.8 fL (35.1-46.3); Red Blood Cell Count 4.13 M/mm3 (3.80-5.20); White Blood Cell Count 9.91 K/mm3 (4.00-11.30)
[2023-11-15 18:40] LABS: Albumin, Blood 3.6 g/dL (3.4-5.0); Albumin/Globulin Ratio 1.2 (0.8-1.8); Bilirubin, Total 0.5 mg/dL (0.1-1.0); Bun/Creatinine Ratio 23.7 (12.0-20.0); Calcium, Blood 8.4 mg/dL (8.5-10.1); Creatinine, Blood 0.84 mg/dL (0.40-1.00); Potassium, Blood 3.7 mmol/L (3.5-5.5); Total Protein, Blood 6.6 g/dL (6.4-8.2)
[2023-11-16 02:55] LABS: BASOPHILS ABSOLUTE AUTO 0.03 K/mm3 (0.00-0.23); BASOPHILS PERCENT AUTO 1 % (0-2); EOSINOPHILS ABSOLUTE AUTO 0.08 K/mm3 (0.00-0.68); EOSINOPHILS PERCENT AUTO 1 % (0-6); Hemoglobin 10.9 g/dL (11.5-16.0); IMMATURE GRAN ABSOLUTE AUTO 0.02 K/mm3 (0.00-0.10); IMMATURE GRAN PERCENT AUTO 0 % (0-1); LYMPHOCYTES ABSOLUTE AUTO 1.13 K/mm3 (0.84-5.20); LYMPHOCYTES PERCENT AUTO 18 % (21-46); MONOCYTES ABSOLUTE AUTO 0.39 K/mm3 (0.16-1.47); MONOCYTES PERCENT AUTO 6 % (4-13); Mean Corpuscular HGB 31.6 pg (26.0-34.0); Mean Corpuscular Volume 96 fL (80-100); Mean Platelet Volume 9.6 fL (9.1-12.4); NEUTROPHILS ABSOLUTE AUTO 4.57 K/mm3 (1.96-9.15); NEUTROPHILS PERCENT AUTO 73 % (41-73); Platelet Count 173 K/mm3 (150-400); RDW Coefficient Variation 12.9 % (11.7-14.2); RDW Standard Deviation 45.4 fL (35.1-46.3); Red Blood Cell Count 3.45 M/mm3 (3.80-5.20); White Blood Cell Count 6.22 K/mm3 (4.00-11.30)
[2023-11-16] MEDS ORDERED: Percocet 10-321 EACH PO (03:03)
[2023-11-16 03:14] VITALS: BP 132/85
[2023-11-16 03:14] LABS: Albumin/Globulin Ratio 1.3 (0.8-1.8); Bilirubin, Total 0.5 mg/dL (0.1-1.0); Bun/Creatinine Ratio 24.5 (12.0-20.0); Calcium, Blood 6.5 mg/dL (8.5-10.1); Creatinine, Blood 0.65 mg/dL (0.40-1.00); Globulin, Blood 2.3 g/dL (2.2-4.0); Potassium, Blood 3.4 mmol/L (3.5-5.5); Total Protein, Blood 5.3 g/dL (6.4-8.2)
--- NOTE | 2023-11-16 07:08 | NUR ---
SHIFT SUMMARY NOC ADMIT FROM ED WITH AUTONOMIC DYSFUNCTION/ORTHOSTATIC HYPOTENSION. PT HAD VERY LABILE FLUCUATING BP DOWN IN ED AND RECEIVED X 2 DOSES OF MIDODRIN. UPON ADMIT TO FLOOR PT BP STABLE. PT AGREED TO USE BEDPAN INSTEAD OF ATTEMPTING TO GET UP TO BSC DUE TO SEVERE ORTHOSTATISC HYPOTENSION. PT A/O X 4. ON TELE RUNNING SINUS RHYTHM IN 80'S-90'S. NS INFUSING @ 100 ML/HR. PT IS CURRENTLY RESTING WITH BED IN LOWEST POSITION, AND CALL LIGHT WITHIN REACH.
[2023-11-16 08:08] VITALS: BP 162/88
[2023-11-16 11:14] LABS: Free Thyroxine 1.03 ng/dL (0.70-1.60); Magnesium, Blood 1.7 mg/dL (1.6-2.4); Thyroid Stimulating Hormone 0.121 uIU/mL (0.360-4.800); Triiodothyronine, Free 2.42 pg/mL (2.18-3.98)
[2023-11-16 15:40] VITALS: BP 130/88
--- NOTE | 2023-11-16 16:56 | NUR ---
SHIFT SUMMARY CONTINUES TO BE SYMPTOMATIC WHEN STANDING OR AMBULATING SHORT DISTANCES TO BATHROOM. UNABLE TO STAND LONG ENOUGH SAFELY TO DO ORTHOSTATIC BP, STATES SHE FEELS LIKE SHE WILL PASS OUT AND SITS DOWN. DOC OKAYED SOME HOME MEDS TO BE ORDERED AND GIVEN, THIS WAS DONE. DOC STATED HE IS PLANNING ON DISCHARGING HER THIS SHIFT, WILL WAIT FOR ORDERS AND CONITNUE TO MONITOR
[2023-11-16] MEDS ORDERED: CARBLEV25 SL (18:30)
--- NOTE | 2023-11-16 19:17 | NUR ---
DISCHARGE SUMMARY PATIENT DISCHARGED THIS SHIFT WITH SPOUCE TO DRIVE. IV WAS REMOVED PRIOR. DISHCARGE PACKET GIVEN AND QUESTIONS ANSWERED, VERBALIZED UNDERSTANDING, EDUCATION PROVIDED IN WRITTING. HOME MEDS RETURNED, OXY AND ROPINEROL.
== END 2023-11-16 19:05 | disposition home or self-care (01) ==
LOC: ER 16:31 → MEDS 16:32 → PCU 16:32 → ER 11-16 01:43 → PCU 11-16 01:43 → MEDS 11-16 01:43 → PCU 11-16 03:07 → MEDS 11-16 03:07
PROVIDERS: Internal Medicine; Student in an Organized Health Care Education/Training Program; ADMIT Internal Medicine
DX: G90.9 Disorder of the autonomic nervous system, unspecified (principal); I95.1 Orthostatic hypotension; E83.42 Hypomagnesemia; M19.90 Unspecified osteoarthritis, unspecified site; K52.9 Noninfective gastroenteritis and colitis, unspecified; Z15.09 Genetic susceptibility to other malignant neoplasm; I48.0 Paroxysmal atrial fibrillation; G25.81 Restless legs syndrome; E05.20 Thyrotoxicosis with toxic multinodular goiter without thyrotoxic crisis or storm; M48.54XA Collapsed vertebra, not elsewhere classified, thoracic region, initial encounter for fracture; M48.00 Spinal stenosis, site unspecified; F32.9 Major depressive disorder, single episode, unspecified; Z79.899 Other long term (current) drug therapy
CPT/HCPCS: 71045; 80053; 83735; 83880; 84439; 84443; 84481; 85025; 93005; 93010; 96361; 96372; 96374; 96375; 96376; 99285-25; A9270; G0378; J1650; J1790; J2405; J7030

== ENCOUNTER 2024-01-01 14:26 | Emergency (ER) | payer MEDICARE ==
[~2024-01-01] VITALS: Ht 149.9 cm; Wt 49.9 kg
[~2024-01-01 14:26] MED LIST changes: +CARBLEV25 SL; +OXYACE7.5T; +Percocet 10-321 EACH PO
[2024-01-01] MEDS ORDERED: Ondansetron HCl 2 MG / ML 2ML Vial IV ONE (15:30)
[2024-01-01] MEDS ORDERED: NS 1,000 ML IV SCH (15:30)
[2024-01-01 15:36] LABS: BASOPHILS ABSOLUTE AUTO 0.03 K/mm3 (0.00-0.23); BASOPHILS PERCENT AUTO 0 % (0-2); EOSINOPHILS ABSOLUTE AUTO 0.11 K/mm3 (0.00-0.68); EOSINOPHILS PERCENT AUTO 1 % (0-6); Hematocrit 41.2 % (33.0-51.0); Hemoglobin 13.9 g/dL (11.5-16.0); IMMATURE GRAN ABSOLUTE AUTO 0.03 K/mm3 (0.00-0.10); IMMATURE GRAN PERCENT AUTO 0 % (0-1); LYMPHOCYTES ABSOLUTE AUTO 1.82 K/mm3 (0.84-5.20); LYMPHOCYTES PERCENT AUTO 20 % (21-46); MONOCYTES ABSOLUTE AUTO 0.88 K/mm3 (0.16-1.47); MONOCYTES PERCENT AUTO 10 % (4-13); Mean Corpuscular HGB 30.5 pg (26.0-34.0); Mean Corpuscular HGB Conc 33.7 g/dL (31.5-36.5); Mean Corpuscular Volume 90 fL (80-100); Mean Platelet Volume 10.8 fL (9.1-12.4); NEUTROPHILS ABSOLUTE AUTO 6.19 K/mm3 (1.96-9.15); NEUTROPHILS PERCENT AUTO 68 % (41-73); Platelet Count 392 K/mm3 (150-400); RDW Coefficient Variation 13.5 % (11.7-14.2); RDW Standard Deviation 45.1 fL (35.1-46.3); Red Blood Cell Count 4.56 M/mm3 (3.80-5.20); White Blood Cell Count 9.06 K/mm3 (4.00-11.30)
[2024-01-01 16:00] LABS: Albumin, Blood 3.9 g/dL (3.4-5.0); Albumin/Globulin Ratio 1.3 (0.8-1.8); Bilirubin, Total 0.6 mg/dL (0.1-1.0); Bun/Creatinine Ratio 21.2 (12.0-20.0); Calcium, Blood 9.7 mg/dL (8.5-10.1); Creatinine, Blood 1.46 mg/dL (0.40-1.00); Globulin, Blood 3.1 g/dL (2.2-4.0); Potassium, Blood 3.9 mmol/L (3.5-5.5)
[2024-01-01 16:42] LABS: Influenza A, PCR NEGATIVE (NEGATIVE); Influenza B, PCR NEGATIVE (NEGATIVE); Resp Syncytial Virus, PCR NEGATIVE (NEGATIVE); SARS-Cov-2 (COVID-19) PCR, MMC NEGATIVE (NEGATIVE)
[2024-01-01] MEDS ORDERED: Metoclopramide HCl 5MG / ML 2ML Vial IV ONE (17:05)
[2024-01-01 19:30] VITALS: BP 158/90
[2024-01-01] MEDS ORDERED: METO10 PO (19:54)
== END 2024-01-01 20:00 | disposition home or self-care (01) ==
LOC: ER 14:26
PROVIDERS: Emergency Medicine; Student in an Organized Health Care Education/Training Program
DX: E86.0 Dehydration (principal); G90.9 Disorder of the autonomic nervous system, unspecified; M79.7 Fibromyalgia; I48.91 Unspecified atrial fibrillation; M19.90 Unspecified osteoarthritis, unspecified site; G47.00 Insomnia, unspecified; G25.81 Restless legs syndrome; F17.290 Nicotine dependence, other tobacco product, uncomplicated; Z79.899 Other long term (current) drug therapy
CPT/HCPCS: 0241U; 80053; 84484; 85025; 93005; 93010; 96361; 96374; 96375; 99285-25; J2405; J2765; J7030

== ENCOUNTER 2024-01-07 13:30 | Emergency (ER) | payer MEDICARE ==
[~2024-01-07] VITALS: Ht 165.1 cm; Wt 63.5 kg
[~2024-01-07 13:30] MED LIST changes: +METO10 PO
[2024-01-07 14:46] LABS: Albumin, Blood 3.6 g/dL (3.4-5.0); Albumin/Globulin Ratio 1.2 (0.8-1.8); Bilirubin, Total 0.4 mg/dL (0.1-1.0); Bun/Creatinine Ratio 35.2 (12.0-20.0); Calcium, Blood 9.7 mg/dL (8.5-10.1); Creatinine, Blood 0.71 mg/dL (0.40-1.00); Potassium, Blood 4.3 mmol/L (3.5-5.5); Total Protein, Blood 6.6 g/dL (6.4-8.2)
[2024-01-07] MEDS ORDERED: Acetaminophen 500 MG Tab PO ONE (15:40)
[2024-01-07 15:48] LABS: Source, Urine Straight Cath
[2024-01-07 15:56] LABS: Appearance, Urine Clear (Clear); Bilirubin, Urine Neg (Neg); Blood, Urine Neg (Neg); Glucose Qualitative, Urine Neg (Neg); Ketones, Urine Neg (Neg); Leukocyte Esterase, Urine Neg (Neg); Nitrite, Urine Neg (Neg); Protein, Urine Neg (Neg); Urobilinogen, Urine NORM (Normal)
[2024-01-07 16:08] LABS: Color, Urine Pale Yellow (P-Yellow)
[2024-01-07 16:10] LABS: BASOPHILS ABSOLUTE AUTO 0.04 K/mm3 (0.00-0.23); BASOPHILS PERCENT AUTO 1 % (0-2); EOSINOPHILS ABSOLUTE AUTO 0.14 K/mm3 (0.00-0.68); EOSINOPHILS PERCENT AUTO 2 % (0-6); Hematocrit 37.9 % (33.0-51.0); Hemoglobin 12.6 g/dL (11.5-16.0); IMMATURE GRAN ABSOLUTE AUTO 0.02 K/mm3 (0.00-0.10); IMMATURE GRAN PERCENT AUTO 0 % (0-1); LYMPHOCYTES ABSOLUTE AUTO 1.79 K/mm3 (0.84-5.20); LYMPHOCYTES PERCENT AUTO 25 % (21-46); MONOCYTES PERCENT AUTO 8 % (4-13); Mean Corpuscular HGB 30.8 pg (26.0-34.0); Mean Corpuscular HGB Conc 33.2 g/dL (31.5-36.5); Mean Corpuscular Volume 93 fL (80-100); Mean Platelet Volume 10.2 fL (9.1-12.4); NEUTROPHILS ABSOLUTE AUTO 4.65 K/mm3 (1.96-9.15); NEUTROPHILS PERCENT AUTO 64 % (41-73); Platelet Count 300 K/mm3 (150-400); RDW Coefficient Variation 12.9 % (11.7-14.2); RDW Standard Deviation 43.8 fL (35.1-46.3); Red Blood Cell Count 4.09 M/mm3 (3.80-5.20); White Blood Cell Count 7.24 K/mm3 (4.00-11.30)
[2024-01-07 16:20] LABS: U Amphetamine Screen Not Detected; U Barbituate Screen Not Detected; U Methamphetamine Screen Not Detected; U Oxycodone Screen DETECTED
[2024-01-07 16:21] LABS: U Benzodiazapine Screen Not Detected; U Buprenorphine Screen Not Detected; U Cannabinoids Screen Not Detected; U Cocaine Screen Not Detected; U Methadone Screen Not Detected; U Opiates Screen Not Detected; U Phencyclidine Screen Not Detected
[2024-01-07 17:20] VITALS: BP 163/99
== END 2024-01-07 17:43 | disposition home or self-care (01) ==
LOC: ER 13:30
PROVIDERS: Emergency Medicine; Student in an Organized Health Care Education/Training Program
DX: R07.89 Other chest pain (principal); R41.82 Altered mental status, unspecified; G90.9 Disorder of the autonomic nervous system, unspecified; F17.290 Nicotine dependence, other tobacco product, uncomplicated; I95.1 Orthostatic hypotension; M79.7 Fibromyalgia; G25.81 Restless legs syndrome; I48.91 Unspecified atrial fibrillation; M19.90 Unspecified osteoarthritis, unspecified site; Z79.899 Other long term (current) drug therapy
CPT/HCPCS: 51702; 70450; 71046; 80053; 81003; 82140; 84484; 85025; 93005; 93010; 99285-25; A9270

== ENCOUNTER 2024-05-09 16:02 | Emergency (ER) | payer MEDICARE ==
[~2024-05-09] VITALS: Ht 149.9 cm; Wt 45.4 kg
[2024-05-09] MEDS ORDERED: NS 1,000 ML IV SCH ×2 (16:30→17:55)
[2024-05-09 16:42] LABS: BASOPHILS ABSOLUTE AUTO 0.03 K/mm3 (0.00-0.23); BASOPHILS PERCENT AUTO 0 % (0-2); EOSINOPHILS ABSOLUTE AUTO 0.01 K/mm3 (0.00-0.68); EOSINOPHILS PERCENT AUTO 0 % (0-6); Hematocrit 38.1 % (33.0-51.0); Hemoglobin 12.6 g/dL (11.5-16.0); IMMATURE GRAN ABSOLUTE AUTO 0.04 K/mm3 (0.00-0.10); IMMATURE GRAN PERCENT AUTO 0 % (0-1); LYMPHOCYTES ABSOLUTE AUTO 1.17 K/mm3 (0.84-5.20); LYMPHOCYTES PERCENT AUTO 12 % (21-46); MONOCYTES PERCENT AUTO 4 % (4-13); Mean Corpuscular HGB 30.5 pg (26.0-34.0); Mean Corpuscular HGB Conc 33.1 g/dL (31.5-36.5); Mean Corpuscular Volume 92 fL (80-100); Mean Platelet Volume 10.5 fL (9.1-12.4); NEUTROPHILS ABSOLUTE AUTO 7.87 K/mm3 (1.96-9.15); NEUTROPHILS PERCENT AUTO 83 % (41-73); Platelet Count 313 K/mm3 (150-400); RDW Coefficient Variation 13.2 % (11.7-14.2); RDW Standard Deviation 45.3 fL (35.1-46.3); Red Blood Cell Count 4.13 M/mm3 (3.80-5.20); White Blood Cell Count 9.52 K/mm3 (4.00-11.30)
[2024-05-09] MEDS ORDERED: Ondansetron HCl 2 MG / ML 2ML Vial IV ONE (16:55)
[2024-05-09 17:09] LABS: Albumin, Blood 4.4 g/dL (3.4-5.0); Albumin/Globulin Ratio 1.5 (0.8-1.8); Bilirubin, Total 0.8 mg/dL (0.1-1.0); Bun/Creatinine Ratio 36.4 (12.0-20.0); Calcium, Blood 8.7 mg/dL (8.5-10.1); Creatinine, Blood 0.96 mg/dL (0.40-1.00); Globulin, Blood 2.9 g/dL (2.2-4.0); Potassium, Blood 3.8 mmol/L (3.5-5.5); Total Protein, Blood 7.3 g/dL (6.4-8.2)
[2024-05-09] MEDS ORDERED: ONDA4ODT MM (20:53)
[2024-05-09 21:15] VITALS: BP 158/93
== END 2024-05-09 21:27 | disposition home or self-care (01) ==
LOC: ER 16:02
PROVIDERS: Family Medicine
DX: K86.2 Cyst of pancreas (principal); K59.00 Constipation, unspecified; F17.290 Nicotine dependence, other tobacco product, uncomplicated; M19.90 Unspecified osteoarthritis, unspecified site; I48.91 Unspecified atrial fibrillation; Z79.899 Other long term (current) drug therapy
CPT/HCPCS: 74176; 80053; 83690; 85025; 93005; 93010; 96374; 99284-25; J2405; J7030

== ENCOUNTER 2024-06-23 03:33 | Emergency (ER) | payer MEDICARE ==
[~2024-06-23] VITALS: Ht 149.9 cm; Wt 45.4 kg
[2024-06-23] MEDS ORDERED: NS 1,000 ML IV SCH (03:55)
[2024-06-23] MEDS ORDERED: Ondansetron HCl 2 MG / ML 2ML Vial IV ONE (03:55)
[2024-06-23 03:59] LABS: BASOPHILS ABSOLUTE AUTO 0.03 K/mm3 (0.00-0.23); BASOPHILS PERCENT AUTO 0 % (0-2); EOSINOPHILS PERCENT AUTO 1 % (0-6); Hematocrit 35.9 % (33.0-51.0); Hemoglobin 12.1 g/dL (11.5-16.0); IMMATURE GRAN ABSOLUTE AUTO 0.03 K/mm3 (0.00-0.10); IMMATURE GRAN PERCENT AUTO 0 % (0-1); LYMPHOCYTES ABSOLUTE AUTO 2.32 K/mm3 (0.84-5.20); LYMPHOCYTES PERCENT AUTO 23 % (21-46); MONOCYTES PERCENT AUTO 7 % (4-13); Mean Corpuscular HGB 30.5 pg (26.0-34.0); Mean Corpuscular HGB Conc 33.7 g/dL (31.5-36.5); Mean Corpuscular Volume 90 fL (80-100); Mean Platelet Volume 10.4 fL (9.1-12.4); NEUTROPHILS ABSOLUTE AUTO 6.77 K/mm3 (1.96-9.15); NEUTROPHILS PERCENT AUTO 68 % (41-73); Platelet Count 271 K/mm3 (150-400); RDW Coefficient Variation 12.3 % (11.7-14.2); RDW Standard Deviation 40.9 fL (35.1-46.3); Red Blood Cell Count 3.97 M/mm3 (3.80-5.20); White Blood Cell Count 9.95 K/mm3 (4.00-11.30)
[2024-06-23] MEDS ORDERED: Metoclopramide HCl 5MG / ML 2ML Vial IV ONE (04:05)
[2024-06-23 04:22] LABS: Albumin, Blood 4.1 g/dL (3.4-5.0); Albumin/Globulin Ratio 1.4 (0.8-1.8); Bilirubin, Total 0.3 mg/dL (0.1-1.0); Bun/Creatinine Ratio 57.8 (12.0-20.0); Calcium, Blood 9.4 mg/dL (8.5-10.1); Creatinine, Blood 0.85 mg/dL (0.40-1.00); Potassium, Blood 3.9 mmol/L (3.5-5.5); Thyroid Stimulating Hormone 0.83 uIU/mL (0.360-4.800); Total Protein, Blood 7.1 g/dL (6.4-8.2)
[2024-06-23] MEDS ORDERED: ROPINIROLE HCL2 M1 PO (04:25)
[2024-06-23 05:07] LABS: Source, Urine Clean Catch
[2024-06-23 05:10] LABS: Appearance, Urine Clear (Clear); Bilirubin, Urine Neg (Neg); Blood, Urine Neg (Neg); Color, Urine Yellow (P-Yellow); Glucose Qualitative, Urine Neg (Neg); Ketones, Urine 1+ (Neg); Leukocyte Esterase, Urine Neg (Neg); Nitrite, Urine Neg (Neg); Protein, Urine Neg (Neg); Urobilinogen, Urine NORM (Normal)
[2024-06-23] MEDS ORDERED: Lidocaine 2% Viscous Soln 15 ML UDC PO ONE (05:30)
[2024-06-23] MEDS ORDERED: Mag Hydrox/AL Hydrox/Simeth 30 ML UDC PO ONE (05:30)
[2024-06-23 06:16] VITALS: BP 109/69
[2024-06-27] MEDS ORDERED: MORP15ER PO (01:18)
== END 2024-06-23 06:21 | disposition home or self-care (01) ==
LOC: ER 03:33
PROVIDERS: Emergency Medicine
DX: R55 Syncope and collapse (principal); R11.2 Nausea with vomiting, unspecified; I48.91 Unspecified atrial fibrillation; M19.90 Unspecified osteoarthritis, unspecified site; F17.290 Nicotine dependence, other tobacco product, uncomplicated; Z79.52 Long term (current) use of systemic steroids; Z79.899 Other long term (current) drug therapy; K86.2 Cyst of pancreas
CPT/HCPCS: 0241U; 51701; 71045; 74176; 80053; 81003; 83605; 83690; 83735; 84443; 84484; 85025; 93005; 93010; 96361-59; 96365-59; 96374-59; 96375-59; 96376-59; 99284-25; 99285-25; A9270; J1170; J1200; J2765; J3475; J7030

== ENCOUNTER 2024-08-22 17:29 | Emergency (ER) | payer MEDICARE ==
[~2024-08-22] VITALS: Ht 154.9 cm; Wt 47.6 kg
[2024-08-22 17:50] LABS: BASOPHILS ABSOLUTE AUTO 0.01 K/mm3 (0.00-0.23); BASOPHILS PERCENT AUTO 0 % (0-2); EOSINOPHILS ABSOLUTE AUTO 0.07 K/mm3 (0.00-0.68); EOSINOPHILS PERCENT AUTO 1 % (0-6); Hematocrit 33.7 % (33.0-51.0); Hemoglobin 11.2 g/dL (11.5-16.0); IMMATURE GRAN ABSOLUTE AUTO 0.01 K/mm3 (0.00-0.10); IMMATURE GRAN PERCENT AUTO 0 % (0-1); LYMPHOCYTES ABSOLUTE AUTO 1.46 K/mm3 (0.84-5.20); LYMPHOCYTES PERCENT AUTO 22 % (21-46); MONOCYTES ABSOLUTE AUTO 0.54 K/mm3 (0.16-1.47); MONOCYTES PERCENT AUTO 8 % (4-13); Mean Corpuscular HGB 30.4 pg (26.0-34.0); Mean Corpuscular HGB Conc 33.2 g/dL (31.5-36.5); Mean Corpuscular Volume 91 fL (80-100); Mean Platelet Volume 9.9 fL (9.1-12.4); NEUTROPHILS ABSOLUTE AUTO 4.54 K/mm3 (1.96-9.15); NEUTROPHILS PERCENT AUTO 68 % (41-73); Platelet Count 237 K/mm3 (150-400); RDW Coefficient Variation 13.6 % (11.7-14.2); RDW Standard Deviation 46.3 fL (35.1-46.3); Red Blood Cell Count 3.69 M/mm3 (3.80-5.20); White Blood Cell Count 6.63 K/mm3 (4.00-11.30)
[2024-08-22] MEDS ORDERED: LUBIPROSTONE24 MC8 PO (18:02)
[2024-08-22] MEDS ORDERED: BUPRENO-NALOX1 EAC2 (18:02)
[2024-08-22 18:07] LABS: Albumin, Blood 3.6 g/dL (3.4-5.0); Albumin/Globulin Ratio 1.2 (0.8-1.8); Bilirubin, Total 0.7 mg/dL (0.1-1.0); Bun/Creatinine Ratio 48.3 (12.0-20.0); Creatinine, Blood 0.85 mg/dL (0.40-1.00); Potassium, Blood 4.3 mmol/L (3.5-5.5); Total Protein, Blood 6.6 g/dL (6.4-8.2)
[2024-08-22] MEDS ORDERED: REGLAN1013 PO (18:11)
[2024-08-22] MEDS ORDERED: PREG25 (18:12)
[2024-08-22] MEDS ORDERED: PROM25 (18:12)
[2024-08-22] MEDS ORDERED: OXYC10TA19 PO (18:21)
[2024-08-22] MEDS ORDERED: CALC.25 (18:42)
[2024-08-22] MEDS ORDERED: ONDA4ODT (18:43)
[2024-08-22] MEDS ORDERED: Midodrine 5 MG Tab PO ONE (19:10)
[2024-08-22] MEDS ORDERED: NS 1,000 ML IV SCH (19:10)
[2024-08-22] MEDS ORDERED: Metoclopramide HCl 5MG / ML 2ML Vial IV ONE (19:40)
[2024-08-22] MEDS ORDERED: buprenorphine HCL 2 MG TAB.SUBL SL ONE ×2 (19:40→20:55)
[2024-08-22 21:50] VITALS: BP 139/69
== END 2024-08-22 22:10 | disposition home or self-care (01) ==
LOC: ER 17:29
PROVIDERS: Emergency Medicine
DX: F11.23 Opioid dependence with withdrawal (principal); R52 Pain, unspecified; R10.9 Unspecified abdominal pain; I10 Essential (primary) hypertension; I48.91 Unspecified atrial fibrillation; F03.90 Unspecified dementia, unspecified severity, without behavioral disturbance, psychotic disturbance, mood disturbance, and anxiety; M79.7 Fibromyalgia; G25.81 Restless legs syndrome; F17.290 Nicotine dependence, other tobacco product, uncomplicated; Z66 Do not resuscitate; Z91.041 Radiographic dye allergy status; Z88.5 Allergy status to narcotic agent; Z79.899 Other long term (current) drug therapy
CPT/HCPCS: 71046; 80053; 83605; 83690; 84484; 85025; 93005; 93010; 96361; 96374; 99285-25; A9270; J2765; J7030

== ENCOUNTER 2024-09-07 08:12 | Inpatient (IN) | payer MEDICARE ==
[~2024-09-07 08:12] MED LIST changes: +BUPRENO-NALOX1 EAC2; +CALC.25; +LUBIPROSTONE24 MC8 PO; +ONDA4ODT; +OXYC10TA19 PO; +PREG25; +PROM25; +REGLAN1013 PO
[2024-09-07 08:53] LABS: Base Excess Venous -2.5 mmol/L; Bicarbonate Venous 22.3 mmol/L (24.0-30.0); PCO2 Venous 42.1 mmHg (38-42); pH Blood Venous 7.35 (7.34-7.37)
[2024-09-07 08:59] LABS: BASOPHILS ABSOLUTE AUTO 0.02 K/mm3 (0.00-0.23); BASOPHILS PERCENT AUTO 0 % (0-2); EOSINOPHILS ABSOLUTE AUTO 0.09 K/mm3 (0.00-0.68); EOSINOPHILS PERCENT AUTO 1 % (0-6); Hematocrit 35.6 % (33.0-51.0); Hemoglobin 11.5 g/dL (11.5-16.0); IMMATURE GRAN ABSOLUTE AUTO 0.01 K/mm3 (0.00-0.10); IMMATURE GRAN PERCENT AUTO 0 % (0-1); LYMPHOCYTES ABSOLUTE AUTO 1.41 K/mm3 (0.84-5.20); LYMPHOCYTES PERCENT AUTO 20 % (21-46); MONOCYTES ABSOLUTE AUTO 0.73 K/mm3 (0.16-1.47); MONOCYTES PERCENT AUTO 11 % (4-13); Mean Corpuscular HGB 30.9 pg (26.0-34.0); Mean Corpuscular HGB Conc 32.3 g/dL (31.5-36.5); Mean Corpuscular Volume 96 fL (80-100); Mean Platelet Volume 11.1 fL (9.1-12.4); NEUTROPHILS ABSOLUTE AUTO 4.68 K/mm3 (1.96-9.15); NEUTROPHILS PERCENT AUTO 68 % (41-73); Platelet Count 296 K/mm3 (150-400); RDW Coefficient Variation 13.7 % (11.7-14.2); RDW Standard Deviation 48.6 fL (35.1-46.3); Red Blood Cell Count 3.72 M/mm3 (3.80-5.20); White Blood Cell Count 6.94 K/mm3 (4.00-11.30)
[2024-09-07] MEDS ORDERED: FentaNYL Citrate 50 MCG/ML 2 ML Injection IV ONE (09:00)
[2024-09-07] MEDS ORDERED: Methocarbamol 500 MG Tab PO ONE ×2 (09:00→11:00)
[2024-09-07] MEDS ORDERED: Ketorolac Tromethamine 30mg Vial IV ONE (09:15)
[2024-09-07 09:29] LABS: Influenza A, PCR NEGATIVE (NEGATIVE); Influenza B, PCR NEGATIVE (NEGATIVE); Resp Syncytial Virus, PCR NEGATIVE (NEGATIVE); SARS-Cov-2 (COVID-19) PCR, MMC NEGATIVE (NEGATIVE)
[2024-09-07 09:35] LABS: Magnesium, Blood 1.9 mg/dL (1.6-2.4)
[2024-09-07 09:45] LABS: Albumin, Blood 3.6 g/dL (3.4-5.0); Albumin/Globulin Ratio 1.2 (0.8-1.8); Bilirubin, Total 0.5 mg/dL (0.1-1.0); Bun/Creatinine Ratio 22.4 (12.0-20.0); Creatinine, Blood 0.71 mg/dL (0.40-1.00); Globulin, Blood 2.9 g/dL (2.2-4.0); Potassium, Blood 4.2 mmol/L (3.5-5.5); Total Protein, Blood 6.5 g/dL (6.4-8.2)
[2024-09-07 10:41] LABS: Source, Urine Straight Cath
[2024-09-07 10:52] LABS: Bilirubin, Urine Neg (Neg); Blood, Urine Neg (Neg); Glucose Qualitative, Urine Neg (Neg); Ketones, Urine 3+ (Neg); Leukocyte Esterase, Urine Neg (Neg); Nitrite, Urine Neg (Neg); Protein, Urine Neg (Neg); Urobilinogen, Urine NORM (Normal)
[2024-09-07 10:56] LABS: Appearance, Urine Clear (Clear); Color, Urine Yellow (P-Yellow)
[2024-09-07] MEDS ORDERED: Methyl Salicylate/Menth/Camph 57 GM TUBE TOP ONE (11:00)
[2024-09-07] MEDS ORDERED: Buprenorphine HCL/Naloxone HCL 8MG-2MG Tab SL ONE ×2 (11:00→12:50)
[2024-09-07] MEDS ORDERED: Aspirin 325 MG Tab PO ONE (12:55)
[2024-09-07] MEDS ORDERED: DiphenhydrAMINE HCl 50 MG/ML 1ML Vial IV ONE (13:20)
[2024-09-07] MEDS ORDERED: MethylPREDNISolone Sod Succ 125 MG Vial IV ONE (13:25)
[2024-09-07] MEDS ORDERED: MIDO5 PO (13:38)
[2024-09-07] MEDS ORDERED: BUPRENORP-NALO1 EAC3 SL (13:38)
[2024-09-07] MEDS ORDERED: Acetaminophen 325 MG TABLET PO PRN (14:05)
[2024-09-07] MEDS ORDERED: Ondansetron HCl 2 MG / ML 2ML Vial IV PRN (14:10)
[2024-09-07] MEDS ORDERED: Lactated Ringer's 1,000 ML IV SCH (14:10)
[2024-09-07] MEDS ORDERED: FentaNYL Citrate 50 MCG/ML 2 ML Injection IV PRN (14:10)
[2024-09-07] MEDS ORDERED: FLU VACC TS2024-25(6MOS UP)/PF 45 MCG/0.5 ML SYRINGE IM SCH (14:10)
[2024-09-07] MEDS ORDERED: Ketorolac Tromethamine 15mg Vial IV PRN (14:15)
[2024-09-07 14:36] LABS: U Amphetamine Screen Not Detected; U Barbituate Screen Not Detected; U Benzodiazapine Screen Not Detected; U Cannabinoids Screen DETECTED; U Cocaine Screen Not Detected; U Methadone Screen Not Detected; U Methamphetamine Screen Not Detected; U Opiates Screen Not Detected; U Phencyclidine Screen Not Detected
[2024-09-07 14:37] LABS: U Buprenorphine Screen DETECTED; U Oxycodone Screen Not Detected
[2024-09-07 15:32] VITALS: BP 121/82
[2024-09-07] MEDS ORDERED: Midodrine 5 MG Tab PO SCH (18:00)
--- NOTE | 2024-09-07 18:11 | NUR ---
SHIFT SUMMARY PT AO TO SELF, RESPONDS TO PAIN. MOANS WHEN SHE IS IN PAIN AND WILL ONLY RESPOND WITH "YES" OR "NO" QUESTIONS. OFTEN YELLS OUT AND DOES NOT USE HER CALL LIGHT. HAS NOT LEFT THE BED SINCE THE ADMIT THIS AFTERNOON. , LATRICE, AT THE BS. RESPOSITIONS SELF IN BED. NO EVENTS PER TELE. CALL LIGHT WITHIN REACH, BED LOCKED AND IN THE LOWEST POSITION. WILL REPORT TO ONCOMING NURSE.
[2024-09-07] MEDS ORDERED: NORTHERA200 MG PO (18:22)
--- NOTE | 2024-09-07 18:37 | NUR ---
SPOKE WITH SIGNIFICANT OTHER LATRICE. HE STATES PATIENT SELF MEDICATES BUT HE THINKS HE SHOULD BE TAKING THAT OVER DUE TO HER FORGETFULNESS AT HOME. HE IS UNSURE WHAT ALL SHE HAS TAKEN IN THE PAST 24-48 HOURS. HE REPORTS SHE HAS LOST 15-25 LB IN THE PAST 3 MONTHS AND HAS VERY LITTLE APPETITE. HE STATES HE IS UNSURE OF WHAT PARAMETERS ARE AROUND HER NEEDED MEDICATIONS. MIKHAIL RUSSO NOTIFIED OF THE ABOVE INFORMATION.
[2024-09-07 19:39] VITALS: BP 136/80
[2024-09-08 02:18] VITALS: BP 146/95
[2024-09-08 05:14] LABS: BASOPHILS ABSOLUTE AUTO 0.02 K/mm3 (0.00-0.23); BASOPHILS PERCENT AUTO 0 % (0-2); EOSINOPHILS ABSOLUTE AUTO 0.06 K/mm3 (0.00-0.68); EOSINOPHILS PERCENT AUTO 1 % (0-6); Hematocrit 33.5 % (33.0-51.0); Hemoglobin 10.7 g/dL (11.5-16.0); IMMATURE GRAN ABSOLUTE AUTO 0.01 K/mm3 (0.00-0.10); IMMATURE GRAN PERCENT AUTO 0 % (0-1); LYMPHOCYTES ABSOLUTE AUTO 1.33 K/mm3 (0.84-5.20); LYMPHOCYTES PERCENT AUTO 29 % (21-46); MONOCYTES ABSOLUTE AUTO 0.49 K/mm3 (0.16-1.47); MONOCYTES PERCENT AUTO 11 % (4-13); Mean Corpuscular HGB 30.4 pg (26.0-34.0); Mean Corpuscular HGB Conc 31.9 g/dL (31.5-36.5); Mean Corpuscular Volume 95 fL (80-100); Mean Platelet Volume 10.8 fL (9.1-12.4); NEUTROPHILS ABSOLUTE AUTO 2.63 K/mm3 (1.96-9.15); NEUTROPHILS PERCENT AUTO 58 % (41-73); Platelet Count 253 K/mm3 (150-400); RDW Coefficient Variation 13.4 % (11.7-14.2); RDW Standard Deviation 46.8 fL (35.1-46.3); Red Blood Cell Count 3.52 M/mm3 (3.80-5.20); White Blood Cell Count 4.54 K/mm3 (4.00-11.30)
[2024-09-08 05:36] LABS: Bun/Creatinine Ratio 29.3 (12.0-20.0); Calcium, Blood 8.4 mg/dL (8.5-10.1); Creatinine, Blood 0.62 mg/dL (0.40-1.00); Potassium, Blood 4.1 mmol/L (3.5-5.5)
[2024-09-08 07:32] VITALS: BP 131/80
[2024-09-08] MEDS ORDERED: Enoxaparin 40 MG/0.4 ML SYR SC SCH (09:00)
[2024-09-08] MEDS ORDERED: OxyCODONE 5 mg/Acetamin 325 mg TABLET PO PRN (10:35)
[2024-09-08 10:54] VITALS: BP 135/89
[2024-09-08 13:31] VITALS: BP 153/89
--- NOTE | 2024-09-08 14:09 | NUR ---
Spoke with pt's PORFIRIO and ex- Lang who reports they went to the [facility] 3 years ago, and at that time they told patient she would live approximately another 18 months. He states 3 years was more than they ever expected and they are both grateful. We discussed pt's physical decline and uncontrolled pain. He states he believes it's time for hospice, but wants to talk to her before we do. He will be arriving in an hour, then we'll meet again for advanced planning, and to address pt's pain.
--- NOTE | 2024-09-08 14:17 | NUR ---
PATIENT CALLING OUT IN PAIN, MOANING, AND RESTLESS. MULTIPLE PRN MEDICATIONS ADMINISTERED INCLUDING FENTANYL, PERCOCET, TORADOL, INEFFECTIVE. PATIENT WITH CHRONIC PAIN ISSUES, PER MARK, SIGNIFICANT OTHER. BACK STIMULATOR PRESENT. MD NOTIFED VIA TELEPHONE AND HAVE SPOKEN WITH PALLIATIVE CARE NURSE MULTIPLE TIMES THROUGHOUT THE MORNING TO ALLEVIATE PATIENT'S PAIN AND MAKE HER COMFORTABLE. PATIENT'S BP ELEVATED, BUT VSS. TACHYPNEA NOTED AND IRREGULAR BREATHING. WILL CONTINUE TO MONITOR.
[2024-09-08] MEDS ORDERED: LORazepam 2 MG/ML 1ML Injection IV ONE (14:20)
[2024-09-08 14:30] VITALS: BP 163/100
[2024-09-08] MEDS ORDERED: LORazepam 2 MG/ML 1ML Injection IV PRN (15:30)
--- NOTE | 2024-09-08 17:54 | NUR ---
SHIFT SUMMARY PATIENT WITH IMPROVING MENTATION SINCE THIS AM, CURRENTLY A/OX3. NOW ABLE TO MAKE NEEDS KNOWN. COMPLAINING OF NAUSEA THIS AM, PRN ZOFRAN GIVEN. UNABLE TO CONTROL PATIENT'S PAIN THIS AM DESPITE GIVING MULTIPLE PRN MEDICATIONS. MD NOTIFIED WELL PALLIATIVE CARE. HOWEVER, AFTER ADMINISTRATING ONE TIME DOSE OF ATIVAN PATIENT BECAME MORE ALERT AND STATED HER PAIN WAS MORE CONTROLLED. THIS MORNING PATIENT ALERT TO SELF, BUT CONFUSED, MOANING IN PAIN, CALLING OUT "HELP ME" FREQUENTLY. THESE SYMTPOMS HAVE NOW RESOLVED. IV FLUIDS RUNNING PER JAN. MRI FORM COMPLETED WITH MARK MONROY, MRI UNABLE TO BE COMPLETED DUE TO PATIENT HAVING BACK STIMULULATOR. MD INFORMED. PLAN TO HAVE EEG TO RULE OUT SEIZURES. TELEMETRY IN PLACE, NO EVENTS NOTED THIS SHIFT. PATIENT 1 PERSON ASSIST TO BEDSIDE COMMODE, CONTINENT OF BOWEL AND BLADDER. NO OTHER CONCERNS AT THIS TIME.
[2024-09-08 19:52] VITALS: BP 159/95
[2024-09-08] MEDS ORDERED: LevETIRAcetam 500 MG Tab PO SCH (21:00)
[2024-09-09 02:36] VITALS: BP 156/94
[2024-09-09 05:41] LABS: BASOPHILS ABSOLUTE AUTO 0.03 K/mm3 (0.00-0.23); BASOPHILS PERCENT AUTO 1 % (0-2); EOSINOPHILS ABSOLUTE AUTO 0.07 K/mm3 (0.00-0.68); EOSINOPHILS PERCENT AUTO 2 % (0-6); Hematocrit 33.5 % (33.0-51.0); Hemoglobin 10.6 g/dL (11.5-16.0); IMMATURE GRAN ABSOLUTE AUTO 0.01 K/mm3 (0.00-0.10); IMMATURE GRAN PERCENT AUTO 0 % (0-1); LYMPHOCYTES ABSOLUTE AUTO 1.27 K/mm3 (0.84-5.20); LYMPHOCYTES PERCENT AUTO 31 % (21-46); MONOCYTES ABSOLUTE AUTO 0.37 K/mm3 (0.16-1.47); MONOCYTES PERCENT AUTO 9 % (4-13); Mean Corpuscular HGB 30.4 pg (26.0-34.0); Mean Corpuscular HGB Conc 31.6 g/dL (31.5-36.5); Mean Corpuscular Volume 96 fL (80-100); Mean Platelet Volume 10.5 fL (9.1-12.4); NEUTROPHILS PERCENT AUTO 57 % (41-73); Platelet Count 235 K/mm3 (150-400); RDW Coefficient Variation 13.2 % (11.7-14.2); RDW Standard Deviation 46.9 fL (35.1-46.3); Red Blood Cell Count 3.49 M/mm3 (3.80-5.20); White Blood Cell Count 4.05 K/mm3 (4.00-11.30)
[2024-09-09 06:18] LABS: Bun/Creatinine Ratio 18.5 (12.0-20.0); Calcium, Blood 8.6 mg/dL (8.5-10.1); Creatinine, Blood 0.76 mg/dL (0.40-1.00); Free Thyroxine 0.87 ng/dL (0.70-1.60); Potassium, Blood 4.3 mmol/L (3.5-5.5); Thyroid Stimulating Hormone 0.026 uIU/mL (0.360-4.800); Triiodothyronine, Free 2.68 pg/mL (2.18-3.98)
--- NOTE | 2024-09-09 06:50 | NUR ---
AO3 pt reports anxiousness and c/o pain 5/10 to back however refuses pain medication reports, refuses prn medication. LR IV continuous, pt implusive bed alarm 2x during night, sba, fall precautions in place, call light wn reach
[2024-09-09 07:20] VITALS: BP 168/98
[2024-09-09] MEDS ORDERED: LEVE500 PO (11:27)
[2024-09-09] MEDS ORDERED: Percocet 5-3251 EACH PO (11:28)
--- NOTE | 2024-09-09 12:29 | NUR ---
DISCHARGE NOTE: PATIENT DECIDED TO WAIT AND DO THE EEG OUTPATIENT; THEY WILL CALL AND SCHEDULE HER FOR FRIDAY. PATIENT NOTIFIED AND ANSWERED QUESTIONS REGUARDING DISCHARGE WITH HER AT BEDSIDE. PATIENT'S IV AND TELE REMOVED. PATIENT GOT READY BY FIRST LEVELER AND WAS WHEELED DOWN WITH TO VEHICLE. NO SIGNS OR SYMPTOMS OF DISTRESS DURING DISCHARGE.
== END 2024-09-09 11:57 | disposition home or self-care (01) | DRG 101 ==
LOC: ER 08:12 → MEDS 08:13 → ENPENDDIS 09-09 11:40 → MEDS 09-09 11:57
PROVIDERS: Student in an Organized Health Care Education/Training Program; ADMIT Family Medicine
DX: R56.9 Unspecified convulsions (principal); R64 Cachexia; G25.3 Myoclonus; M79.7 Fibromyalgia; G25.81 Restless legs syndrome; M54.2 Cervicalgia; I48.91 Unspecified atrial fibrillation; M19.90 Unspecified osteoarthritis, unspecified site; G47.00 Insomnia, unspecified; I95.1 Orthostatic hypotension; F03.90 Unspecified dementia, unspecified severity, without behavioral disturbance, psychotic disturbance, mood disturbance, and anxiety; Z90.89 Acquired absence of other organs; Z98.890 Other specified postprocedural states; Z87.891 Personal history of nicotine dependence; Z66 Do not resuscitate; Z88.5 Allergy status to narcotic agent; Z91.041 Radiographic dye allergy status; Z79.899 Other long term (current) drug therapy; Z68.20 Body mass index [BMI] 20.0-20.9, adult
CPT/HCPCS: 0241U; 36415; 70450; 72125; 80048; 80053; 81003; 82140; 82803; 82947; 83735; 84146; 84439; 84443; 84481; 85025; 93005; 93010; 93880; 93971; 96372; 96374; 96375; 96376; 99285-25; A9270; G0378; J1650; J1885; J2060; J2405; J3010; J7120; P9612